=== PATIENT | female | born 1940 | race Caucasian/White ===

== ENCOUNTER 2017-09-07 09:49 | Emergency (ER) | payer OTHER, SELFPAY ==
[2017-09-07 10:00] VITALS: BP 128/70; PULSE 88; RESP 18; TEMP 36.7; O2SAT 97
--- NOTE | 2017-09-07 10:00 | ED_ITS ---
HPI - Skin/Abscess/Foreign Bdy General Chief complaint: Skin/Abscess/Foreign Body Stated complaint: cat scratch on right leg/increasing redness Time Seen by Provider: 09/07/17 09:53 Source: patient Mode of arrival: ambulatory Limitations: no limitations History of Present Illness HPI narrative: 76-year-old female here for evaluation of suspected infection in her right lower extremity. Patient states that 2 days ago she was scratched by her cat. Went into the walk-in clinic and was given a prescription for azithromycin. She states that she took the 1st dose of that medication last evening however threw up shortly afterwards. States she took another dose of the antibiotic this morning and did not throw up. She states that she woke up this morning and had increasing redness in her lower extremity went back in to the walk-in clinic to instructed her to come to the emergency department. She reports no fevers. Minimal pain in her right lower extremity. Is able to ambulate. Related Data Home Medications Medication Instructions Recorded Confirmed ibuprofen [Advil] #0 05/21/16 09/06/17 pentosan polysulfate sodium 100 mg PO TID #0 05/21/16 09/06/17 [Elmiron] multivitamin [Multiple Vitamins] 1 tab PO QDAY #0 10/25/16 09/06/17 Previous Rx's Medication Instructions Recorded acetaminophen-codeine 1 tab PO Q6HP PRN #30 tab 07/30/16 diclofenac sodium [Voltaren] 1 alvin TOPICAL QIDP PRN #100 gm 07/30/16 oxybutynin chloride 5 - 10 mg PO QDAY #90 tab 07/30/16 DIPHENHYDRAMINE/LIDO VISC/MAALOX 0 ml PO Q4HP PRN #100 ml 09/30/16 1:1:1~ clotrimazole 10 mg PO 5XD #70 olga 09/30/16 DIPHENHYDRAMINE/LIDO VISC/MAALOX 5 ml PO Q4HP PRN #100 ml 01/13/17 1:1:1~ [Compression Socks] #2 01/13/17 rizatriptan [Maxalt] 10 mg PO QDAYP PRN #30 tab 01/13/17 triamcinolone acetonide 1 alvin TOPICAL BID #15 gm 02/14/17 doxepin 25 mg PO QDAY #30 cap 03/14/17 nystatin [Nystop] 100,000 unit TOPICAL BID #30 gm 03/14/17 atenolol 50 mg PO QDAY #180 tab 06/03/17 cephalexin [Keflex] 500 mg PO TID #15 cap 07/04/17 lorazepam 0.5 mg tablet 0.5 mg PO PRN PRN #90 tab 08/27/17 azithromycin 250 mg tablet See Label Instructions PO .COMPLEX 09/06/17 #6 tab doxycycline hyclate 100 mg PO Q12H 7 Days #14 cap 09/07/17 ondansetron [Zofran ODT] 4 mg PO Q6H PRN #7 tab 09/07/17 Allergies Allergy/AdvReac Type Severity Reaction Status Date / Time phenazopyridine [From AZO] Allergy Mild RASH Verified 09/06/17 13:58 ranitidine [RANITIDINE] Allergy Unknown Verified 09/06/17 13:58 Review of Systems Constitutional Denies chills, Denies fever(s), Denies lethargy and Denies weakness ENT Ears, Nose, Mouth, and Throat: Denies throat swelling Respiratory Denies wheezing Musculoskeletal Comments: Redness with minimal swelling to her right lower extremity around the area where she was scratched by her cat Integumentary/Breasts Comments: Worsening redness right lower extremity Neurologic Denies weakness Comments: No numbness or tingling right lower extremity Hematologic/Lymphatic Denies easy bruising Allergic/Immunologic Denies urticaria, Denies throat swelling and Denies wheezing [facility] Surgical History History of cataract removal with insertion of prosthetic lens History of tonsillectomy Social History Smoking Status: Never smoker Exam Initial Vital Signs Initial Vital Signs: Vital Signs Temperature 98.0 F 09/07/17 10:00 Pulse Rate 88 09/07/17 10:00 Respiratory Rate 18 09/07/17 10:00 Blood Pressure 128/70 H 09/07/17 10:00 Pulse Oximetry 97 09/07/17 10:00 Const General: cooperative and well developed Nutritional Appearance: well nourished Orientation: alert, awake, oriented x3 and not confused Cardio Other: 2+ DP pulse on the right lower extremity Capillary refill less than 2 sec Skin Other: Patient with 3 scratches on the lateral aspect of her right lower extremity just proximal to the ankle consistent with her stated history of a cat scratch. No bleeding. No pustules. With scabs over the area. Patient with a large area of erythema that is minimally warm and not tender to palpation that is circumferential around her right lower extremity does not go distal to the ankle does not go proximal to the mid calf. No pustules. No vesicles. Neuro Other: Sensation intact to light touch right lower extremity Patient ambulatory Extrem Other: Redness around her right lower extremities as described in the skin section. Patient able to move right knee without problems right ankle without problems. Course Vital Signs - 8 hr 09/07/17 10:00 09/07/17 11:11 Temperature 98.0 F Pulse Rate 88 80 Respiratory Rate 18 18 Blood Pressure 128/70 H 116/71 Pulse Oximetry 97 97 MDM - Skin/Abscess/Foreign Bdy MDM Narrative Medical decision making narrative: Patient with redness and minimally warm area on her right lower extremity and in the setting of the cat scratches concerning for cellulitis. Patient is afebrile. Is nontoxic appearing. Unsure as to whether this is a outpatient treatment failure since she did vomit her azithromycin last night. Azithromycin was prescribed by the walk-in clinic. She did take 1 dose of it this morning. Her exam is not consistent with an abscess. Not consistent with septic joint. Considered admitting to the hospital for IV antibiotics however in the setting of her not having a course of antibiotics at home will send home with doxycycline. Patient was instructed to stop these with Azithromycin. The area of redness was outlined. She was given return precautions. She is instructed that if she started to have fevers , inability to tolerate the oral antibiotics or redness expanding outside of the outlined area she needed to return to the emergency department for admission and IV antibiotics. She expressed understanding and agreement with plan Discharge Plan Departure Patient Disposition: Home, Self-Care Clinical Impression: Cellulitis Discharge Date/Time: 09/07/17 11:01 Interventions: ED Discharge Assessment Last Done: 09/07/17 11:11 Instructions: DI for Cellulitis -- Adult Activity Restrictions/Additional Instructions: Stop the antibiotics that you were given yesterday and start the antibiotics that I gave you today. You may shower like normal. If you start to develop fevers, inability to take the oral antibiotics or spread of the redness outside of the outlined area you do need to return to the emergency department for further evaluation. Prescriptions: New doxycycline hyclate 100 mg capsule 100 mg PO Q12H 7 Days Qty: 14 RF: 0 ondansetron [Zofran ODT] 4 mg tablet,disintegrating 4 mg PO Q6H PRN (Reason: nausea and vomiting) Qty: 7 RF: 0 No Action azithromycin [Zithromax Z-Franco] 250 mg tablet See Label Instructions PO .COMPLEX Qty: 6 RF: 0 pentosan polysulfate sodium [Elmiron] 100 MG capsule 100 mg PO TID Qty: 0 RF: 0 ibuprofen [Advil] 100 MG tablet Qty: 0 RF: 0 acetaminophen-codeine 30 MG/300 MG tablet 1 tab PO Q6HP PRNQty: 30 RF: 0 oxybutynin chloride 5 MG tablet 5 - 10 mg PO QDAY Qty: 90 RF: 1 diclofenac sodium [Voltaren] 1 % gel 1 alvin Topical QIDP PRNQty: 100 RF: 2 DIPHENHYDRAMINE/LIDO VISC/MAALOX 1:1:1~ 100 ML PO Q4HP PRNQty: 100 RF: 0 clotrimazole 10 MG alexys 10 mg PO 5XD Qty: 70 RF: 0 multivitamin [Multiple Vitamins] 1 EACH tablet 1 tab PO QDAY Qty: 0 RF: 0 rizatriptan [Maxalt] 10 MG tablet 10 mg PO QDAYP PRNQty: 30 RF: 1 DIPHENHYDRAMINE/LIDO VISC/MAALOX 1:1:1~ 100 ML 5 ml PO Q4HP PRNQty: 100 RF: 1 [Compression Socks] Qty: 2 RF: 0 triamcinolone acetonide 0.1 % ointment 1 alvin Topical BID Qty: 15 RF: 0 doxepin 25 MG capsule 25 mg PO QDAY Qty: 30 RF: 1 nystatin [Nystop] 30 GM powder 100,000 unit Topical BID Qty: 30 RF: 1 atenolol 25 MG tablet 50 mg PO QDAY Qty: 180 RF: 1 cephalexin [Keflex] 500 MG capsule 500 mg PO TID Qty: 15 RF: 0 lorazepam [Ativan] 0.5 mg tablet 0.5 mg PO PRN PRN (Reason: anxiety) Qty: 90 RF: 0
[2017-09-07 11:11] VITALS: BP 116/71; PULSE 80; RESP 18; O2SAT 97
== END 2017-09-07 11:01 | disposition home or self-care (01) ==
PROVIDERS: Emergency Provider Emergency Medicine; PCP Family Medicine
DX: L03.115 Cellulitis of right lower limb (principal)
CPT/HCPCS: 99282

== ENCOUNTER 2017-09-08 07:49 | Emergency (ER) | payer OTHER, SELFPAY ==
--- NOTE | 2017-09-08 08:41 | ED.SKABFB ---
HPI - Skin/Abscess/Foreign Bdy General Chief complaint: Skin/Abscess/Foreign Body Stated complaint: BAD RASH GETTING WORSE Time Seen by Provider: 09/08/17 08:29 Source: patient Mode of arrival: ambulatory Limitations: no limitations History of Present Illness HPI narrative: Patient is here for evaluation of right lower extremity cellulitis. I evaluated this patient yesterday for concerns of worsening infection after she sustained a cat bite to her right lower extremity. I did start her on amoxicillin yesterday. She states she took 2 doses that amoxicillin. She states that she returned today because she was having some pain and redness in her right upper thigh was instructed to return if the redness worsened. No fevers. Related Data Home Medications Medication Instructions Recorded Confirmed ibuprofen [Advil] #0 05/21/16 09/06/17 pentosan polysulfate sodium 100 mg PO TID #0 05/21/16 09/06/17 [Elmiron] multivitamin [Multiple Vitamins] 1 tab PO QDAY #0 10/25/16 09/06/17 Previous Rx's Medication Instructions Recorded acetaminophen-codeine 1 tab PO Q6HP PRN #30 tab 07/30/16 diclofenac sodium [Voltaren] 1 alvin TOPICAL QIDP PRN #100 gm 07/30/16 oxybutynin chloride 5 - 10 mg PO QDAY #90 tab 07/30/16 DIPHENHYDRAMINE/LIDO VISC/MAALOX 0 ml PO Q4HP PRN #100 ml 09/30/16 1:1:1~ clotrimazole 10 mg PO 5XD #70 olga 09/30/16 DIPHENHYDRAMINE/LIDO VISC/MAALOX 5 ml PO Q4HP PRN #100 ml 01/13/17 1:1:1~ [Compression Socks] #2 01/13/17 rizatriptan [Maxalt] 10 mg PO QDAYP PRN #30 tab 01/13/17 triamcinolone acetonide 1 alvin TOPICAL BID #15 gm 02/14/17 doxepin 25 mg PO QDAY #30 cap 03/14/17 nystatin [Nystop] 100,000 unit TOPICAL BID #30 gm 03/14/17 atenolol 50 mg PO QDAY #180 tab 06/03/17 cephalexin [Keflex] 500 mg PO TID #15 cap 07/04/17 azithromycin 250 mg tablet See Label Instructions PO .COMPLEX 09/06/17 #6 tab doxycycline hyclate 100 mg PO Q12H 7 Days #14 cap 09/07/17 ondansetron [Zofran ODT] 4 mg PO Q6H PRN #7 tab 09/07/17 lorazepam 0.5 mg tablet 0.5 mg PO PRN PRN #90 tab 09/08/17 Allergies Allergy/AdvReac Type Severity Reaction Status Date / Time phenazopyridine [From AZO] Allergy Mild RASH Verified 09/06/17 13:58 ranitidine [RANITIDINE] Allergy Unknown Verified 09/06/17 13:58 Review of Systems Constitutional Denies chills, Denies fever(s), Denies lethargy and Denies weakness Cardiovascular Denies chest pain and Denies dyspnea Respiratory Denies cough and Denies dyspnea Gastrointestinal Gastrointestinal: Denies constipation, Denies diarrhea, Denies nausea and Denies vomiting Musculoskeletal Comments: No right knee pain no right ankle pain no right foot pain Integumentary/Breasts Comments: Redness to right lower extremity Neurologic Denies weakness Comments: No tingling to the right lower extremity Hematologic/Lymphatic Denies easy bruising PFSH Social History Smoking Status: Never smoker Exam Initial Vital Signs Initial Vital Signs: Vital Signs Temperature 97.9 F 09/08/17 08:44 Pulse Rate 80 09/08/17 08:44 Respiratory Rate 18 09/08/17 08:44 Blood Pressure 125/76 H 09/08/17 08:44 Pulse Oximetry 95 09/08/17 08:44 Skin Other: Patient with redness on the right lower extremity that is consistent with yesterday's exam. Does not extend past the markings. Does seem to be slightly improved from yesterday's exam. The redness in her right groin is minimal. Is somewhat tender to palpation Neuro Other: Sensation intact to light touch right lower extremity Extrem Other: Right knee unremarkable Right ankle unremarkable MDM - Skin/Abscess/Foreign Bdy MDM Narrative Medical decision making narrative: Patient has taken 2 doses of her antibiotics. The redness of her right lower extremity is certainly not worse and potentially is improved from yesterday's exam. She is nontoxic-appearing. The pain in her right groin and his expected in this situation. I suspect that these are reactive lymph nodes. I did discuss with the patient the indications for admission to the hospital. Offered admission versus follow up with her primary care doctor. I did leave the room to call the primary care doctor to see if I could set up a follow-up in 1 week's time. Prior to my discussion with the primary doctor and prior to my return to the room the patient and family member had left. Uncertain as to whether they eloped or whether nursing discharged the patient by mistake. This was done prior to my placing a discharge order. We did discuss return precautions prior to my leaving the room to call the primary doctor. I was told that the patient left and was going to go down to her primary doctor's office to schedule follow-up appointment. Discharge Plan Departure Patient Disposition: Home, Self-Care Clinical Impression: Cellulitis Discharge Date/Time: 09/08/17 09:00 Interventions: ED Discharge Assessment Last Done: 09/08/17 09:00 Prescriptions: No Action azithromycin [Zithromax Z-Franco] 250 mg tablet See Label Instructions PO .COMPLEX Qty: 6 RF: 0 pentosan polysulfate sodium [Elmiron] 100 MG capsule 100 mg PO TID Qty: 0 RF: 0 ibuprofen [Advil] 100 MG tablet Qty: 0 RF: 0 acetaminophen-codeine 30 MG/300 MG tablet 1 tab PO Q6HP PRNQty: 30 RF: 0 oxybutynin chloride 5 MG tablet 5 - 10 mg PO QDAY Qty: 90 RF: 1 diclofenac sodium [Voltaren] 1 % gel 1 alvin Topical QIDP PRNQty: 100 RF: 2 DIPHENHYDRAMINE/LIDO VISC/MAALOX 1:1:1~ 100 ML PO Q4HP PRNQty: 100 RF: 0 clotrimazole 10 MG alexys 10 mg PO 5XD Qty: 70 RF: 0 multivitamin [Multiple Vitamins] 1 EACH tablet 1 tab PO QDAY Qty: 0 RF: 0 rizatriptan [Maxalt] 10 MG tablet 10 mg PO QDAYP PRNQty: 30 RF: 1 DIPHENHYDRAMINE/LIDO VISC/MAALOX 1:1:1~ 100 ML 5 ml PO Q4HP PRNQty: 100 RF: 1 [Compression Socks] Qty: 2 RF: 0 triamcinolone acetonide 0.1 % ointment 1 alvin Topical BID Qty: 15 RF: 0 doxepin 25 MG capsule 25 mg PO QDAY Qty: 30 RF: 1 nystatin [Nystop] 30 GM powder 100,000 unit Topical BID Qty: 30 RF: 1 atenolol 25 MG tablet 50 mg PO QDAY Qty: 180 RF: 1 cephalexin [Keflex] 500 MG capsule 500 mg PO TID Qty: 15 RF: 0 lorazepam [Ativan] 0.5 mg tablet 0.5 mg PO PRN PRN (Reason: anxiety) Qty: 90 RF: 0 doxycycline hyclate 100 mg capsule 100 mg PO Q12H 7 Days Qty: 14 RF: 0 ondansetron [Zofran ODT] 4 mg tablet,disintegrating 4 mg PO Q6H PRN (Reason: nausea and vomiting) Qty: 7 RF: 0
[2017-09-08 08:44] VITALS: BP 125/76; PULSE 80; RESP 18; TEMP 36.6; O2SAT 95
== END 2017-09-08 09:00 | disposition home or self-care (01) ==
PROVIDERS: Emergency Provider Emergency Medicine; PCP Family Medicine
DX: L03.115 Cellulitis of right lower limb (principal)
CPT/HCPCS: 99282

== ENCOUNTER → 2017-09-12 14:25 | Outpatient (CLI) | payer OTHER, SELFPAY ==
[2017-09-12 14:59] LABS: Add Manual Diff / Slide Review NO; Basophils Percent Auto 1.1 % (0-2); Eosinophils Percent Auto 2.4 % (2-4); Hematocrit 41.8 % (36-46); Hemoglobin 14.7 g/dL (12.0-16.0); Lymphocytes Percent Auto 30.7 % (25-40); Mean Corpuscular Hemoglobin 33.1 PG (26-34); Mean Corpuscular Volume 94.4 fL (80-100); Monocytes Percent Auto 10.3 % (3-14); Neutrophils Absolute Auto 4800 /uL (3000-5900); Neutrophils Percent Auto 55.5 % (50-75); Platelet Count 235 X10^3/uL (150-400); Red Blood Cell Count 4.43 X10^6/uL (4.0-5.2); White Blood Cell Count 8.7 X10^3/uL (4.5-11.0)
== END ==
PROVIDERS: PCP Family Medicine; Visit Provider Family Medicine
DX: L03.90 Cellulitis, unspecified (principal)
CPT/HCPCS: 36415; 85025; 87040

== ENCOUNTER 2017-10-03 09:45 | Outpatient (RCR) | payer OTHER, SELFPAY ==
--- NOTE | 2017-09-12 16:58 | PT.OIE ---
Current Diagnoses Pain in right hip (09/12/17) Low back pain (09/12/17) Trochanteric bursitis, right hip (09/12/17) Past Medical History (Last Updated 09/12/17 @ 16:18 by Anila Kinney, PT) Depression (Acute) Past Surgical History (Last Reviewed 09/07/17 @ 10:49 by Angelito Martinez DO) History of cataract removal with insertion of prosthetic lens History of tonsillectomy Provider Visit Care Team Role Provider Type Rebecca Webber MD Attending Provider Physician Primary Care Provider Specialty: Family Practice Address: [address] [place] [address] Email: [email or web address] Physical Therapy Initial Evaluation PT-OP-A Visit Information Start: 09/12/17 08:29 Freq: Status: Active Protocol: Document 09/12/17 10:30 AMB (Rec: 09/12/17 16:17 AMB [email or web address]) Out-Patient Physical Therapy Visit Information Visit Information Visit Type Initial Evaluation Visit Note 15 visits authorized Visit Start Time 10:30 Visit Stop Time 11:15 Total Visit Minutes 45 Visit Number 1 Evaluation Information Evaluation Date 09/12/17 PT-OP-B Current Condition Start: 09/12/17 08:29 Freq: Status: Active Protocol: Document 09/12/17 16:19 AMB (Rec: 09/12/17 16:23 AMB [email or web address]) Current Condition History of Current Condition Current Complaints R>L hip pain with low back pain History of Current Condition Pt reports a long history of insidious onset hip and low back pain. She has had cortisone injections in her trochanteric bursas which help somewhat. She has had X-rays of her hips and knees years ago. Treatment Goals Patient/Caregiver Goals Return to [employer] Prior Functional Status Baseline Function- ADL's Independent Baseline Function- Mobility Independent Current Functional Impairments (Reported) Functional Limitations- ADL's Difficulty sleeping and driving due to hip/low back pain. Personal Factors Other Personal Factors That May Effect has an Alzheimer's Therapy/Recovery diagnosis and they live independently in their home. PT-OP-C Subjective Start: 09/12/17 08:29 Freq: Status: Active Protocol: Document 09/12/17 10:30 AMB (Rec: 09/12/17 16:17 AMB [email or web address]) OP-PT Subjective Patient Comments Patient Comments Pt reports chronic R>L hip and low back pain worse with extended standing and walking. Patient Questionnaires Lower Extremity Functional Scale LEFS Score 39 LEFS Impairment 40 to 59% Impaired (Score 32- 47) Oswestry Low Back Index Oswestry Score 35 Oswestry Impairment 20 to 39% Impaired (Score 20- 39) OP-PT Pain Assessment Pain Assessment Grid Paper Pain Assessment Grid Completed Yes Location R>L hip, low back Intensity 5 PT-OP-J Posture/Palpation/Skin Start: 09/12/17 08:29 Freq: Status: Active Protocol: Document 09/12/17 16:19 AMB (Rec: 09/12/17 16:23 AMB [email or web address]) Posture Evaluation Comments Posture Comments Right hip high in standing Palpation Assessment Location One Palpation Location lateral thighgs Palpation Findings Tenderness Palpation Details Tenderness over IT band L>R Skin Assessment Other Assessments Skin Assessment Comments Pt seen for cellulitis in ED for R lower leg infection after a cat scratch, currently on antibiotics PT-OP-K Range of Motion Start: 09/12/17 08:29 Freq: Status: Active Protocol: Document 09/12/17 10:30 AMB (Rec: 09/12/17 16:48 AMB [email or web address]) Lumbar Spine Range of Motion Lumbar Spine Active Degrees Testing Position standing Flexion 60 Extension 20 Lateral Flexion Left 20 Lateral Flexion Right 15 Hip Goniometric Range of Motion Hip Measured in Degrees Right Passive Testing Position Supine Flexion w/Knee Flexed 120 Internal Rotation 30 External Rotation 45 Left Passive Testing Position Supine Flexion w/Knee Flexed 110 Internal Rotation 45 External Rotation 50 PT-OP-M Strength Start: 09/12/17 08:29 Freq: Status: Active Protocol: Document 09/12/17 09:00 AMB (Rec: 09/12/17 16:57 AMB [email or web address]) Hip Strength Hip Manual Muscle Testing Left Flexion (L2) 4 Good Extension (S1) 3+ Fair+ Abduction 4 Good Right Flexion (L2) 4- Good- Extension (S1) 3 Fair Abduction 4 Good PT-OP-T Assessment and Plan Start: 09/12/17 08:29 Freq: Status: Active Protocol: Document 09/12/17 10:30 AMB (Rec: 09/12/17 16:56 AMB [email or web address]) Physical Therapy Assessment Rehab Potential Rehabilitation Potential Good Evaluation Complexity Number of Personal Factors/Comorbidities 1-2 Number of Body Systems Impaired 4 or More Clinical Presentation at Evaluation Evolving Impairments Impairments Functional Activities Pain Posture Soft Tissue Mobility Strength Goals 2 Impairment Return to exercise Short Term Goal (STG) The patient will be independent with a stretching and strengthening program for her hips and back. STG Duration 4 weeks Long-Term Goal (LTG) The patient will be independent and consistent with her return to a flux - neutrinity exercise program. LTG Duration 8 weeks 1 Impairment Positional tolerance Short Term Goal (STG) The patient will sleep for 7 hours with 3/10 hip pain or less. STG Duration 4 weeks [employer] Goal (LTG) The patient will drive for 2 hours with 3/10 hip pain or less. LTG Duration 8 weeks Assessment Summary Assessment The patient attends physical therapy with chronic R>L hip and low back pain. She had poor hip extension strength, and has poor posutral habits. She will benefit from a physical therapy program to improve her posture, core strength, and hip strength so that she can improve her standing, sitting, and sleeping tolerance. Physical Therapy Plan Frequency and Duration Frequency of Treatment 2x/Week Duration of Treatment 8 weeks Plan of Care Start Date 09/12/17 Plan of Care End Date 11/07/17 Therapeutic Interventions Therapeutic Interventions Aquatic Therapy Balance Training Gait Training Home Exercise Program Manual Therapy Neuromuscular Re-education Self-Care/Home Management Therapeutic Activities Therapeutic Exercises Modalities Cold Pack/Ice Massage Electric Stimulation Hot Packs Ultrasound Next Visit Focus/Plan Next Note Type Treatment Note Please Sign and Return: I have reviewed this Plan of Care and certify that the skilled therapy services above are required to meet the patient???s needs. Physician Signature Date Printed Name and Credentials Clinical Instructor Signature Printed Name and Credentials
--- NOTE | 2017-09-12 17:03 | PT.OPPOC ---
Current Diagnoses Pain in right hip (09/12/17) Low back pain (09/12/17) Trochanteric bursitis, right hip (09/12/17) Provider Visit Care Team Role Provider Type Rebecca Webber MD Attending Provider Physician Primary Care Provider Specialty: Family Practice Address: [address] [place] [address], [facility] Email: [email or web address] Plan Of Care PT-OP-T Assessment and Plan Start: 09/12/17 08:29 Freq: Status: Active Protocol: Document 09/12/17 10:30 AMB (Rec: 09/12/17 16:56 AMB [email or web address]) Physical Therapy Assessment Rehab Potential Rehabilitation Potential Good Evaluation Complexity Number of Personal Factors/Comorbidities 1-2 Number of Body Systems Impaired 4 or More Clinical Presentation at Evaluation Evolving Impairments Impairments Functional Activities Pain Posture Soft Tissue Mobility Strength Goals 2 Impairment Return to exercise Short Term Goal (STG) The patient will be independent with a stretching and strengthening program for her hips and back. STG Duration 4 weeks Fdc Goal (LTG) The patient will be independent and consistent with her return to a [employer] exercise program. LTG Duration 8 weeks 1 Impairment Positional tolerance Short Term Goal (STG) The patient will sleep for 7 hours with 3/10 hip pain or less. STG Duration 4 weeks [employer] Goal (LTG) The patient will drive for 2 hours with 3/10 hip pain or less. LTG Duration 8 weeks Assessment Summary Assessment The patient attends physical therapy with chronic R>L hip and low back pain. She had poor hip extension strength, and has poor posutral habits. She will benefit from a physical therapy program to improve her posture, core strength, and hip strength so that she can improve her standing, sitting, and sleeping tolerance. Physical Therapy Plan Frequency and Duration Frequency of Treatment 2x/Week Duration of Treatment 8 weeks Plan of Care Start Date 09/12/17 Plan of Care End Date 11/07/17 Therapeutic Interventions Therapeutic Interventions Aquatic Therapy Balance Training Gait Training Home Exercise Program Manual Therapy Neuromuscular Re-education Self-Care/Home Management Therapeutic Activities Therapeutic Exercises Modalities Cold Pack/Ice Massage Electric Stimulation Hot Packs Ultrasound Next Visit Focus/Plan Next Note Type Treatment Note Plan of Care Dates Plan of Care Start Date 09/12/17 Plan of Care End Date 11/07/17 Please Sign and Return: I have reviewed this Plan of Care and certify that the skilled therapy services above are required to meet the patient???s needs. Physician Signature Date Printed Name and Credentials Clinical Instructor Signature Printed Name and Credentials
--- NOTE | 2017-09-19 07:08 | PT.OTN ---
Current Diagnoses Pain in right hip (09/18/17) Low back pain (09/18/17) Trochanteric bursitis, right hip (09/18/17) Physical Therapy Treatment Note PT-OP-A Visit Information Start: 09/12/17 08:29 Freq: Status: Active Protocol: Document 09/18/17 11:15 AMB (Rec: 09/18/17 11:15 AMB [id number]) Out-Patient Physical Therapy Visit Information Visit Information Visit Type Treatment Note Visit Note 15 v authorized Visit Start Time 11:15 Visit Stop Time 12:00 Total Visit Minutes 45 Visit Number 2 Evaluation Information Evaluation Date 09/12/17 PT-OP-B Current Condition Start: 09/12/17 08:29 Freq: Status: Active Protocol: Document 09/12/17 16:19 AMB (Rec: 09/12/17 16:23 AMB [email or web address]) Current Condition History of Current Condition Current Complaints R>L hip pain with low back pain History of Current Condition Pt reports a long history of insidious onset hip and low back pain. She has had cortisone injections in her trochanteric bursas which help somewhat. She has had X-rays of her hips and knees years ago. Treatment Goals Patient/Caregiver Goals Return to [employer] workout Prior Functional Status Baseline Function- ADL's Independent Baseline Function- Mobility Independent Current Functional Impairments (Reported) Functional Limitations- ADL's Difficulty sleeping and driving due to hip/low back pain. Personal Factors Other Personal Factors That May Effect has an Alzheimer's Therapy/Recovery diagnosis and they live independently in their home. PT-OP-C Subjective Start: 09/12/17 08:29 Freq: Status: Active Protocol: Document 09/18/17 11:15 AMB (Rec: 09/18/17 11:23 AMB [id number]) OP-PT Subjective Patient Comments Patient Comments The patient reports her hips are feeling better today. PT-OP-J Posture/Palpation/Skin Start: 09/12/17 08:29 Freq: Status: Active Protocol: Document 09/12/17 16:19 AMB (Rec: 09/12/17 16:23 AMB [email or web address]) Posture Evaluation Comments Posture Comments Right hip high in standing Palpation Assessment Location One Palpation Location lateral thighgs Palpation Findings Tenderness Palpation Details Tenderness over IT band L>R Skin Assessment Other Assessments Skin Assessment Comments Pt seen for cellulitis in ED for R lower leg infection after a cat scratch, currently on antibiotics PT-OP-K Range of Motion Start: 09/12/17 08:29 Freq: Status: Active Protocol: Document 09/12/17 10:30 AMB (Rec: 09/12/17 16:48 AMB [email or web address]) Lumbar Spine Range of Motion Lumbar Spine Active Degrees Testing Position standing Flexion 60 Extension 20 Lateral Flexion Left 20 Lateral Flexion Right 15 Hip Goniometric Range of Motion Hip Measured in Degrees Right Passive Testing Position Supine Flexion w/Knee Flexed 120 Internal Rotation 30 External Rotation 45 Left Passive Testing Position Supine Flexion w/Knee Flexed 110 Internal Rotation 45 External Rotation 50 PT-OP-M Strength Start: 09/12/17 08:29 Freq: Status: Active Protocol: Document 09/12/17 09:00 AMB (Rec: 09/12/17 16:57 AMB [email or web address]) Hip Strength Hip Manual Muscle Testing Left Flexion (L2) 4 Good Extension (S1) 3+ Fair+ Abduction 4 Good Right Flexion (L2) 4- Good- Extension (S1) 3 Fair Abduction 4 Good PT-OP-Q Treatments Start: 09/12/17 08:29 Freq: Status: Active Protocol: Document 09/18/17 11:15 AMB (Rec: 09/19/17 07:08 AMB [email or web address]) Cardio Equipment Recumbent Bicycle Duration (Minutes) 6 Resistance 8 Therapeutic Exercises Supine Exercises 7 Supine Exercise Name hip ER with T band Equipment Used #2 6 Supine Exercise Name piriformis stretch Side bilateral 5 Supine Exercise Name eccentric SLR Side bilateral 4 Supine Exercise Name pelvic tilt Side bilateral 3 Supine Exercise Name IT band stretch Side bilateral 2 Supine Exercise Name hamstring stretch Side bilateral 1 Supine Exercise Name hip flexor stretch Side bilateral PT-OP-T Assessment and Plan Start: 09/12/17 08:29 Freq: Status: Active Protocol: Document 09/18/17 11:15 AMB (Rec: 09/19/17 07:08 AMB [email or web address]) Physical Therapy Assessment Assessment Summary Assessment Pt tolerated exercises well. She is planning to get a cortisone shot on Friday. She had difficulty tolerating sidelying. Physical Therapy Plan Frequency and Duration Frequency of Treatment 2x/Week Duration of Treatment 8 weeks Plan of Care Start Date 09/12/17 Plan of Care End Date 11/07/17 Next Visit Focus/Plan Next Note Type Treatment Note Next Visit Plan Progress core/ hip strengthening Please Sign and Return: I have reviewed this Plan of Care and certify that the skilled therapy services above are required to meet the patient?s needs. Physician Signature Date Printed Name and Credentials Clinical Instructor Signature Printed Name and Credentials
--- NOTE | 2017-09-22 16:19 | PT.OTN ---
Current Diagnoses Pain in right hip (09/22/17) Low back pain (09/22/17) Trochanteric bursitis, right hip (09/22/17) Physical Therapy Treatment Note PT-OP-A Visit Information Start: 09/12/17 08:29 Freq: Status: Active Protocol: Document 09/22/17 09:00 AMB (Rec: 09/22/17 09:17 AMB [id number]) Out-Patient Physical Therapy Visit Information Visit Information Visit Type Treatment Note Visit Note 15 v authorized Visit Start Time 09:00 Visit Stop Time 09:45 Total Visit Minutes 45 Visit Number 3 Evaluation Information Evaluation Date 09/12/17 PT-OP-B Current Condition Start: 09/12/17 08:29 Freq: Status: Active Protocol: Document 09/12/17 16:19 AMB (Rec: 09/12/17 16:23 AMB [email or web address]) Current Condition History of Current Condition Current Complaints R>L hip pain with low back pain History of Current Condition Pt reports a long history of insidious onset hip and low back pain. She has had cortisone injections in her trochanteric bursas which help somewhat. She has had X-rays of her hips and knees years ago. Treatment Goals Patient/Caregiver Goals Return to [employer] Prior Functional Status Baseline Function- ADL's Independent Baseline Function- Mobility Independent Current Functional Impairments (Reported) Functional Limitations- ADL's Difficulty sleeping and driving due to hip/low back pain. Personal Factors Other Personal Factors That May Effect has an Alzheimer's Therapy/Recovery diagnosis and they live independently in their home. PT-OP-C Subjective Start: 09/12/17 08:29 Freq: Status: Active Protocol: Document 09/22/17 09:00 AMB (Rec: 09/22/17 09:17 AMB [id number]) OP-PT Subjective Patient Comments Patient Comments Pt reports she tried going to a class at [employer] and she had pain later on, but not during the class. PT-OP-J Posture/Palpation/Skin Start: 09/12/17 08:29 Freq: Status: Active Protocol: Document 09/12/17 16:19 AMB (Rec: 09/12/17 16:23 AMB [email or web address]) Posture Evaluation Comments Posture Comments Right hip high in standing Palpation Assessment Location One Palpation Location lateral thighgs Palpation Findings Tenderness Palpation Details Tenderness over IT band L>R Skin Assessment Other Assessments Skin Assessment Comments Pt seen for cellulitis in ED for R lower leg infection after a cat scratch, currently on antibiotics PT-OP-K Range of Motion Start: 09/12/17 08:29 Freq: Status: Active Protocol: Document 09/12/17 10:30 AMB (Rec: 09/12/17 16:48 AMB [email or web address]) Lumbar Spine Range of Motion Lumbar Spine Active Degrees Testing Position standing Flexion 60 Extension 20 Lateral Flexion Left 20 Lateral Flexion Right 15 Hip Goniometric Range of Motion Hip Measured in Degrees Right Passive Testing Position Supine Flexion w/Knee Flexed 120 Internal Rotation 30 External Rotation 45 Left Passive Testing Position Supine Flexion w/Knee Flexed 110 Internal Rotation 45 External Rotation 50 PT-OP-M Strength Start: 09/12/17 08:29 Freq: Status: Active Protocol: Document 09/12/17 09:00 AMB (Rec: 09/12/17 16:57 AMB [email or web address]) Hip Strength Hip Manual Muscle Testing Left Flexion (L2) 4 Good Extension (S1) 3+ Fair+ Abduction 4 Good Right Flexion (L2) 4- Good- Extension (S1) 3 Fair Abduction 4 Good PT-OP-Q Treatments Start: 09/12/17 08:29 Freq: Status: Active Protocol: Document 09/22/17 09:00 AMB (Rec: 09/22/17 16:18 AMB [email or web address]) Cardio Equipment Recumbent Bicycle Duration (Minutes) 6 Resistance 8 Gym Equipment Therapeutic Ball 2 Exercise Details trunk rotation Ball Size/Color 55cm Body Position Hooklying Reps/Duration 2x10 1 Exercise Details hamstring curl on ball Ball Size/Color 55cm Body Position Supine Reps/Duration 3x10 Therapeutic Exercises Supine Exercises 6 Supine Exercise Name piriformis stretch Side bilateral 5 Supine Exercise Name eccentric SLR Side bilateral 4 Supine Exercise Name pelvic tilt Side bilateral 3 Supine Exercise Name IT band stretch Side bilateral 2 Supine Exercise Name hamstring stretch Side bilateral 1 Supine Exercise Name hip flexor stretch Side bilateral PT-OP-T Assessment and Plan Start: 09/12/17 08:29 Freq: Status: Active Protocol: Document 09/22/17 09:00 AMB (Rec: 09/22/17 16:18 AMB [email or web address]) Physical Therapy Assessment Goals 2 Impairment Return to exercise Short Term Goal (STG) The patient will be independent with a stretching and strengthening program for her hips and back. STG Duration 4 weeks Jail Goal (LTG) The patient will be independent and consistent with her return to a [employer] exercise program. LTG Duration 8 weeks 1 Impairment Positional tolerance Short Term Goal (STG) The patient will sleep for 7 hours with 3/10 hip pain or less. STG Duration 4 weeks Armorer Technician Goal (LTG) The patient will drive for 2 hours with 3/10 hip pain or less. LTG Duration 8 weeks Assessment Summary Assessment Good tolerance of therapy ball exercises. Physical Therapy Plan Frequency and Duration Frequency of Treatment 2x/Week Duration of Treatment 8 weeks Plan of Care Start Date 09/12/17 Plan of Care End Date 11/07/17 Next Visit Focus/Plan Next Note Type Treatment Note Next Visit Plan Continue to progress exercise, start working in standing/ sitting. Please Sign and Return: I have reviewed this Plan of Care and certify that the skilled therapy services above are required to meet the patient?s needs. Physician Signature Date Printed Name and Credentials Clinical Instructor Signature Printed Name and Credentials
--- NOTE | 2017-09-26 10:42 | PT.OTN ---
Current Diagnoses Pain in right hip (09/26/17) Low back pain (09/26/17) Trochanteric bursitis, right hip (09/26/17) Physical Therapy Treatment Note PT-OP-A Visit Information Start: 09/12/17 08:29 Freq: Status: Active Protocol: Document 09/26/17 09:45 AMB (Rec: 09/26/17 09:54 AMB [id number]) Out-Patient Physical Therapy Visit Information Visit Information Visit Type Treatment Note Visit Note 15 v authorized Visit Start Time 09:45 Visit Stop Time 10:30 Total Visit Minutes 45 Visit Number 4 Evaluation Information Evaluation Date 09/12/17 PT-OP-B Current Condition Start: 09/12/17 08:29 Freq: Status: Active Protocol: Document 09/12/17 16:19 AMB (Rec: 09/12/17 16:23 AMB [email or web address]) Current Condition History of Current Condition Current Complaints R>L hip pain with low back pain History of Current Condition Pt reports a long history of insidious onset hip and low back pain. She has had cortisone injections in her trochanteric bursas which help somewhat. She has had X-rays of her hips and knees years ago. Treatment Goals Patient/Caregiver Goals Return to [employer] Prior Functional Status Baseline Function- ADL's Independent Baseline Function- Mobility Independent Current Functional Impairments (Reported) Functional Limitations- ADL's Difficulty sleeping and driving due to hip/low back pain. Personal Factors Other Personal Factors That May Effect has an Alzheimer's Therapy/Recovery diagnosis and they live independently in their home. PT-OP-C Subjective Start: 09/12/17 08:29 Freq: Status: Active Protocol: Document 09/26/17 09:45 AMB (Rec: 09/26/17 09:54 AMB [id number]) OP-PT Subjective Patient Comments Patient Comments Pt is going to the yoga class, which is fairly challenging. PT-OP-J Posture/Palpation/Skin Start: 09/12/17 08:29 Freq: Status: Active Protocol: Document 09/12/17 16:19 AMB (Rec: 09/12/17 16:23 AMB [email or web address]) Posture Evaluation Comments Posture Comments Right hip high in standing Palpation Assessment Location One Palpation Location lateral thighgs Palpation Findings Tenderness Palpation Details Tenderness over IT band L>R Skin Assessment Other Assessments Skin Assessment Comments Pt seen for cellulitis in ED for R lower leg infection after a cat scratch, currently on antibiotics PT-OP-K Range of Motion Start: 09/12/17 08:29 Freq: Status: Active Protocol: Document 09/12/17 10:30 AMB (Rec: 09/12/17 16:48 AMB [email or web address]) Lumbar Spine Range of Motion Lumbar Spine Active Degrees Testing Position standing Flexion 60 Extension 20 Lateral Flexion Left 20 Lateral Flexion Right 15 Hip Goniometric Range of Motion Hip Measured in Degrees Right Passive Testing Position Supine Flexion w/Knee Flexed 120 Internal Rotation 30 External Rotation 45 Left Passive Testing Position Supine Flexion w/Knee Flexed 110 Internal Rotation 45 External Rotation 50 PT-OP-M Strength Start: 09/12/17 08:29 Freq: Status: Active Protocol: Document 09/12/17 09:00 AMB (Rec: 09/12/17 16:57 AMB [email or web address]) Hip Strength Hip Manual Muscle Testing Left Flexion (L2) 4 Good Extension (S1) 3+ Fair+ Abduction 4 Good Right Flexion (L2) 4- Good- Extension (S1) 3 Fair Abduction 4 Good PT-OP-Q Treatments Start: 09/12/17 08:29 Freq: Status: Active Protocol: Document 09/26/17 09:45 AMB (Rec: 09/26/17 10:14 AMB [id number]) Cardio Equipment Recumbent Bicycle Duration (Minutes) 7 Resistance 8 Gym Equipment Cable Column (Body Solid) Hip Adduction Resistance 6 plates Reps/Time 3x10 Hip Abduction Resistance 3 plates Reps/Time 3x10 Therapeutic Exercises Supine Exercises 6 Supine Exercise Name piriformis stretch Side bilateral 5 Supine Exercise Name eccentric SLR Side bilateral 4 Supine Exercise Name pelvic tilt Side bilateral 3 Supine Exercise Name IT band stretch Side bilateral 2 Supine Exercise Name hamstring stretch Side bilateral 1 Supine Exercise Name hip flexor stretch Side bilateral PT-OP-T Assessment and Plan Start: 09/12/17 08:29 Freq: Status: Active Protocol: Document 09/26/17 09:45 AMB (Rec: 09/26/17 10:41 AMB [email or web address]) Physical Therapy Assessment Assessment Summary Assessment Continue to need to work on hip abductor strength. Physical Therapy Plan Frequency and Duration Frequency of Treatment 2x/Week Duration of Treatment 8 weeks Plan of Care Start Date 09/12/17 Plan of Care End Date 11/07/17 Next Visit Focus/Plan Next Note Type Treatment Note Next Visit Plan Progress standing exercise Please Sign and Return: I have reviewed this Plan of Care and certify that the skilled therapy services above are required to meet the patient?s needs. Physician Signature Date Printed Name and Credentials Clinical Instructor Signature Printed Name and Credentials
--- NOTE | 2017-09-30 07:02 | PT.OTN ---
Current Diagnoses Pain in right hip (09/29/17) Low back pain (09/29/17) Trochanteric bursitis, right hip (09/29/17) Physical Therapy Treatment Note PT-OP-A Visit Information Start: 09/12/17 08:29 Freq: Status: Active Protocol: Document 09/29/17 09:00 AMB (Rec: 09/29/17 09:12 AMB [id number]) Out-Patient Physical Therapy Visit Information Visit Information Visit Type Treatment Note Visit Note 15 v authorized Visit Start Time 09:00 Visit Stop Time 09:45 Total Visit Minutes 45 Visit Number 5 Evaluation Information Evaluation Date 09/12/17 PT-OP-B Current Condition Start: 09/12/17 08:29 Freq: Status: Active Protocol: Document 09/12/17 16:19 AMB (Rec: 09/12/17 16:23 AMB [email or web address]) Current Condition History of Current Condition Current Complaints R>L hip pain with low back pain History of Current Condition Pt reports a long history of insidious onset hip and low back pain. She has had cortisone injections in her trochanteric bursas which help somewhat. She has had X-rays of her hips and knees years ago. Treatment Goals Patient/Caregiver Goals Return to [employer] Prior Functional Status Baseline Function- ADL's Independent Baseline Function- Mobility Independent Current Functional Impairments (Reported) Functional Limitations- ADL's Difficulty sleeping and driving due to hip/low back pain. Personal Factors Other Personal Factors That May Effect has an Alzheimer's Therapy/Recovery diagnosis and they live independently in their home. PT-OP-C Subjective Start: 09/12/17 08:29 Freq: Status: Active Protocol: Document 09/29/17 09:00 AMB (Rec: 09/29/17 09:12 AMB [id number]) OP-PT Subjective Patient Comments Patient Comments Pt states hips and back are feeling pretty good today. PT-OP-J Posture/Palpation/Skin Start: 09/12/17 08:29 Freq: Status: Active Protocol: Document 09/12/17 16:19 AMB (Rec: 09/12/17 16:23 AMB [email or web address]) Posture Evaluation Comments Posture Comments Right hip high in standing Palpation Assessment Location One Palpation Location lateral thighgs Palpation Findings Tenderness Palpation Details Tenderness over IT band L>R Skin Assessment Other Assessments Skin Assessment Comments Pt seen for cellulitis in ED for R lower leg infection after a cat scratch, currently on antibiotics PT-OP-K Range of Motion Start: 09/12/17 08:29 Freq: Status: Active Protocol: Document 09/12/17 10:30 AMB (Rec: 09/12/17 16:48 AMB [email or web address]) Lumbar Spine Range of Motion Lumbar Spine Active Degrees Testing Position standing Flexion 60 Extension 20 Lateral Flexion Left 20 Lateral Flexion Right 15 Hip Goniometric Range of Motion Hip Measured in Degrees Right Passive Testing Position Supine Flexion w/Knee Flexed 120 Internal Rotation 30 External Rotation 45 Left Passive Testing Position Supine Flexion w/Knee Flexed 110 Internal Rotation 45 External Rotation 50 PT-OP-M Strength Start: 09/12/17 08:29 Freq: Status: Active Protocol: Document 09/12/17 09:00 AMB (Rec: 09/12/17 16:57 AMB [email or web address]) Hip Strength Hip Manual Muscle Testing Left Flexion (L2) 4 Good Extension (S1) 3+ Fair+ Abduction 4 Good Right Flexion (L2) 4- Good- Extension (S1) 3 Fair Abduction 4 Good PT-OP-Q Treatments Start: 09/12/17 08:29 Freq: Status: Active Protocol: Document 09/29/17 09:00 AMB (Rec: 09/30/17 07:00 AMB [email or web address]) Gym Equipment Therapeutic Ball 3 Exercise Details seated march, LAQ, pelvic pitka's point Ball Size/Color 65cm Comments pt needed fingertip support to be safe with seated ball exercises. 1 Exercise Details hamstring curl on ball Ball Size/Color 55cm Body Position Supine Reps/Duration 3x10 Therapeutic Exercises Supine Exercises 6 Supine Exercise Name piriformis stretch Side bilateral 5 Supine Exercise Name eccentric SLR Side bilateral 4 Supine Exercise Name pelvic tilt Side bilateral 2 Supine Exercise Name hamstring stretch Side bilateral 1 Supine Exercise Name hip flexor stretch Side bilateral Sidelying Exercises 1 Sidelying Exercise Name sidelying hip abduction Reps/Minutes 10 PT-OP-T Assessment and Plan Start: 09/12/17 08:29 Freq: Status: Active Protocol: Document 09/29/17 09:00 AMB (Rec: 09/30/17 07:00 AMB [email or web address]) Physical Therapy Assessment Goals 2 Impairment Return to exercise Short Term Goal (STG) The patient will be independent with a stretching and strengthening program for her hips and back. STG Duration 4 weeks Snf Goal (LTG) The patient will be independent and consistent with her return to a [employer] exercise program. LTG Duration 8 weeks 1 Impairment Positional tolerance Short Term Goal (STG) The patient will sleep for 7 hours with 3/10 hip pain or less. STG Duration 4 weeks Snf Goal (LTG) The patient will drive for 2 hours with 3/10 hip pain or less. LTG Duration 8 weeks Assessment Summary Assessment Pt tolerated hip abduction in sidelying better today. Physical Therapy Plan Frequency and Duration Frequency of Treatment 2x/Week Duration of Treatment 8 weeks Plan of Care Start Date 09/12/17 Plan of Care End Date 11/07/17 Next Visit Focus/Plan Next Note Type Treatment Note Next Visit Plan Possible d/c as pt states she is feeling better Please Sign and Return: I have reviewed this Plan of Care and certify that the skilled therapy services above are required to meet the patient?s needs. Physician Signature Date Printed Name and Credentials Clinical Instructor Signature Printed Name and Credentials
--- NOTE | 2017-10-06 07:21 | PT.OTN ---
Current Diagnoses Pain in right hip (10/03/17) Low back pain (10/03/17) Trochanteric bursitis, right hip (10/03/17) Physical Therapy Treatment Note PT-OP-A Visit Information Start: 09/12/17 08:29 Freq: Status: Active Protocol: Document 10/03/17 09:45 AMB (Rec: 10/03/17 09:46 AMB [id number]) Out-Patient Physical Therapy Visit Information Visit Information Visit Type Discharge Summary Visit Note 15 v authorized Visit Start Time 09:45 Visit Stop Time 10:30 Total Visit Minutes 45 Visit Number 6 Evaluation Information Evaluation Date 09/12/17 PT-OP-B Current Condition Start: 09/12/17 08:29 Freq: Status: Active Protocol: Document 09/12/17 16:19 AMB (Rec: 09/12/17 16:23 AMB [email or web address]) Current Condition History of Current Condition Current Complaints R>L hip pain with low back pain History of Current Condition Pt reports a long history of insidious onset hip and low back pain. She has had cortisone injections in her trochanteric bursas which help somewhat. She has had X-rays of her hips and knees years ago. Treatment Goals Patient/Caregiver Goals Return to [facility] Prior Functional Status Baseline Function- ADL's Independent Baseline Function- Mobility Independent Current Functional Impairments (Reported) Functional Limitations- ADL's Difficulty sleeping and driving due to hip/low back pain. Personal Factors Other Personal Factors That May Effect has an Alzheimer's Therapy/Recovery diagnosis and they live independently in their home. PT-OP-C Subjective Start: 09/12/17 08:29 Freq: Status: Active Protocol: Document 10/03/17 09:45 AMB (Rec: 10/06/17 07:12 AMB [email or web address]) OP-PT Subjective Patient Comments Patient Comments Pt states she feels like she is doing better and can continue her exercises at home at this time. Patient Reported Progress Improving PT-OP-J Posture/Palpation/Skin Start: 09/12/17 08:29 Freq: Status: Active Protocol: Document 10/03/17 09:45 AMB (Rec: 10/06/17 07:19 AMB [email or web address]) Palpation Assessment Location One Palpation Location lateral thighs Palpation Findings Tenderness Palpation Details Tenderness over IT band L>R- decreased from initial eval but steam drier tender PT-OP-K Range of Motion Start: 09/12/17 08:29 Freq: Status: Active Protocol: Document 09/12/17 10:30 AMB (Rec: 09/12/17 16:48 AMB [email or web address]) Lumbar Spine Range of Motion Lumbar Spine Active Degrees Testing Position standing Flexion 60 Extension 20 Lateral Flexion Left 20 Lateral Flexion Right 15 Hip Goniometric Range of Motion Hip Measured in Degrees Right Passive Testing Position Supine Flexion w/Knee Flexed 120 Internal Rotation 30 External Rotation 45 Left Passive Testing Position Supine Flexion w/Knee Flexed 110 Internal Rotation 45 External Rotation 50 PT-OP-M Strength Start: 09/12/17 08:29 Freq: Status: Active Protocol: Document 09/12/17 09:00 AMB (Rec: 09/12/17 16:57 AMB [email or web address]) Hip Strength Hip Manual Muscle Testing Left Flexion (L2) 4 Good Extension (S1) 3+ Fair+ Abduction 4 Good Right Flexion (L2) 4- Good- Extension (S1) 3 Fair Abduction 4 Good PT-OP-Q Treatments Start: 09/12/17 08:29 Freq: Status: Active Protocol: Document 10/03/17 09:45 AMB (Rec: 10/06/17 07:12 AMB [email or web address]) Cardio Equipment Recumbent Bicycle Duration (Minutes) 7 Resistance 8 Gym Equipment Therapeutic Ball 3 Exercise Details seated march, LAQ, pelvic pyramid lake Ball Size/Color 65cm Comments pt needed fingertip support to be safe with seated ball exercises. 2 Exercise Details trunk rotation Ball Size/Color 55cm Body Position Hooklying Reps/Duration 2x10 1 Exercise Details hamstring curl on ball Ball Size/Color 55cm Body Position Supine Reps/Duration 3x10 Therapeutic Exercises Supine Exercises 6 Supine Exercise Name piriformis stretch Side bilateral 5 Supine Exercise Name eccentric SLR Side bilateral 3 Supine Exercise Name IT band stretch Side bilateral 2 Supine Exercise Name hamstring stretch Side bilateral PT-OP-T Assessment and Plan Start: 09/12/17 08:29 Freq: Status: Active Protocol: Document 10/03/17 09:45 AMB (Rec: 10/03/17 10:15 AMB [id number]) Physical Therapy Assessment Goals 2 Impairment Return to exercise Short Term Goal (STG) The patient will be independent with a stretching and strengthening program for her hips and back. MET STG Duration 4 weeks Subsorter Goal (LTG) The patient will be independent and consistent with her return to a [email or web address] exercise program. MET LTG Duration 8 weeks 1 Impairment Positional tolerance Short Term Goal (STG) The patient will sleep for 7 hours with 3/10 hip pain or less. MET (since cortisone injection) STG Duration 4 weeks Fdc Goal (LTG) The patient will drive for 2 hours with 3/10 hip pain or less. MET LTG Duration 8 weeks Assessment Summary Assessment The patient states that her symptoms, while not resolved, are better. She is going concerned that her symptoms will return when the cortisone shot wears off. She is going to continue with her yoga class and her home exercise program. Physical Therapy Plan Discharge Physical Therapy Discharge Reasons Goals Met Please Sign and Return: I have reviewed this Plan of Care and certify that the skilled therapy services above are required to meet the patient?s needs. Physician Signature Date Printed Name and Credentials Clinical Instructor Signature Printed Name and Credentials
== END 2017-11-25 15:34 ==
LOC: PHYS 09:45
PROVIDERS: PCP Family Medicine; Visit Provider Family Medicine
DX: M70.61 Trochanteric bursitis, right hip (principal); M25.551 Pain in right hip; M54.5 Low back pain
CPT/HCPCS: 97110; 97162

== ENCOUNTER → 2017-11-06 14:02 | Outpatient (CLI) | payer OTHER, SELFPAY ==
[2017-11-06 14:43] LABS: Add Manual Diff / Slide Review NO; Basophils Percent Auto 0.6 % (0-2); Eosinophils Percent Auto 1.6 % (2-4); Hemoglobin 13.4 g/dL (12.0-16.0); Lymphocytes Percent Auto 29.6 % (25-40); Mean Corpuscular HGB Conc 34.4 % (30-36); Mean Corpuscular Hemoglobin 33.2 PG (26-34); Mean Corpuscular Volume 96.4 fL (80-100); Monocytes Percent Auto 9.8 % (3-14); Neutrophils Absolute Auto 4300 /uL (3000-5900); Neutrophils Percent Auto 58.4 % (50-75); Platelet Count 206 X10^3/uL (150-400); Red Blood Cell Count 4.05 X10^6/uL (4.0-5.2); Red Cell Distribution Width 13.9 % (11.6-14.8); White Blood Cell Count 7.4 X10^3/uL (4.5-11.0)
[2017-11-06 14:56] LABS: Prothrombin Time 10.5 SECONDS (10.1-12.7)
[2017-11-06 14:59] LABS: PTT Partial Thromboplastin Tim 28 SECONDS (26.4-36.2)
== END ==
PROVIDERS: PCP Family Medicine; Visit Provider Family Medicine
DX: R23.8 Other skin changes (principal)
CPT/HCPCS: 85025; 85610; 85730

== ENCOUNTER → 2018-02-12 13:45 | Outpatient (CLI) | payer OTHER, SELFPAY | PROVIDERS: PCP Family Medicine; Visit Provider Family Medicine | DX: Z13.820 Encounter for screening for osteoporosis (principal); M81.0 Age-related osteoporosis without current pathological fracture; Z78.0 Asymptomatic menopausal state | CPT/HCPCS: 77080 ==

== ENCOUNTER → 2018-04-24 13:52 | Oncology outpatient (ONC) | payer OTHER, SELFPAY ==
[2018-04-24] MEDS: ZOLEDRONIC ACID 5 MG in SODIUM CHLORIDE 0.9% 100 ML 318.75 ML IV (15:35)
[2018-04-24 16:48] VITALS: BP 138/79; PULSE 63; RESP 16; TEMP 36.5; O2SAT 97
== END ==
LOC: ONC 13:56
PROVIDERS: PCP Family Medicine; Visit Provider Family Medicine
DX: M81.0 Age-related osteoporosis without current pathological fracture (principal)
CPT/HCPCS: 96365; 96374; J3489

== ENCOUNTER → 2018-09-29 12:21 | Outpatient (CLI) | payer OTHER, SELFPAY ==
[2018-09-29 12:53] LABS: Add Manual Diff / Slide Review NO; Basophils Absolute Auto 0 /uL (0-100); Basophils Percent Auto 0.5 % (0-2); Eosinophils Absolute Auto 100 /uL (0-450); Eosinophils Percent Auto 2.2 % (2-4); Hematocrit 42.6 % (36-46); Hemoglobin 14.3 g/dL (12.0-16.0); Lymphocytes Absolute Auto 1600 /uL (1100-4500); Lymphocytes Percent Auto 26.2 % (25-40); Mean Corpuscular HGB Conc 33.6 % (30-36); Mean Corpuscular Hemoglobin 32.6 PG (26-34); Monocytes Absolute Auto 700 /uL (0-900); Monocytes Percent Auto 11.2 % (3-14); Neutrophils Absolute Auto 3600 /uL (1500-7000); Neutrophils Percent Auto 59.9 % (50-75); Platelet Count 218 X10^3/uL (150-400); Red Blood Cell Count 4.39 X10^6/uL (4.0-5.2); Red Cell Distribution Width 13.2 % (11.6-14.8); White Blood Cell Count 5.9 X10^3/uL (4.5-11.0)
[2018-09-29 13:00] LABS: BUN Creatinine Ratio 24.3 (6-22); Blood Urea Nitrogen 17 mg/dL (7-17); Calcium 9.7 mg/dL (8.4-10.2); Carbon Dioxide 32 mmol/L (22-32); Chloride 103 mmol/L (98-107); Estimated Glomerular Filt Rate > 60.0 mL/min (>60); Glucose 97 mg/dL (80-110); HEMOLYSIS 16 (0-50); Potassium 4.2 mmol/L (3.4-5.1); Sodium 142 mmol/L (137-145)
[2018-09-29 14:28] LABS: Thyroid Stimulating Hormone 1.32 uIU/mL (0.47-4.68)
== END ==
PROVIDERS: PCP Family Medicine; Visit Provider Family Medicine
DX: I10 Essential (primary) hypertension (principal); R61 Generalized hyperhidrosis
CPT/HCPCS: 36415; 80048; 84443; 85025

== ENCOUNTER → 2018-10-14 14:12 | Outpatient (CLI) | payer OTHER, SELFPAY | PROVIDERS: PCP Family Medicine; Visit Provider Physician Assistant | DX: L08.9 Local infection of the skin and subcutaneous tissue, unspecified (principal) | CPT/HCPCS: 87070; 87075; 87077; 87186; 87205 ==

== ENCOUNTER → 2018-11-04 12:42 | Outpatient (CLI) | payer OTHER, SELFPAY ==
[2018-11-04 13:24] LABS: Cholesterol 217 mg/dL (140-199); HDL Cholesterol 66 mg/dL (40-60); LDL Cholesterol Calculated 124 mg/dL (<100); Triglycerides 137 mg/dL (35-150)
[2018-11-04 13:28] LABS: B Type Natriuretic Peptide < 100 (<100)
== END ==
PROVIDERS: PCP Family Medicine; Visit Provider Registered Nurse
DX: I10 Essential (primary) hypertension (principal); R06.02 Shortness of breath
CPT/HCPCS: 36415; 80061; 83880

== ENCOUNTER → 2018-11-18 15:48 | Outpatient (CLI) | payer OTHER, SELFPAY ==
--- NOTE | 2018-11-18 15:49 | DI.ECHO.S_ITS ---
[facility] +---------+ : : [address] : : : : [place], : : : : [place] [address] : : : : Phone: [phone] + [facility] Echocardiogram Report + + :Name: OLY HERNADEZ Deana Study Date: 11/18/2018 Height: 64 in : :[facility] Weight: 230 lb : : Gender: Female BSA: 2.1 m2 : :: 1940 Age: 78 yrs BP: 117/60 mmHg: :Reason For Study: sob : : Performed By: Daniela Acosta : :Referring: SAVANAH LONDONO : + + Interpretation Summary The left ventricle is normal in size, wall thickness, and systolic function without any focal wall motion abnormalities. The ejection fraction is estimated to be 55-60%. Diastolic parameters suggest a relaxation abnormality of the left ventricle, consistent with probable normal filling pressures. The right ventricle is normal in size and function. The right ventricular systolic pressure is estimated to be at least 27 mmHg based on an estimated right atrial pressure of 8 mm Hg. The left atrium is mildly dilated. The right atrium is mildly dilated. There is mild mitral regurgitation. There is no other significant valvular heart disease. The ascending aorta is at the upper limits of normal in size. No significant changes since prior study on 01/09/2017. Procedure: A two-dimensional transthoracic echocardiogram with color flow and Doppler was performed. The study quality was technically adequate. Comparison is made with the echocardiogram of 01/09/17. The patient was in normal sinus rhythm during the exam. Left Ventricle: The left ventricle is normal in size, wall thickness, and systolic function without any focal wall motion abnormalities. The ejection fraction is estimated to be 55-60%. Diastolic parameters suggest a relaxation abnormality of the left ventricle, consistent with probable normal filling pressures. Right Ventricle: The right ventricle is normal in size and function. Atria: The left atrium is mildly dilated. The right atrium is mildly dilated. The interatrial septum is intact with no evidence for an atrial septal defect. Mitral Valve: The mitral valve leaflets appear borderline thickened, but open well. There is mild mitral annular calcification. There is mild mitral regurgitation. Aortic Valve: The aortic valve is normal in structure and function. There is trace aortic regurgitation. Tricuspid Valve: The tricuspid valve is normal. There is trace tricuspid regurgitation. The right ventricular systolic pressure is estimated to be at least 27 mmHg based on an estimated right atrial pressure of 8 mm Hg. Pulmonic Valve: The pulmonic valve is not well seen, but is grossly normal. There is trace pulmonic regurgitation. There is no other significant valvular heart disease. Great Vessels: The aortic root is normal size. The ascending aorta is at the upper limits of normal in size. The aortic arch is at the upper limits of normal in size. The pulmonary is not well visualized. The IVC is dilated (diameter is greater than 2.1 cm) yet it collapses greater than 50% with a sniff. This suggests a right atrial pressure of 8 mm Hg. Pericardium/ Pleura There is no pericardial effusion. There is no pleural effusion. MMode/2D Measurements & Calculations LVIDd: 4.9 cm AoV Openin.8 cm LVIDs: 3.3 cm LVOT diam: 2.2 cm IVSd: 0.97 cm Ao root diam: 3.4 cm LVPWd: 0.92 cm asc Aorta Diam: 3.5 cm LV mark. diameter/BSA (cm/m^2): 2.4 Ao Arch Diam (Prox Trans): 3.2 cm LV sys. diameter/BSA (cm/m^2): 1.6 FS: 33.3 % EPSS: 0.51 cm LA A2 area: 23.9 cm2 RA long axis: 5.1 cm LA A4 area: 24.4 cm2 RA area: 19.3 cm2 LA length (vol): 6.4 cm RA vol: 63.0 ml LA vol: 77.7 ml RA : 30.4 ml/m2 LA vol index: 37.4 ml/m2 RVD1 (basal): 4.2 cm IVC diam: 2.2 cm RVD2 (mid): 2.6 cm TAPSE: 2.6 cm Doppler Measurements & Calculations Ao V2 max: 147.2 cm/sec LVOT Max Erich: 77.9 cm/sec Ao V2 mean: 99.4 cm/sec LV V1 max P.4 mmHg Ao V2 VTI: 30.9 cm LV V1 VTI: 17.7 cm Ao max P.7 mmHg Ao mean P.5 mmHg SANTO(I,D): 2.1 cm2 MV E max erich: 68.2 cm/sec SANTO(V,D): 1.9 cm2 MV A max erich: 79.3 cm/sec SANTO indexed to BSA (cm^2/m^2): 1.0 MV E/A: 0.86 sev ratio: 0.57 Med Peak E' Erich: 7.8 cm/sec E/E' med: 8.8 Lat Peak E' Erich: 10.7 cm/sec E/E' lat: 6.4 E/e' average: 7.6 MV dec time: 0.22 sec TR max erich: 218.1 cm/sec TR max P.0 mmHg PA V2 max: 65.9 cm/sec SV(LVOT): 64.3 ml PA V2 mean: 50.3 cm/sec PA mean P.1 mmHg PA Accel Time: 0.15 sec Reading Physician:05:38 PM
== END ==
PROVIDERS: PCP Family Medicine; Visit Provider Registered Nurse
DX: I34.0 Nonrheumatic mitral (valve) insufficiency (principal); R06.02 Shortness of breath
CPT/HCPCS: 93306

== ENCOUNTER → 2019-01-01 12:28 | Outpatient (CLI) | payer OTHER, SELFPAY ==
--- NOTE | 2019-01-01 12:30 | DI.RAD.S_ITS ---
PROCEDURE: XR HIP W PEL IF DONE RT 2V INDICATIONS: right lateral hip and gluteal pain TECHNIQUE: AP pelvis with lateral view(s) of the right hip(s). COMPARISON: None. FINDINGS: Bones: No fractures or dislocations. Pelvic ring appears intact. No suspicious bony lesions. Mild joint narrowing with periarticular osteophyte formation of the right and left hip joint. Degenerative disc and facet disease involves the inferior lumbar spine. Soft tissues: The visualized bowel gas pattern is normal. No suspicious soft tissue calcifications. IMPRESSION: Mild symmetric hip joint degeneration. Dictated by: Nagi HOLM Interpreted: Pia Rm MD on 01/01/2019 at 16:27 Approved by: Pia Rm M.D. on 01/01/2019 at 16:50
--- NOTE | 2019-01-01 12:30 | DI.RAD.S_ITS ---
PROCEDURE: XR KNEE RT 3V INDICATIONS: bilateral knee pain TECHNIQUE: 3 views of the knee were acquired. COMPARISON: None. FINDINGS: Bones: No fractures or dislocations. No suspicious bony lesions. Degenerative spurring. Minimal medial joint space narrowing Soft tissues: No joint effusion. No suspicious soft tissue calcifications. IMPRESSION: Mild right knee joint degeneration. Dictated by: Lorne Leo M.D. on 01/01/2019 at 16:34 Approved by: Lorne Leo M.D. on 01/01/2019 at 16:35
--- NOTE | 2019-01-01 12:30 | DI.RAD.S_ITS ---
PROCEDURE: XR KNEE LT 3V INDICATIONS: bilateral knee pain TECHNIQUE: 3 views of the knee were acquired. COMPARISON: None. FINDINGS: Bones: No fractures or dislocations. No suspicious bony lesions. Moderate medial joint space narrowing. Scattered degenerative subchondral sclerosis and spurring. Soft tissues: Trace joint effusion. No suspicious soft tissue calcifications. IMPRESSION: Moderate left knee joint degeneration. Dictated by: Lorne Leo M.D. on 01/01/2019 at 15:59 Approved by: Lorne Leo M.D. on 01/01/2019 at 16:01
== END ==
PROVIDERS: PCP Family Medicine; Visit Provider Family Medicine
DX: M25.561 Pain in right knee (principal); M25.562 Pain in left knee; M25.551 Pain in right hip; M17.0 Bilateral primary osteoarthritis of knee; M16.0 Bilateral primary osteoarthritis of hip; G57.01 Lesion of sciatic nerve, right lower limb; M51.36 Other intervertebral disc degeneration, lumbar region
CPT/HCPCS: 73502; 73562

== ENCOUNTER 2019-04-28 13:45 | Outpatient (RCR) | payer OTHER, SELFPAY ==
--- NOTE | 2019-01-19 16:22 | PT.OIE ---
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) Pain in left knee (01/19/19) Trochanteric bursitis, right hip (01/19/19) Peroneal tendinitis, left leg (01/19/19) Past Medical History (Last Reviewed 01/13/19 @ 19:45 by Tao Abbasi MD) Anxiety (Chronic 02/01/16) Bursitis, shoulder (Chronic) Cataract (Resolved 2014) Chicken pox (Resolved) Chronic headaches (Chronic) Chronic interstitial cystitis (Chronic 02/01/16) Depression (Chronic) Depression (Chronic) Eczema (Chronic 1989) Edema (Chronic 02/01/16) Essential hypertension (Chronic 02/01/16) Fractures (Resolved 2004) Gastroesophageal reflux disease without esophagitis (Chronic 1999) Hearing loss (Chronic 2012) Hemorrhoids (Chronic 1989) History of heavy periods (Resolved) Insomnia (Chronic 02/01/16) Measles (Resolved 1963) Migraines (Chronic) Mumps (Resolved) Osteopenia (Chronic 2015) Rubella (Resolved 1963) Skin cancer (Resolved) Tinnitus (Chronic 2012) Urinary incontinence (Chronic 2011) Past Surgical History (Last Reviewed 01/13/19 @ 19:45 by Tao Abbasi MD) Anesthesia (Resolved) History of arm fracture (Resolved ~1942) History of cataract removal with insertion of prosthetic lens (Resolved 01/2016) History of tonsillectomy (Resolved ~1945) Visit Care Team Role Provider Type Rebecca Webber MD Attending Provider Physician Primary Care Provider Specialty: Family Practice Address: [address] [place] [address], [facility] Email: [email or web address] Physical Therapy Initial Evaluation PT-OP-A Visit Information Start: 01/19/19 07:30 Freq: Status: Active Protocol: Document 01/19/19 09:00 AMB (Rec: 01/19/19 16:13 AMB [email or web address]) Out-Patient Physical Therapy Visit Information Visit Information Visit Type Initial Evaluation Visit Start Time 09:00 Visit Stop Time 09:45 Total Visit Minutes 45 Visit Number 1 PT-OP-B Current Condition Start: 01/19/19 07:30 Freq: Status: Active Protocol: Document 01/19/19 09:00 AMB (Rec: 01/19/19 16:13 AMB [email or web address]) Current Condition History of Current Condition Onset Date last few months Current Complaints R back pain, L knee pain, L ankle pain History of Current Condition [place] presents with multiple pain complaints. She states that right now her sciatica is not radiating down the R leg, but that it can, generally when she has been up and moving around a bit. She also reports L medial knee pain and L lateral ankle pain. She has had two falls onto her knees onto her knees in the last 4-5 months. Going down stairs and vacuuming are big problems. Prior Treatments and Tests X-rays: mild R hip and knee degeneration, moderate L knee degeneration. 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 PT-OP-C Subjective Start: 01/19/19 07:30 Freq: Status: Active Protocol: Document 01/19/19 09:00 AMB (Rec: 01/19/19 16:13 AMB [email or web address]) Patient Questionnaires Lower Extremity Functional Scale LEFS Score 38 LEFS Impairment 40 to 59% Impaired (Score 32- 47) PT-OP-F Manual Assessment Start: 01/19/19 07:30 Freq: Status: Active Protocol: Document 01/19/19 09:00 AMB (Rec: 01/19/19 16:13 AMB [email or web address]) Manual Assessments Joint Mobility Assessment Joint Mobility Assessment Tightness and pain at tibiofemoral joint on L, hypomobile patella, but no pain with mobilization at patellofemoral joint PT-OP-G Mobility & Gait Start: 01/19/19 07:30 Freq: Status: Active Protocol: Document 01/19/19 09:00 AMB (Rec: 01/19/19 16:21 AMB [email or web address]) OP Gait Assessment Comments Gait Comments WBOS, excessive lateral weightbearing through the foot , lack of trunk rotation, increased lateral deviation PT-OP-J Posture/Palpation/Skin Start: 01/19/19 07:30 Freq: Status: Active Protocol: Document 01/19/19 09:00 AMB (Rec: 01/19/19 16:21 AMB [email or web address]) Palpation Assessment Location One Palpation Location L ankle Palpation Details tenderness at fibularis longus insertion, and at achilles insertion into heel. Swelling in feet makes palpation somewhat challenging. PT-OP-K Range of Motion Start: 01/19/19 07:30 Freq: Status: Active Protocol: Document 01/19/19 09:00 AMB (Rec: 01/19/19 16:21 AMB [email or web address]) Knee Goniometric Range of Motion Knee Right Flexion Active (degrees) 120 Extension Active (degrees) 0 Left Flexion Active (degrees) 112 Extension Active (degrees) 0 PT-OP-M Strength Start: 01/19/19 07:30 Freq: Status: Active Protocol: Document 01/19/19 09:00 AMB (Rec: 01/19/19 16:21 AMB [email or web address]) Hip Strength Hip Manual Muscle Testing Right Flexion (L2) 4 Good Extension (S1) 4 Good Abduction 4- Good- Left Flexion (L2) 4 Good Extension (S1) 4- Good- Abduction 3+ Fair+ Knee Strength Knee Manual Muscle Testing Right Flexion (S2) 4 Good Extension (L3) 4+ Good+ Left Flexion (S2) 4 Good Extension (L3) 4 Good Ankle/Foot Strength Ankle and Foot Manual Muscle Testing Right Dorsiflexion (L4) 4+ Good+ Plantarflexion (S1) 3+ Fair+ Inversion 4+ Good+ Eversion (S1) 4+ Good+ Left Dorsiflexion (L4) 4- Good- Plantarflexion (S1) 3+ Fair+ Inversion 3 Fair Eversion (S1) 3 Fair PT-OP-Q Treatments Start: 01/19/19 07:30 Freq: Status: Active Protocol: Document 01/19/19 09:00 AMB (Rec: 01/19/19 16:21 AMB [email or web address]) Therapeutic Exercises Sitting Exercises 2 Sitting Exercise Name hip abduction Resistance #3 t band Reps/Minutes 2x10 1 Sitting Exercise Name ankle eversion, plantarflexion Side left Resistance #2 t band Reps/Minutes 2x10 PT-OP-T Assessment and Plan Start: 01/19/19 07:30 Freq: Status: Active Protocol: Document 01/19/19 09:00 AMB (Rec: 01/19/19 16:13 AMB [email or web address]) Physical Therapy Assessment Rehab Potential Rehabilitation Potential Good Evaluation Complexity Number of Personal Factors/Comorbidities 1-2 Number of Body Systems Impaired 4 or More Clinical Presentation at Evaluation Evolving Impairments Impairments Activity Tolerance,Edema, Functional Activities,Gait, Pain,ROM,Strength Goals 2 Impairment standing/ walking Short Term Goal (STG) [place] will stand to cook fish eggs for 30 minutes without increasing her baseline pain. STG Duration 4 weeks Mcc Goal (LTG) [place] will walk for 20 minutes at a time without an increase in baseline pain. LTG Duration 8 weeks 1 Impairment stairs Short Term Goal (STG) [place] will ascend and descend 4 stairs with an alternating gait pattern. STG Duration 4 weeks Mcc Goal (LTG) [place] will descend 4 stairs without an increase in baseline pain. LTG Duration 8 weeks Assessment Summary Assessment [place] is noticing L knee and L ankle pain in addition to her sciatica that is limiting her mobility, especially stairs and cleaning the house. She attends with weakness bilaterally in her hips, stiffness in her L knee and weakness in her L ankle. She will benefit from PT to improve her LE and low back stability. Physical Therapy Plan Frequency and Duration Frequency of Treatment 2x/Week Duration of Treatment 8 weeks Plan of Care Start Date 01/19/19 Plan of Care End Date 03/16/19 Therapeutic Interventions Therapeutic Interventions Balance Training,Gait Training ,Home Exercise Program,Joint Mobilizations,Manual Therapy, Neuromuscular Re-education, Self-Care/Home Management, Therapeutic Activities, Therapeutic Exercises Modalities Cold Pack/Ice Massage,Electric Stimulation,Ultrasound Next Visit Focus/Plan Next Note Type Treatment Note
--- NOTE | 2019-01-26 11:41 | PT.OTN ---
Current Diagnoses Lesion of sciatic nerve, right lower limb (01/26/19) Pain in left knee (01/26/19) Trochanteric bursitis, right hip (01/26/19) Peroneal tendinitis, left leg (01/26/19) Physical Therapy Treatment Note PT-OP-A Visit Information Start: 01/19/19 07:30 Freq: Status: Active Protocol: Document 01/26/19 10:30 AMB (Rec: 01/26/19 13:01 AMB [email or web address]) Out-Patient Physical Therapy Visit Information Visit Information Visit Type Treatment Note Visit Start Time 10:30 Visit Stop Time 11:15 Total Visit Minutes 45 Visit Number 2 PT-OP-B Current Condition Start: 01/19/19 07:30 Freq: Status: Active Protocol: Document 01/19/19 09:00 AMB (Rec: 01/19/19 16:13 AMB [email or web address]) Current Condition History of Current Condition Onset Date last few months Current Complaints R back pain, L knee pain, L ankle pain History of Current Condition [place] presents with multiple pain complaints. She states that right now her sciatica is not radiating down the R leg, but that it can, generally when she has been up and moving around a bit. She also reports L medial knee pain and L lateral ankle pain. She has had two falls onto her knees onto her knees in the last 4-5 months. Going down stairs and vacuuming are big problems. Prior Treatments and Tests X-rays: mild R hip and knee degeneration, moderate L knee degeneration. 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 PT-OP-C Subjective Start: 01/19/19 07:30 Freq: Status: Active Protocol: Document 01/26/19 10:30 AMB (Rec: 01/26/19 13:01 AMB [email or web address]) OP-PT Subjective Patient Comments Patient Comments Pt is feeling the ankle the most today. Limping into the office. PT-OP-F Manual Assessment Start: 01/19/19 07:30 Freq: Status: Active Protocol: Document 01/19/19 09:00 AMB (Rec: 01/19/19 16:13 AMB [email or web address]) Manual Assessments Joint Mobility Assessment Joint Mobility Assessment Tightness and pain at tibiofemoral joint on L, hypomobile patella, but no pain with mobilization at patellofemoral joint PT-OP-G Mobility & Gait Start: 01/19/19 07:30 Freq: Status: Active Protocol: Document 01/19/19 09:00 AMB (Rec: 01/19/19 16:21 AMB [email or web address]) OP Gait Assessment Comments Gait Comments WBOS, excessive lateral weightbearing through the foot , lack of trunk rotation, increased lateral deviation PT-OP-J Posture/Palpation/Skin Start: 01/19/19 07:30 Freq: Status: Active Protocol: Document 01/19/19 09:00 AMB (Rec: 01/19/19 16:21 AMB [email or web address]) Palpation Assessment Location One Palpation Location L ankle Palpation Details tenderness at fibularis longus insertion, and at achilles insertion into heel. Swelling in feet makes palpation somewhat challenging. PT-OP-K Range of Motion Start: 01/19/19 07:30 Freq: Status: Active Protocol: Document 01/19/19 09:00 AMB (Rec: 01/19/19 16:21 AMB [email or web address]) Knee Goniometric Range of Motion Knee Right Flexion Active (degrees) 120 Extension Active (degrees) 0 Left Flexion Active (degrees) 112 Extension Active (degrees) 0 PT-OP-M Strength Start: 01/19/19 07:30 Freq: Status: Active Protocol: Document 01/19/19 09:00 AMB (Rec: 01/19/19 16:21 AMB [email or web address]) Hip Strength Hip Manual Muscle Testing Right Flexion (L2) 4 Good Extension (S1) 4 Good Abduction 4- Good- Left Flexion (L2) 4 Good Extension (S1) 4- Good- Abduction 3+ Fair+ Knee Strength Knee Manual Muscle Testing Right Flexion (S2) 4 Good Extension (L3) 4+ Good+ Left Flexion (S2) 4 Good Extension (L3) 4 Good Ankle/Foot Strength Ankle and Foot Manual Muscle Testing Right Dorsiflexion (L4) 4+ Good+ Plantarflexion (S1) 3+ Fair+ Inversion 4+ Good+ Eversion (S1) 4+ Good+ Left Dorsiflexion (L4) 4- Good- Plantarflexion (S1) 3+ Fair+ Inversion 3 Fair Eversion (S1) 3 Fair PT-OP-Q Treatments Start: 01/19/19 07:30 Freq: Status: Active Protocol: Document 01/27/19 10:30 AMB (Rec: 01/27/19 11:41 AMB [email or web address]) Therapeutic Exercises Supine Exercises 1 Supine Exercise Name bridges Reps/Minutes 2x10 Sidelying Exercises 1 Sidelying Exercise Name clamshell Reps/Minutes 2x10 Sitting Exercises 3 Sitting Exercise Name BAPS board Comments ankle circumduction #3 2 Sitting Exercise Name hip abduction Resistance #3 t band Reps/Minutes 2x10 1 Sitting Exercise Name ankle eversion, plantarflexion Side left Resistance #2 t band Reps/Minutes 2x10 Standing Exercises 1 Standing Exercise Name blue foam balance modified tandem Reps/Minutes 30x2 PT-OP-T Assessment and Plan Start: 01/19/19 07:30 Freq: Status: Active Protocol: Document 01/26/19 10:30 AMB (Rec: 01/27/19 07:30 AMB [email or web address]) Physical Therapy Assessment Assessment Summary Assessment [place]'s gait was most affected today by her L ankle. Reviewed HEP and adjusted to avoid knee pain. Physical Therapy Plan Next Visit Focus/Plan Next Note Type Treatment Note Next Visit Plan Balance training for core/ ankle stability, hip/LE core stabilization training, manual therapy as needed for pain relief
--- NOTE | 2019-01-30 10:56 | PT.OTN ---
Current Diagnoses Lesion of sciatic nerve, right lower limb (01/29/19) Pain in left knee (01/29/19) Trochanteric bursitis, right hip (01/29/19) Peroneal tendinitis, left leg (01/29/19) Physical Therapy Treatment Note PT-OP-A Visit Information Start: 01/19/19 07:30 Freq: Status: Active Protocol: Document 01/29/19 11:15 AMB (Rec: 01/30/19 10:56 AMB [email or web address]) Out-Patient Physical Therapy Visit Information Visit Information Visit Type Treatment Note Visit Start Time 11:15 Visit Stop Time 12:00 Total Visit Minutes 45 Visit Number 3 PT-OP-B Current Condition Start: 01/19/19 07:30 Freq: Status: Active Protocol: Document 01/19/19 09:00 AMB (Rec: 01/19/19 16:13 AMB [email or web address]) Current Condition History of Current Condition Onset Date last few months Current Complaints R back pain, L knee pain, L ankle pain History of Current Condition [place] presents with multiple pain complaints. She states that right now her sciatica is not radiating down the R leg, but that it can, generally when she has been up and moving around a bit. She also reports L medial knee pain and L lateral ankle pain. She has had two falls onto her knees onto her knees in the last 4-5 months. Going down stairs and vacuuming are big problems. Prior Treatments and Tests X-rays: mild R hip and knee degeneration, moderate L knee degeneration. 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 PT-OP-C Subjective Start: 01/19/19 07:30 Freq: Status: Active Protocol: Document 01/29/19 11:15 AMB (Rec: 01/30/19 10:56 AMB [email or web address]) OP-PT Subjective Patient Comments Patient Comments Pt continues to have antalgic gait due to pain at lateral/ posterior ankle PT-OP-F Manual Assessment Start: 01/19/19 07:30 Freq: Status: Active Protocol: Document 01/19/19 09:00 AMB (Rec: 01/19/19 16:13 AMB [email or web address]) Manual Assessments Joint Mobility Assessment Joint Mobility Assessment Tightness and pain at tibiofemoral joint on L, hypomobile patella, but no pain with mobilization at patellofemoral joint PT-OP-G Mobility & Gait Start: 01/19/19 07:30 Freq: Status: Active Protocol: Document 01/19/19 09:00 AMB (Rec: 01/19/19 16:21 AMB [email or web address]) OP Gait Assessment Comments Gait Comments WBOS, excessive lateral weightbearing through the foot , lack of trunk rotation, increased lateral deviation PT-OP-J Posture/Palpation/Skin Start: 01/19/19 07:30 Freq: Status: Active Protocol: Document 01/19/19 09:00 AMB (Rec: 01/19/19 16:21 AMB [email or web address]) Palpation Assessment Location One Palpation Location L ankle Palpation Details tenderness at fibularis longus insertion, and at achilles insertion into heel. Swelling in feet makes palpation somewhat challenging. PT-OP-K Range of Motion Start: 01/19/19 07:30 Freq: Status: Active Protocol: Document 01/19/19 09:00 AMB (Rec: 01/19/19 16:21 AMB [email or web address]) Knee Goniometric Range of Motion Knee Right Flexion Active (degrees) 120 Extension Active (degrees) 0 Left Flexion Active (degrees) 112 Extension Active (degrees) 0 PT-OP-M Strength Start: 01/19/19 07:30 Freq: Status: Active Protocol: Document 01/19/19 09:00 AMB (Rec: 01/19/19 16:21 AMB [email or web address]) Hip Strength Hip Manual Muscle Testing Right Flexion (L2) 4 Good Extension (S1) 4 Good Abduction 4- Good- Left Flexion (L2) 4 Good Extension (S1) 4- Good- Abduction 3+ Fair+ Knee Strength Knee Manual Muscle Testing Right Flexion (S2) 4 Good Extension (L3) 4+ Good+ Left Flexion (S2) 4 Good Extension (L3) 4 Good Ankle/Foot Strength Ankle and Foot Manual Muscle Testing Right Dorsiflexion (L4) 4+ Good+ Plantarflexion (S1) 3+ Fair+ Inversion 4+ Good+ Eversion (S1) 4+ Good+ Left Dorsiflexion (L4) 4- Good- Plantarflexion (S1) 3+ Fair+ Inversion 3 Fair Eversion (S1) 3 Fair PT-OP-Q Treatments Start: 01/19/19 07:30 Freq: Status: Active Protocol: Document 01/29/19 11:15 AMB (Rec: 01/30/19 10:56 AMB [email or web address]) Gym Equipment Shuttle Recovery Unilateral Heel Raises Resistance 50 Reps/Time 20 Therapeutic Exercises Sitting Exercises 1 Sitting Exercise Name ankle eversion, inversion, plantarflexion Side left Resistance #2 t band Reps/Minutes 2x10 Standing Exercises 2 Standing Exercise Name calf stretch Reps/Minutes 30x2 1 Standing Exercise Name heel raises Reps/Minutes 5 Comments double leg difficult Manual Therapy Treatment Soft Tissue Mobilization 1 Body Location L ankle Mobilization Type Cross-Friction,Strumming, Sustained Pressure Intensity/Depth Moderate Neuro Re-Education Treatment Balance Activities 1 Details blue foam Comments modified tandem EO/EC PT-OP-T Assessment and Plan Start: 01/19/19 07:30 Freq: Status: Active Protocol: Document 01/29/19 11:15 AMB (Rec: 01/30/19 10:56 AMB [email or web address]) Physical Therapy Assessment Assessment Summary Assessment [place]'s foot pain was better after treatment today, but walking is her major trigger, discussed shoe choice today. Physical Therapy Plan Next Visit Focus/Plan Next Note Type Treatment Note Next Visit Plan Balance training for core/ ankle stability, hip/LE core stabilization training, manual therapy as needed for pain relief
--- NOTE | 2019-02-02 16:00 | PT.OTN ---
Current Diagnoses Lesion of sciatic nerve, right lower limb (02/02/19) Pain in left knee (02/02/19) Trochanteric bursitis, right hip (02/02/19) Peroneal tendinitis, left leg (02/02/19) Physical Therapy Treatment Note PT-OP-A Visit Information Start: 01/19/19 07:30 Freq: Status: Active Protocol: Document 02/02/19 10:30 AMB (Rec: 02/02/19 10:46 AMB [id number]) Out-Patient Physical Therapy Visit Information Visit Information Visit Type Treatment Note Visit Start Time 10:30 Visit Stop Time 11:15 Total Visit Minutes 45 Visit Number 4 PT-OP-B Current Condition Start: 01/19/19 07:30 Freq: Status: Active Protocol: Document 01/19/19 09:00 AMB (Rec: 01/19/19 16:13 AMB [email or web address]) Current Condition History of Current Condition Onset Date last few months Current Complaints R back pain, L knee pain, L ankle pain History of Current Condition [place] presents with multiple pain complaints. She states that right now her sciatica is not radiating down the R leg, but that it can, generally when she has been up and moving around a bit. She also reports L medial knee pain and L lateral ankle pain. She has had two falls onto her knees onto her knees in the last 4-5 months. Going down stairs and vacuuming are big problems. Prior Treatments and Tests X-rays: mild R hip and knee degeneration, moderate L knee degeneration. 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 PT-OP-C Subjective Start: 01/19/19 07:30 Freq: Status: Active Protocol: Document 02/02/19 10:30 AMB (Rec: 02/02/19 10:46 AMB [email or web address]) OP-PT Subjective Patient Comments Patient Comments Pt is wearing athletic shoes and noted improved pain after last visit and with these shoes. PT-OP-F Manual Assessment Start: 01/19/19 07:30 Freq: Status: Active Protocol: Document 01/19/19 09:00 AMB (Rec: 01/19/19 16:13 AMB [email or web address]) Manual Assessments Joint Mobility Assessment Joint Mobility Assessment Tightness and pain at tibiofemoral joint on L, hypomobile patella, but no pain with mobilization at patellofemoral joint PT-OP-G Mobility & Gait Start: 01/19/19 07:30 Freq: Status: Active Protocol: Document 01/19/19 09:00 AMB (Rec: 01/19/19 16:21 AMB [email or web address]) OP Gait Assessment Comments Gait Comments WBOS, excessive lateral weightbearing through the foot , lack of trunk rotation, increased lateral deviation PT-OP-J Posture/Palpation/Skin Start: 01/19/19 07:30 Freq: Status: Active Protocol: Document 01/19/19 09:00 AMB (Rec: 01/19/19 16:21 AMB [email or web address]) Palpation Assessment Location One Palpation Location L ankle Palpation Details tenderness at fibularis longus insertion, and at achilles insertion into heel. Swelling in feet makes palpation somewhat challenging. PT-OP-K Range of Motion Start: 01/19/19 07:30 Freq: Status: Active Protocol: Document 01/19/19 09:00 AMB (Rec: 01/19/19 16:21 AMB [email or web address]) Knee Goniometric Range of Motion Knee Right Flexion Active (degrees) 120 Extension Active (degrees) 0 Left Flexion Active (degrees) 112 Extension Active (degrees) 0 PT-OP-M Strength Start: 01/19/19 07:30 Freq: Status: Active Protocol: Document 01/19/19 09:00 AMB (Rec: 01/19/19 16:21 AMB [email or web address]) Hip Strength Hip Manual Muscle Testing Right Flexion (L2) 4 Good Extension (S1) 4 Good Abduction 4- Good- Left Flexion (L2) 4 Good Extension (S1) 4- Good- Abduction 3+ Fair+ Knee Strength Knee Manual Muscle Testing Right Flexion (S2) 4 Good Extension (L3) 4+ Good+ Left Flexion (S2) 4 Good Extension (L3) 4 Good Ankle/Foot Strength Ankle and Foot Manual Muscle Testing Right Dorsiflexion (L4) 4+ Good+ Plantarflexion (S1) 3+ Fair+ Inversion 4+ Good+ Eversion (S1) 4+ Good+ Left Dorsiflexion (L4) 4- Good- Plantarflexion (S1) 3+ Fair+ Inversion 3 Fair Eversion (S1) 3 Fair PT-OP-Q Treatments Start: 01/19/19 07:30 Freq: Status: Active Protocol: Document 02/02/19 10:30 AMB (Rec: 02/03/19 08:58 AMB [email or web address]) Cardio Equipment Recumbent Elliptical (Biodex) Duration (Minutes) 7 Resistance 2 Gym Equipment Shuttle Recovery Bilateral Squats Resistance 75 Shuttle Recovery Platform Stable Reps/Time 20 Unilateral Heel Raises Resistance 50 Reps/Time 20 Therapeutic Exercises Supine Exercises 1 Supine Exercise Name bridges Reps/Minutes 2x10 Sidelying Exercises 1 Sidelying Exercise Name clamshell Reps/Minutes 2x10 Sitting Exercises 1 Sitting Exercise Name ankle eversion, inversion, plantarflexion Side left Resistance #2 t band Reps/Minutes 2x10 Standing Exercises 2 Standing Exercise Name calf stretch Reps/Minutes 30x2 1 Standing Exercise Name heel raises Reps/Minutes 5 Comments double leg difficult Manual Therapy Treatment Soft Tissue Mobilization 1 Body Location L ankle Mobilization Type Cross-Friction,Strumming, Sustained Pressure Intensity/Depth Moderate Neuro Re-Education Treatment Balance Activities 1 Details blue foam Comments modified tandem EO/EC PT-OP-T Assessment and Plan Start: 01/19/19 07:30 Freq: Status: Active Protocol: Document 02/02/19 10:30 AMB (Rec: 02/02/19 10:55 AMB [id number]) Physical Therapy Assessment Assessment Summary Assessment [place] is tolerating more exercise today, but continues to have antalgic gait. Physical Therapy Plan Next Visit Focus/Plan Next Note Type Treatment Note Next Visit Plan Balance training for core/ ankle stability, hip/LE core stabilization training, manual therapy as needed for pain relief
--- NOTE | 2019-02-05 12:38 | PT.OTN ---
Current Diagnoses Lesion of sciatic nerve, right lower limb (02/05/19) Pain in left knee (02/05/19) Trochanteric bursitis, right hip (02/05/19) Peroneal tendinitis, left leg (02/05/19) Physical Therapy Treatment Note PT-OP-A Visit Information Start: 01/19/19 07:30 Freq: Status: Active Protocol: Document 02/05/19 11:15 AMB (Rec: 02/05/19 11:54 AMB [id number]) Out-Patient Physical Therapy Visit Information Visit Information Visit Type Treatment Note Visit Start Time 10:30 Visit Stop Time 11:15 Total Visit Minutes 45 Visit Number 5 PT-OP-B Current Condition Start: 01/19/19 07:30 Freq: Status: Active Protocol: Document 01/19/19 09:00 AMB (Rec: 01/19/19 16:13 AMB [email or web address]) Current Condition History of Current Condition Onset Date last few months Current Complaints R back pain, L knee pain, L ankle pain History of Current Condition [place] presents with multiple pain complaints. She states that right now her sciatica is not radiating down the R leg, but that it can, generally when she has been up and moving around a bit. She also reports L medial knee pain and L lateral ankle pain. She has had two falls onto her knees onto her knees in the last 4-5 months. Going down stairs and vacuuming are big problems. Prior Treatments and Tests X-rays: mild R hip and knee degeneration, moderate L knee degeneration. 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 PT-OP-C Subjective Start: 01/19/19 07:30 Freq: Status: Active Protocol: Document 02/05/19 11:15 AMB (Rec: 02/05/19 11:54 AMB [id number]) OP-PT Subjective Patient Comments Patient Comments Pt continues to have heel pain that is worse with walking. She feels it is about the same today. PT-OP-F Manual Assessment Start: 01/19/19 07:30 Freq: Status: Active Protocol: Document 01/19/19 09:00 AMB (Rec: 01/19/19 16:13 AMB [email or web address]) Manual Assessments Joint Mobility Assessment Joint Mobility Assessment Tightness and pain at tibiofemoral joint on L, hypomobile patella, but no pain with mobilization at patellofemoral joint PT-OP-G Mobility & Gait Start: 01/19/19 07:30 Freq: Status: Active Protocol: Document 01/19/19 09:00 AMB (Rec: 01/19/19 16:21 AMB [email or web address]) OP Gait Assessment Comments Gait Comments WBOS, excessive lateral weightbearing through the foot , lack of trunk rotation, increased lateral deviation PT-OP-J Posture/Palpation/Skin Start: 01/19/19 07:30 Freq: Status: Active Protocol: Document 01/19/19 09:00 AMB (Rec: 01/19/19 16:21 AMB [email or web address]) Palpation Assessment Location One Palpation Location L ankle Palpation Details tenderness at fibularis longus insertion, and at achilles insertion into heel. Swelling in feet makes palpation somewhat challenging. PT-OP-K Range of Motion Start: 01/19/19 07:30 Freq: Status: Active Protocol: Document 01/19/19 09:00 AMB (Rec: 01/19/19 16:21 AMB [email or web address]) Knee Goniometric Range of Motion Knee Right Flexion Active (degrees) 120 Extension Active (degrees) 0 Left Flexion Active (degrees) 112 Extension Active (degrees) 0 PT-OP-M Strength Start: 01/19/19 07:30 Freq: Status: Active Protocol: Document 01/19/19 09:00 AMB (Rec: 01/19/19 16:21 AMB [email or web address]) Hip Strength Hip Manual Muscle Testing Right Flexion (L2) 4 Good Extension (S1) 4 Good Abduction 4- Good- Left Flexion (L2) 4 Good Extension (S1) 4- Good- Abduction 3+ Fair+ Knee Strength Knee Manual Muscle Testing Right Flexion (S2) 4 Good Extension (L3) 4+ Good+ Left Flexion (S2) 4 Good Extension (L3) 4 Good Ankle/Foot Strength Ankle and Foot Manual Muscle Testing Right Dorsiflexion (L4) 4+ Good+ Plantarflexion (S1) 3+ Fair+ Inversion 4+ Good+ Eversion (S1) 4+ Good+ Left Dorsiflexion (L4) 4- Good- Plantarflexion (S1) 3+ Fair+ Inversion 3 Fair Eversion (S1) 3 Fair PT-OP-Q Treatments Start: 01/19/19 07:30 Freq: Status: Active Protocol: Document 02/05/19 11:15 AMB (Rec: 02/05/19 12:37 AMB [email or web address]) Gym Equipment Shuttle Balance 1 Details BLUE Comments with vc for posture, engaging core, focusing on balance between forefoot and hindfood Therapeutic Exercises Sitting Exercises 1 Sitting Exercise Name ankle eversion, inversion, plantarflexion Side left Resistance #2 t band Reps/Minutes 2x10 Standing Exercises 2 Standing Exercise Name calf stretch Reps/Minutes 30x2 Comments on [employer] Manual Therapy Treatment Soft Tissue Mobilization 1 Body Location L ankle Mobilization Type Cross-Friction,Strumming, Sustained Pressure Intensity/Depth Moderate Comments at achilles tendon and fibularis longus/brevis tendon PT-OP-T Assessment and Plan Start: 01/19/19 07:30 Freq: Status: Active Protocol: Document 02/05/19 11:15 AMB (Rec: 02/05/19 12:37 AMB [email or web address]) Physical Therapy Assessment Assessment Summary Assessment Discussed the possibility of using a SPC to offload the painful leg while it is healing today. Could consider kinesiotape if skin can tolerate it, but since pt is wearing her compression stockings, held off on it for now. Physical Therapy Plan Next Visit Focus/Plan Next Note Type Treatment Note Next Visit Plan Balance training for core/ ankle,manual therapy as needed for pain relief
--- NOTE | 2019-02-08 13:10 | PT.OTN ---
Current Diagnoses Lesion of sciatic nerve, right lower limb (02/08/19) Pain in left knee (02/08/19) Trochanteric bursitis, right hip (02/08/19) Peroneal tendinitis, left leg (02/08/19) Physical Therapy Treatment Note PT-OP-A Visit Information Start: 01/19/19 07:30 Freq: Status: Active Protocol: Document 02/08/19 13:10 SP (Rec: 02/08/19 13:28 SP [email or web address]) Out-Patient Physical Therapy Visit Information Visit Information Visit Type Treatment Note Visit Start Time 12:20 Visit Stop Time 13:05 Total Visit Minutes 45 Visit Number 5 PT-OP-B Current Condition Start: 01/19/19 07:30 Freq: Status: Active Protocol: Document 01/19/19 09:00 AMB (Rec: 01/19/19 16:13 AMB [email or web address]) Current Condition History of Current Condition Onset Date last few months Current Complaints R back pain, L knee pain, L ankle pain History of Current Condition [place] presents with multiple pain complaints. She states that right now her sciatica is not radiating down the R leg, but that it can, generally when she has been up and moving around a bit. She also reports L medial knee pain and L lateral ankle pain. She has had two falls onto her knees onto her knees in the last 4-5 months. Going down stairs and vacuuming are big problems. Prior Treatments and Tests X-rays: mild R hip and knee degeneration, moderate L knee degeneration. 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 PT-OP-C Subjective Start: 01/19/19 07:30 Freq: Status: Active Protocol: Document 02/08/19 13:10 SP (Rec: 02/08/19 13:28 SP [email or web address]) OP-PT Subjective Patient Comments Patient Comments Pt arrived with antalgic gait with lateral leaning. She said her pain isn't as band today over lateral L ankle, limping less but still needs to a cart for support when at the store. PT-OP-F Manual Assessment Start: 01/19/19 07:30 Freq: Status: Active Protocol: Document 01/19/19 09:00 AMB (Rec: 01/19/19 16:13 AMB [email or web address]) Manual Assessments Joint Mobility Assessment Joint Mobility Assessment Tightness and pain at tibiofemoral joint on L, hypomobile patella, but no pain with mobilization at patellofemoral joint PT-OP-G Mobility & Gait Start: 01/19/19 07:30 Freq: Status: Active Protocol: Document 01/19/19 09:00 AMB (Rec: 01/19/19 16:21 AMB [email or web address]) OP Gait Assessment Comments Gait Comments WBOS, excessive lateral weightbearing through the foot , lack of trunk rotation, increased lateral deviation PT-OP-J Posture/Palpation/Skin Start: 01/19/19 07:30 Freq: Status: Active Protocol: Document 01/19/19 09:00 AMB (Rec: 01/19/19 16:21 AMB [email or web address]) Palpation Assessment Location One Palpation Location L ankle Palpation Details tenderness at fibularis longus insertion, and at achilles insertion into heel. Swelling in feet makes palpation somewhat challenging. PT-OP-K Range of Motion Start: 01/19/19 07:30 Freq: Status: Active Protocol: Document 01/19/19 09:00 AMB (Rec: 01/19/19 16:21 AMB [email or web address]) Knee Goniometric Range of Motion Knee Right Flexion Active (degrees) 120 Extension Active (degrees) 0 Left Flexion Active (degrees) 112 Extension Active (degrees) 0 PT-OP-M Strength Start: 01/19/19 07:30 Freq: Status: Active Protocol: Document 01/19/19 09:00 AMB (Rec: 01/19/19 16:21 AMB [email or web address]) Hip Strength Hip Manual Muscle Testing Right Flexion (L2) 4 Good Extension (S1) 4 Good Abduction 4- Good- Left Flexion (L2) 4 Good Extension (S1) 4- Good- Abduction 3+ Fair+ Knee Strength Knee Manual Muscle Testing Right Flexion (S2) 4 Good Extension (L3) 4+ Good+ Left Flexion (S2) 4 Good Extension (L3) 4 Good Ankle/Foot Strength Ankle and Foot Manual Muscle Testing Right Dorsiflexion (L4) 4+ Good+ Plantarflexion (S1) 3+ Fair+ Inversion 4+ Good+ Eversion (S1) 4+ Good+ Left Dorsiflexion (L4) 4- Good- Plantarflexion (S1) 3+ Fair+ Inversion 3 Fair Eversion (S1) 3 Fair PT-OP-Q Treatments Start: 01/19/19 07:30 Freq: Status: Active Protocol: Document 02/08/19 13:10 SP (Rec: 02/08/19 13:28 SP [email or web address]) Therapeutic Exercises Supine Exercises 5 Supine Exercise Name gastroc/peroneal stretch long sitting Side left Reps/Minutes 30 x3 Sitting Exercises 3 Sitting Exercise Name hip ABD Equipment Used level 2 TB Reps/Minutes 2x10 Comments HEP review 2 Sitting Exercise Name toe scrunches Resistance ROM Reps/Minutes 2x10 1 Comments HEP review Standing Exercises Shuttle balance Standing Exercise Name DL balance with throws/catch into trampoline Resistance blue chain position Equipment Used green weighted ball Reps/Minutes 8 throws into trampoline x3 sets step downs Standing Exercise Name retro and lateral Side bilateral Resistance 4 step (home hard bound book) Reps/Minutes 3x10 Single stance Side bilateral Reps/Minutes 20 sec x2 PT-OP-R Modalities Start: 01/19/19 07:30 Freq: Status: Active Protocol: Document 02/08/19 13:10 SP (Rec: 02/08/19 13:28 SP [email or web address]) Hot Pack/Cold Pack Treatment cold gel pack Location L ankle Patient Position Supine Treatment Duration (minutes) 10 Patient Tolerance Good PT-OP-T Assessment and Plan Start: 01/19/19 07:30 Freq: Status: Active Protocol: Document 02/08/19 13:10 SP (Rec: 02/08/19 13:28 SP [email or web address]) Physical Therapy Assessment Assessment Summary Assessment Pt tolerated ther ex today, reported increased pain 5/10 feels like using the muscles but not to painful. Pt stated towel calf stretch felt good, welcoming to CP at end of tx for pain control decreased to 2/10 over distal L ankle and achilles. Cued for COG over FAMILIA and trunk body spacial awareness during shuttle balance with good form and tolerated increased challenge of throwing/catching ball into trampoline with no adverse affects. Physical Therapy Plan Frequency and Duration Frequency of Treatment 2x/Week Duration of Treatment 8 weeks Plan of Care Start Date 01/19/19 Plan of Care End Date 03/16/19 Therapeutic Interventions Therapeutic Interventions Balance Training,Gait Training ,Home Exercise Program,Joint Mobilizations,Manual Therapy, Neuromuscular Re-education, Patient/Caregiver Education, Soft Tissue Mobilization, Therapeutic Activities, Therapeutic Exercises Modalities Cold Pack/Ice Massage,Electric Stimulation,Ultrasound Next Visit Focus/Plan Next Note Type Treatment Note Next Visit Plan Balance training for core/ ankle,hip/LE core stabilization training, manual therapy as needed for pain relief
--- NOTE | 2019-02-12 12:11 | PT.OTN ---
Current Diagnoses Lesion of sciatic nerve, right lower limb (02/12/19) Pain in left knee (02/12/19) Trochanteric bursitis, right hip (02/12/19) Peroneal tendinitis, left leg (02/12/19) Physical Therapy Treatment Note PT-OP-A Visit Information Start: 01/19/19 07:30 Freq: Status: Active Protocol: Document 02/12/19 11:15 AMB (Rec: 02/12/19 11:32 AMB [email or web address]) Out-Patient Physical Therapy Visit Information Visit Information Visit Type Treatment Note Visit Start Time 11:20 Visit Stop Time 12:00 Total Visit Minutes 40 Visit Number 6 PT-OP-B Current Condition Start: 01/19/19 07:30 Freq: Status: Active Protocol: Document 01/19/19 09:00 AMB (Rec: 01/19/19 16:13 AMB [email or web address]) Current Condition History of Current Condition Onset Date last few months Current Complaints R back pain, L knee pain, L ankle pain History of Current Condition [place] presents with multiple pain complaints. She states that right now her sciatica is not radiating down the R leg, but that it can, generally when she has been up and moving around a bit. She also reports L medial knee pain and L lateral ankle pain. She has had two falls onto her knees onto her knees in the last 4-5 months. Going down stairs and vacuuming are big problems. Prior Treatments and Tests X-rays: mild R hip and knee degeneration, moderate L knee degeneration. 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 PT-OP-C Subjective Start: 01/19/19 07:30 Freq: Status: Active Protocol: Document 02/12/19 11:15 AMB (Rec: 02/12/19 11:32 AMB [email or web address]) OP-PT Subjective Patient Comments Patient Comments Pt reports foot pain is better today, but was painful yesterday. Exercises are going well. PT-OP-F Manual Assessment Start: 01/19/19 07:30 Freq: Status: Active Protocol: Document 01/19/19 09:00 AMB (Rec: 01/19/19 16:13 AMB [email or web address]) Manual Assessments Joint Mobility Assessment Joint Mobility Assessment Tightness and pain at tibiofemoral joint on L, hypomobile patella, but no pain with mobilization at patellofemoral joint PT-OP-G Mobility & Gait Start: 01/19/19 07:30 Freq: Status: Active Protocol: Document 01/19/19 09:00 AMB (Rec: 01/19/19 16:21 AMB [email or web address]) OP Gait Assessment Comments Gait Comments WBOS, excessive lateral weightbearing through the foot , lack of trunk rotation, increased lateral deviation PT-OP-J Posture/Palpation/Skin Start: 01/19/19 07:30 Freq: Status: Active Protocol: Document 01/19/19 09:00 AMB (Rec: 01/19/19 16:21 AMB [email or web address]) Palpation Assessment Location One Palpation Location L ankle Palpation Details tenderness at fibularis longus insertion, and at achilles insertion into heel. Swelling in feet makes palpation somewhat challenging. PT-OP-K Range of Motion Start: 01/19/19 07:30 Freq: Status: Active Protocol: Document 01/19/19 09:00 AMB (Rec: 01/19/19 16:21 AMB [email or web address]) Knee Goniometric Range of Motion Knee Right Flexion Active (degrees) 120 Extension Active (degrees) 0 Left Flexion Active (degrees) 112 Extension Active (degrees) 0 PT-OP-M Strength Start: 01/19/19 07:30 Freq: Status: Active Protocol: Document 01/19/19 09:00 AMB (Rec: 01/19/19 16:21 AMB [email or web address]) Hip Strength Hip Manual Muscle Testing Right Flexion (L2) 4 Good Extension (S1) 4 Good Abduction 4- Good- Left Flexion (L2) 4 Good Extension (S1) 4- Good- Abduction 3+ Fair+ Knee Strength Knee Manual Muscle Testing Right Flexion (S2) 4 Good Extension (L3) 4+ Good+ Left Flexion (S2) 4 Good Extension (L3) 4 Good Ankle/Foot Strength Ankle and Foot Manual Muscle Testing Right Dorsiflexion (L4) 4+ Good+ Plantarflexion (S1) 3+ Fair+ Inversion 4+ Good+ Eversion (S1) 4+ Good+ Left Dorsiflexion (L4) 4- Good- Plantarflexion (S1) 3+ Fair+ Inversion 3 Fair Eversion (S1) 3 Fair PT-OP-Q Treatments Start: 01/19/19 07:30 Freq: Status: Active Protocol: Document 02/12/19 11:15 AMB (Rec: 02/12/19 11:32 AMB [email or web address]) Cardio Equipment Recumbent Stepper (Sci-Fit) Duration (Minutes) 5 Resistance 4 Therapeutic Exercises Supine Exercises 5 Supine Exercise Name gastroc/peroneal stretch long sitting Side left Reps/Minutes 30 x3 Sitting Exercises 3 Sitting Exercise Name hip ABD Equipment Used level 2 TB Reps/Minutes 2x10 Comments HEP review 2 Sitting Exercise Name toe scrunches Resistance ROM Reps/Minutes 2x10 Standing Exercises Single stance Side bilateral Reps/Minutes 20 sec x2 Manual Therapy Treatment Soft Tissue Mobilization 1 Body Location L ankle Mobilization Type Cross-Friction,Strumming, Sustained Pressure Intensity/Depth Moderate Comments at achilles tendon and fibularis longus/brevis tendon PT-OP-R Modalities Start: 01/19/19 07:30 Freq: Status: Active Protocol: Document 02/08/19 13:10 SP (Rec: 02/08/19 13:28 SP [email or web address]) Hot Pack/Cold Pack Treatment cold gel pack Location L ankle Patient Position Supine Treatment Duration (minutes) 10 Patient Tolerance Good PT-OP-T Assessment and Plan Start: 01/19/19 07:30 Freq: Status: Active Protocol: Document 02/12/19 11:15 AMB (Rec: 02/12/19 12:09 AMB [email or web address]) Physical Therapy Assessment Assessment Summary Assessment Lisbet had less pain today, but continues to have weakness with ankle eversion. Good tolerance to icing. single leg stance was difficult due to pain with weightbearing through one leg only. Physical Therapy Plan Next Visit Focus/Plan Next Note Type Treatment Note Next Visit Plan Balance training for core/ ankle,hip/LE core stabilization training, manual therapy as needed for pain relief
--- NOTE | 2019-02-16 16:26 | PT.OTN ---
Current Diagnoses Lesion of sciatic nerve, right lower limb (02/16/19) Pain in left knee (02/16/19) Trochanteric bursitis, right hip (02/16/19) Peroneal tendinitis, left leg (02/16/19) Physical Therapy Treatment Note PT-OP-A Visit Information Start: 01/19/19 07:30 Freq: Status: Active Protocol: Document 02/16/19 10:30 AMB (Rec: 02/16/19 12:37 AMB [id number]) Out-Patient Physical Therapy Visit Information Visit Information Visit Type Treatment Note Visit Start Time 10:30 Visit Stop Time 11:20 Total Visit Minutes 50 Visit Number 7 PT-OP-B Current Condition Start: 01/19/19 07:30 Freq: Status: Active Protocol: Document 01/19/19 09:00 AMB (Rec: 01/19/19 16:13 AMB [email or web address]) Current Condition History of Current Condition Onset Date last few months Current Complaints R back pain, L knee pain, L ankle pain History of Current Condition [place] presents with multiple pain complaints. She states that right now her sciatica is not radiating down the R leg, but that it can, generally when she has been up and moving around a bit. She also reports L medial knee pain and L lateral ankle pain. She has had two falls onto her knees onto her knees in the last 4-5 months. Going down stairs and vacuuming are big problems. Prior Treatments and Tests X-rays: mild R hip and knee degeneration, moderate L knee degeneration. 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 PT-OP-C Subjective Start: 01/19/19 07:30 Freq: Status: Active Protocol: Document 02/16/19 10:30 AMB (Rec: 02/16/19 12:37 AMB [id number]) OP-PT Subjective Patient Comments Patient Comments Pt feels she is limping less today, but continues to notice pain at achilles tendon. PT-OP-F Manual Assessment Start: 01/19/19 07:30 Freq: Status: Active Protocol: Document 01/19/19 09:00 AMB (Rec: 01/19/19 16:13 AMB [email or web address]) Manual Assessments Joint Mobility Assessment Joint Mobility Assessment Tightness and pain at tibiofemoral joint on L, hypomobile patella, but no pain with mobilization at patellofemoral joint PT-OP-G Mobility & Gait Start: 01/19/19 07:30 Freq: Status: Active Protocol: Document 01/19/19 09:00 AMB (Rec: 01/19/19 16:21 AMB [email or web address]) OP Gait Assessment Comments Gait Comments WBOS, excessive lateral weightbearing through the foot , lack of trunk rotation, increased lateral deviation PT-OP-J Posture/Palpation/Skin Start: 01/19/19 07:30 Freq: Status: Active Protocol: Document 01/19/19 09:00 AMB (Rec: 01/19/19 16:21 AMB [email or web address]) Palpation Assessment Location One Palpation Location L ankle Palpation Details tenderness at fibularis longus insertion, and at achilles insertion into heel. Swelling in feet makes palpation somewhat challenging. PT-OP-K Range of Motion Start: 01/19/19 07:30 Freq: Status: Active Protocol: Document 01/19/19 09:00 AMB (Rec: 01/19/19 16:21 AMB [email or web address]) Knee Goniometric Range of Motion Knee Right Flexion Active (degrees) 120 Extension Active (degrees) 0 Left Flexion Active (degrees) 112 Extension Active (degrees) 0 PT-OP-M Strength Start: 01/19/19 07:30 Freq: Status: Active Protocol: Document 01/19/19 09:00 AMB (Rec: 01/19/19 16:21 AMB [email or web address]) Hip Strength Hip Manual Muscle Testing Right Flexion (L2) 4 Good Extension (S1) 4 Good Abduction 4- Good- Left Flexion (L2) 4 Good Extension (S1) 4- Good- Abduction 3+ Fair+ Knee Strength Knee Manual Muscle Testing Right Flexion (S2) 4 Good Extension (L3) 4+ Good+ Left Flexion (S2) 4 Good Extension (L3) 4 Good Ankle/Foot Strength Ankle and Foot Manual Muscle Testing Right Dorsiflexion (L4) 4+ Good+ Plantarflexion (S1) 3+ Fair+ Inversion 4+ Good+ Eversion (S1) 4+ Good+ Left Dorsiflexion (L4) 4- Good- Plantarflexion (S1) 3+ Fair+ Inversion 3 Fair Eversion (S1) 3 Fair PT-OP-Q Treatments Start: 01/19/19 07:30 Freq: Status: Active Protocol: Document 02/16/19 10:30 AMB (Rec: 02/16/19 12:58 AMB [email or web address]) Gym Equipment Shuttle Recovery Bilateral Squats Resistance 75 Shuttle Recovery Platform Stable Reps/Time 20 Unilateral Heel Raises Resistance 50 Reps/Time 20 Therapeutic Exercises Supine Exercises 5 Supine Exercise Name gastroc/peroneal stretch long sitting Side left Reps/Minutes 30 x3 Standing Exercises Single stance Side bilateral Reps/Minutes 20 sec x2 Manual Therapy Treatment Soft Tissue Mobilization 1 Body Location L ankle Mobilization Type Cross-Friction,Strumming, Sustained Pressure Intensity/Depth Moderate Comments at achilles tendon and fibularis longus/brevis tendon PT-OP-R Modalities Start: 01/19/19 07:30 Freq: Status: Active Protocol: Document 02/08/19 13:10 SP (Rec: 02/08/19 13:28 SP [email or web address]) Hot Pack/Cold Pack Treatment cold gel pack Location L ankle Patient Position Supine Treatment Duration (minutes) 10 Patient Tolerance Good PT-OP-T Assessment and Plan Start: 01/19/19 07:30 Freq: Status: Active Protocol: Document 02/16/19 10:30 AMB (Rec: 02/16/19 12:58 AMB [email or web address]) Physical Therapy Assessment Assessment Summary Assessment Encouraged [place] to follow up with her MD with her achilles pain, as her knee pain and back pain which she was originally sent here for are improved, but her ankle pain remains the biggest challenge to her gait at this time. Physical Therapy Plan Next Visit Focus/Plan Next Note Type Treatment Note Next Visit Plan Balance training for core/ ankle,hip/LE core stabilization training, manual therapy as needed for pain relief
--- NOTE | 2019-02-18 15:56 | PT.OTN ---
Current Diagnoses Lesion of sciatic nerve, right lower limb (02/18/19) Pain in left knee (02/18/19) Trochanteric bursitis, right hip (02/18/19) Peroneal tendinitis, left leg (02/18/19) Physical Therapy Treatment Note PT-OP-A Visit Information Start: 01/19/19 07:30 Freq: Status: Active Protocol: Document 02/18/19 10:30 AMB (Rec: 02/18/19 15:54 AMB [email or web address]) Out-Patient Physical Therapy Visit Information Visit Information Visit Type Treatment Note Visit Start Time 10:30 Visit Stop Time 11:20 Total Visit Minutes 50 Visit Number 8 PT-OP-B Current Condition Start: 01/19/19 07:30 Freq: Status: Active Protocol: Document 01/19/19 09:00 AMB (Rec: 01/19/19 16:13 AMB [email or web address]) Current Condition History of Current Condition Onset Date last few months Current Complaints R back pain, L knee pain, L ankle pain History of Current Condition [place] presents with multiple pain complaints. She states that right now her sciatica is not radiating down the R leg, but that it can, generally when she has been up and moving around a bit. She also reports L medial knee pain and L lateral ankle pain. She has had two falls onto her knees onto her knees in the last 4-5 months. Going down stairs and vacuuming are big problems. Prior Treatments and Tests X-rays: mild R hip and knee degeneration, moderate L knee degeneration. 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 PT-OP-C Subjective Start: 01/19/19 07:30 Freq: Status: Active Protocol: Document 02/18/19 10:30 AMB (Rec: 02/18/19 15:54 AMB [email or web address]) OP-PT Subjective Patient Comments Patient Comments Pt is feeling like she is getting better with her ankle . She feels that her ankle and her back are now equally painful. PT-OP-F Manual Assessment Start: 01/19/19 07:30 Freq: Status: Active Protocol: Document 01/19/19 09:00 AMB (Rec: 01/19/19 16:13 AMB [email or web address]) Manual Assessments Joint Mobility Assessment Joint Mobility Assessment Tightness and pain at tibiofemoral joint on L, hypomobile patella, but no pain with mobilization at patellofemoral joint PT-OP-G Mobility & Gait Start: 01/19/19 07:30 Freq: Status: Active Protocol: Document 01/19/19 09:00 AMB (Rec: 01/19/19 16:21 AMB [email or web address]) OP Gait Assessment Comments Gait Comments WBOS, excessive lateral weightbearing through the foot , lack of trunk rotation, increased lateral deviation PT-OP-J Posture/Palpation/Skin Start: 01/19/19 07:30 Freq: Status: Active Protocol: Document 01/19/19 09:00 AMB (Rec: 01/19/19 16:21 AMB [email or web address]) Palpation Assessment Location One Palpation Location L ankle Palpation Details tenderness at fibularis longus insertion, and at achilles insertion into heel. Swelling in feet makes palpation somewhat challenging. PT-OP-K Range of Motion Start: 01/19/19 07:30 Freq: Status: Active Protocol: Document 01/19/19 09:00 AMB (Rec: 01/19/19 16:21 AMB [email or web address]) Knee Goniometric Range of Motion Knee Right Flexion Active (degrees) 120 Extension Active (degrees) 0 Left Flexion Active (degrees) 112 Extension Active (degrees) 0 PT-OP-M Strength Start: 01/19/19 07:30 Freq: Status: Active Protocol: Document 01/19/19 09:00 AMB (Rec: 01/19/19 16:21 AMB [email or web address]) Hip Strength Hip Manual Muscle Testing Right Flexion (L2) 4 Good Extension (S1) 4 Good Abduction 4- Good- Left Flexion (L2) 4 Good Extension (S1) 4- Good- Abduction 3+ Fair+ Knee Strength Knee Manual Muscle Testing Right Flexion (S2) 4 Good Extension (L3) 4+ Good+ Left Flexion (S2) 4 Good Extension (L3) 4 Good Ankle/Foot Strength Ankle and Foot Manual Muscle Testing Right Dorsiflexion (L4) 4+ Good+ Plantarflexion (S1) 3+ Fair+ Inversion 4+ Good+ Eversion (S1) 4+ Good+ Left Dorsiflexion (L4) 4- Good- Plantarflexion (S1) 3+ Fair+ Inversion 3 Fair Eversion (S1) 3 Fair PT-OP-Q Treatments Start: 01/19/19 07:30 Freq: Status: Active Protocol: Document 02/18/19 10:30 AMB (Rec: 02/18/19 15:54 AMB [email or web address]) Gym Equipment Shuttle Recovery Unilateral Heel Raises Resistance 50 Reps/Time 20 Therapeutic Exercises Supine Exercises 5 Supine Exercise Name gastroc/peroneal stretch long sitting Side left Reps/Minutes 30 x3 Sitting Exercises 2 Sitting Exercise Name toe scrunches Resistance ROM Reps/Minutes 2x10 Standing Exercises step downs Standing Exercise Name lateral Side bilateral Resistance 4 step Reps/Minutes 3x10 Manual Therapy Treatment Soft Tissue Mobilization 1 Body Location L ankle Mobilization Type Cross-Friction,Strumming, Sustained Pressure Intensity/Depth Moderate Comments at achilles tendon and fibularis longus/brevis tendon Taping 1 Body Location L achilles Type of Tape Kinesio Tape Comments insatructed to keep on for 2-3 days and then take off with wet washcloth. PT-OP-R Modalities Start: 01/19/19 07:30 Freq: Status: Active Protocol: Document 02/18/19 10:30 AMB (Rec: 02/18/19 15:55 AMB [email or web address]) Hot Pack/Cold Pack Treatment cold gel pack Location L ankle Patient Position Supine Treatment Duration (minutes) 10 Patient Tolerance Good Ultrasound Therapy Treatment Left Ankle Treatment Duration (minutes) 8 Patient Position Supine Coupling Medium Ultrasound Gel Frequency Setting (mHz) 1 Mode Setting Continuous Intensity Setting (w/cm2) 1.2 PT-OP-T Assessment and Plan Start: 01/19/19 07:30 Freq: Status: Active Protocol: Document 02/18/19 10:30 AMB (Rec: 02/18/19 15:54 AMB [email or web address]) Physical Therapy Assessment Assessment Summary Assessment [place] is showing some signs of improvement. She was limping today, but not as signficantly. Continues to have weakness and pain especially with single leg stance. Physical Therapy Plan Next Visit Focus/Plan Next Note Type Treatment Note Next Visit Plan Balance training for core/ ankle,hip/LE core stabilization training, manual therapy as needed for pain relief
--- NOTE | 2019-02-23 10:38 | PT.OTN ---
Current Diagnoses Lesion of sciatic nerve, right lower limb (02/23/19) Pain in left knee (02/23/19) Trochanteric bursitis, right hip (02/23/19) Peroneal tendinitis, left leg (02/23/19) Physical Therapy Treatment Note PT-OP-A Visit Information Start: 01/19/19 07:30 Freq: Status: Active Protocol: Document 02/23/19 10:38 SP (Rec: 02/23/19 11:56 SP [email or web address]) Out-Patient Physical Therapy Visit Information Visit Information Visit Type Treatment Note Visit Start Time 09:46 Visit Stop Time 10:38 Total Visit Minutes 52 Visit Number 9 Number of HEADWAITRESS Visits 1 PT-OP-B Current Condition Start: 01/19/19 07:30 Freq: Status: Active Protocol: Document 01/19/19 09:00 AMB (Rec: 01/19/19 16:13 AMB [email or web address]) Current Condition History of Current Condition Onset Date last few months Current Complaints R back pain, L knee pain, L ankle pain History of Current Condition [place] presents with multiple pain complaints. She states that right now her sciatica is not radiating down the R leg, but that it can, generally when she has been up and moving around a bit. She also reports L medial knee pain and L lateral ankle pain. She has had two falls onto her knees onto her knees in the last 4-5 months. Going down stairs and vacuuming are big problems. Prior Treatments and Tests X-rays: mild R hip and knee degeneration, moderate L knee degeneration. 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 PT-OP-C Subjective Start: 01/19/19 07:30 Freq: Status: Active Protocol: Document 02/23/19 10:38 SP (Rec: 02/23/19 11:56 SP [email or web address]) OP-PT Subjective Patient Comments Patient Comments Pt stated her L achilles and lateral ankle seems to be getting better, does still get pain into L hip, 2/10 pre PT today. Pt stated is compliant with HEP for her ankle at home and the taping to the L achilles helped, lasted 2 days . Would like to reapply today. PT-OP-F Manual Assessment Start: 01/19/19 07:30 Freq: Status: Active Protocol: Document 01/19/19 09:00 AMB (Rec: 01/19/19 16:13 AMB [email or web address]) Manual Assessments Joint Mobility Assessment Joint Mobility Assessment Tightness and pain at tibiofemoral joint on L, hypomobile patella, but no pain with mobilization at patellofemoral joint PT-OP-G Mobility & Gait Start: 01/19/19 07:30 Freq: Status: Active Protocol: Document 01/19/19 09:00 AMB (Rec: 01/19/19 16:21 AMB [email or web address]) OP Gait Assessment Comments Gait Comments WBOS, excessive lateral weightbearing through the foot , lack of trunk rotation, increased lateral deviation PT-OP-J Posture/Palpation/Skin Start: 01/19/19 07:30 Freq: Status: Active Protocol: Document 01/19/19 09:00 AMB (Rec: 01/19/19 16:21 AMB [email or web address]) Palpation Assessment Location One Palpation Location L ankle Palpation Details tenderness at fibularis longus insertion, and at achilles insertion into heel. Swelling in feet makes palpation somewhat challenging. PT-OP-K Range of Motion Start: 01/19/19 07:30 Freq: Status: Active Protocol: Document 01/19/19 09:00 AMB (Rec: 01/19/19 16:21 AMB [email or web address]) Knee Goniometric Range of Motion Knee Right Flexion Active (degrees) 120 Extension Active (degrees) 0 Left Flexion Active (degrees) 112 Extension Active (degrees) 0 PT-OP-M Strength Start: 01/19/19 07:30 Freq: Status: Active Protocol: Document 01/19/19 09:00 AMB (Rec: 01/19/19 16:21 AMB [email or web address]) Hip Strength Hip Manual Muscle Testing Right Flexion (L2) 4 Good Extension (S1) 4 Good Abduction 4- Good- Left Flexion (L2) 4 Good Extension (S1) 4- Good- Abduction 3+ Fair+ Knee Strength Knee Manual Muscle Testing Right Flexion (S2) 4 Good Extension (L3) 4+ Good+ Left Flexion (S2) 4 Good Extension (L3) 4 Good Ankle/Foot Strength Ankle and Foot Manual Muscle Testing Right Dorsiflexion (L4) 4+ Good+ Plantarflexion (S1) 3+ Fair+ Inversion 4+ Good+ Eversion (S1) 4+ Good+ Left Dorsiflexion (L4) 4- Good- Plantarflexion (S1) 3+ Fair+ Inversion 3 Fair Eversion (S1) 3 Fair PT-OP-Q Treatments Start: 01/19/19 07:30 Freq: Status: Active Protocol: Document 02/23/19 10:38 SP (Rec: 02/23/19 11:56 SP [email or web address]) Therapeutic Exercises Sitting Exercises 3 Sitting Exercise Name PF 2x10, EV isometric 3 hold x10 Side left Equipment Used Level 2 TB 2 Sitting Exercise Name toe scrunches Resistance ROM Reps/Minutes 2x10 Standing Exercises step downs Standing Exercise Name lateral Side bilateral Resistance 4 step Reps/Minutes x10 Comments only able to tolerated 10 reps secondary to knee 2 Standing Exercise Name sit to stand Equipment Used 20 raised table Reps/Minutes 3x5 reps Comments arms across chest, no pain, cued glut facilitation into standing Manual Therapy Treatment Soft Tissue Mobilization 1 Body Location L ankle Mobilization Type Cross-Friction,Strumming, Sustained Pressure Intensity/Depth Moderate Comments at achilles tendon and fibularis longus/brevis tendon Taping 1 Body Location L achilles Type of Tape Kinesio Tape Comments instructed to keep on for 2-3 days and then take off with wet washcloth. PT-OP-R Modalities Start: 01/19/19 07:30 Freq: Status: Active Protocol: Document 02/23/19 10:38 SP (Rec: 02/23/19 11:56 SP [email or web address]) Hot Pack/Cold Pack Treatment cryocuff Location L ankle Patient Position Supine Treatment Duration (minutes) 10 Patient Tolerance Good Comments feels good, like this better than cold pack, legs supported over wedge. PT-OP-T Assessment and Plan Start: 01/19/19 07:30 Freq: Status: Active Protocol: Document 02/23/19 10:38 SP (Rec: 02/23/19 11:56 SP [email or web address]) Physical Therapy Assessment Assessment Summary Assessment [place] showing gains in gait with decreased limping today. Tx focused on ankle and leg strengthening, did not tolerate SL step downs but positive results with repeated sit to stands, good recall to L ankle HEP with TB. Continues to have weakness and pain especially with single leg stance. Physical Therapy Plan Frequency and Duration Frequency of Treatment 2x/Week Duration of Treatment 8 weeks Plan of Care Start Date 01/19/19 Plan of Care End Date 03/16/19 Therapeutic Interventions Therapeutic Interventions Balance Training,Gait Training ,Home Exercise Program,Joint Mobilizations,Manual Therapy, Neuromuscular Re-education, Patient/Caregiver Education, Soft Tissue Mobilization, Therapeutic Activities, Therapeutic Exercises Modalities Cold Pack/Ice Massage,Electric Stimulation,Ultrasound Next Visit Focus/Plan Next Note Type Treatment Note Next Visit Plan PRogress in hip/ LE strengthening per POC. Balance training for core/ ankle,hip/LE core stabilization training, manual therapy as needed for pain relief
--- NOTE | 2019-03-02 15:34 | PT.OTN ---
Current Diagnoses Lesion of sciatic nerve, right lower limb (03/02/19) Pain in left knee (03/02/19) Trochanteric bursitis, right hip (03/02/19) Peroneal tendinitis, left leg (03/02/19) Physical Therapy Treatment Note PT-OP-A Visit Information Start: 01/19/19 07:30 Freq: Status: Active Protocol: Document 03/02/19 14:32 SP (Rec: 03/02/19 15:33 SP [id number]) Out-Patient Physical Therapy Visit Information Visit Information Visit Type Treatment Note Visit Start Time 14:32 Visit Stop Time 15:30 Total Visit Minutes 58 Visit Number 10 Number of IGNITER ASSEMBLER Visits 2 PT-OP-B Current Condition Start: 01/19/19 07:30 Freq: Status: Active Protocol: Document 01/19/19 09:00 AMB (Rec: 01/19/19 16:13 AMB [email or web address]) Current Condition History of Current Condition Onset Date last few months Current Complaints R back pain, L knee pain, L ankle pain History of Current Condition [place] presents with multiple pain complaints. She states that right now her sciatica is not radiating down the R leg, but that it can, generally when she has been up and moving around a bit. She also reports L medial knee pain and L lateral ankle pain. She has had two falls onto her knees onto her knees in the last 4-5 months. Going down stairs and vacuuming are big problems. Prior Treatments and Tests X-rays: mild R hip and knee degeneration, moderate L knee degeneration. 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 PT-OP-C Subjective Start: 01/19/19 07:30 Freq: Status: Active Protocol: Document 03/02/19 14:32 SP (Rec: 03/02/19 15:33 SP [id number]) OP-PT Subjective Patient Comments Patient Comments Pt reported ankle doing better , has an infection in 1st toe recently so most pain is there . Pt demonstrated antalgic limping gait upon arrival. Patient Reported Progress Improving PT-OP-F Manual Assessment Start: 01/19/19 07:30 Freq: Status: Active Protocol: Document 01/19/19 09:00 AMB (Rec: 01/19/19 16:13 AMB [email or web address]) Manual Assessments Joint Mobility Assessment Joint Mobility Assessment Tightness and pain at tibiofemoral joint on L, hypomobile patella, but no pain with mobilization at patellofemoral joint PT-OP-G Mobility & Gait Start: 01/19/19 07:30 Freq: Status: Active Protocol: Document 01/19/19 09:00 AMB (Rec: 01/19/19 16:21 AMB [email or web address]) OP Gait Assessment Comments Gait Comments WBOS, excessive lateral weightbearing through the foot , lack of trunk rotation, increased lateral deviation PT-OP-J Posture/Palpation/Skin Start: 01/19/19 07:30 Freq: Status: Active Protocol: Document 01/19/19 09:00 AMB (Rec: 01/19/19 16:21 AMB [email or web address]) Palpation Assessment Location One Palpation Location L ankle Palpation Details tenderness at fibularis longus insertion, and at achilles insertion into heel. Swelling in feet makes palpation somewhat challenging. PT-OP-K Range of Motion Start: 01/19/19 07:30 Freq: Status: Active Protocol: Document 01/19/19 09:00 AMB (Rec: 01/19/19 16:21 AMB [email or web address]) Knee Goniometric Range of Motion Knee Right Flexion Active (degrees) 120 Extension Active (degrees) 0 Left Flexion Active (degrees) 112 Extension Active (degrees) 0 PT-OP-M Strength Start: 01/19/19 07:30 Freq: Status: Active Protocol: Document 01/19/19 09:00 AMB (Rec: 01/19/19 16:21 AMB [email or web address]) Hip Strength Hip Manual Muscle Testing Right Flexion (L2) 4 Good Extension (S1) 4 Good Abduction 4- Good- Left Flexion (L2) 4 Good Extension (S1) 4- Good- Abduction 3+ Fair+ Knee Strength Knee Manual Muscle Testing Right Flexion (S2) 4 Good Extension (L3) 4+ Good+ Left Flexion (S2) 4 Good Extension (L3) 4 Good Ankle/Foot Strength Ankle and Foot Manual Muscle Testing Right Dorsiflexion (L4) 4+ Good+ Plantarflexion (S1) 3+ Fair+ Inversion 4+ Good+ Eversion (S1) 4+ Good+ Left Dorsiflexion (L4) 4- Good- Plantarflexion (S1) 3+ Fair+ Inversion 3 Fair Eversion (S1) 3 Fair PT-OP-Q Treatments Start: 01/19/19 07:30 Freq: Status: Active Protocol: Document 03/02/19 14:32 SP (Rec: 03/02/19 15:33 SP [id number]) Cardio Equipment Recumbent Bicycle Duration (Minutes) 8 Resistance 4 Gym Equipment Shuttle Recovery Double heel raise Resistance 50# Shuttle Recovery Platform Stable Reps/Time 2x5 Bilateral Squats Details slow controlled feet lower platform ankle DF Resistance 125# Shuttle Recovery Platform Stable Reps/Time 2x15 Therapeutic Exercises Sitting Exercises 3 Sitting Exercise Name ankle PF, DF, EV Side left Equipment Used leel 4 band Reps/Minutes 2x10 each Comments patient requested Standing Exercises 1 Standing Exercise Name heel raises Equipment Used at rail Reps/Minutes x10 Other Exercises stepping Other Exercise Name forward, backward, side, boy knees Side bilateral Reps/Minutes 10 ft x3 laps each Manual Therapy Treatment Taping 1 Body Location L achilles Type of Tape Kinesio Tape Comments instructed to keep on for 2-3 days and then take off with wet washcloth. PT-OP-R Modalities Start: 01/19/19 07:30 Freq: Status: Active Protocol: Document 03/02/19 15:30 SP (Rec: 03/02/19 15:34 SP [id number]) Hot Pack/Cold Pack Treatment cryocuff Location L ankle Patient Position Supine Treatment Duration (minutes) 10 Patient Tolerance Good PT-OP-T Assessment and Plan Start: 01/19/19 07:30 Freq: Status: Active Protocol: Document 03/02/19 14:32 SP (Rec: 03/02/19 15:33 SP [email or web address]) Physical Therapy Assessment Goals 2 Impairment standing/ walking Short Term Goal (STG) [place] will stand to cook camp for 30 minutes without increasing her baseline pain. STG Duration 4 weeks Correction Goal (LTG) [place] will walk for 20 minutes at a time without an increase in baseline pain. LTG Duration 8 weeks 1 Impairment stairs Short Term Goal (STG) [place] will ascend and descend 4 stairs with an alternating gait pattern. STG Duration 4 weeks Correction Goal (LTG) [place] will descend 4 stairs without an increase in baseline pain. LTG Duration 8 weeks Assessment Summary Assessment Pt tolerated added standing exercises for proprioception and ankle strengthening, cued for slow pacing each direction to allow for increase stance time, reported no increase pain ankle/foot just !st great toe is painful from infection , I am able to do these things . Limted heel raises standing shuttle recovery secondary to great toe pain tolerable. Pt was welcoming to CP and taping for her ankle end of tx, helped at end of last tx. Pt demonstrated decreased limping when leaving. Physical Therapy Plan Frequency and Duration Frequency of Treatment 2x/Week Duration of Treatment 8 weeks Plan of Care Start Date 01/19/19 Plan of Care End Date 03/16/19 Therapeutic Interventions Therapeutic Interventions Balance Training,Gait Training ,Home Exercise Program,Joint Mobilizations,Manual Therapy, Neuromuscular Re-education, Patient/Caregiver Education, Soft Tissue Mobilization, Therapeutic Activities, Therapeutic Exercises Modalities Cold Pack/Ice Massage,Electric Stimulation,Ultrasound Next Visit Focus/Plan Next Note Type Treatment Note Next Visit Plan Assess new added today: heel raises, side/back/forward high knees stepping. PRogress in hip/ LE strengthening per POC. Balance training for core/ ankle,hip/LE core stabilization training, manual therapy as needed for pain relief
--- NOTE | 2019-03-11 14:55 | PT.OTN ---
Current Diagnoses Lesion of sciatic nerve, right lower limb (03/11/19) Pain in left knee (03/11/19) Trochanteric bursitis, right hip (03/11/19) Peroneal tendinitis, left leg (03/11/19) Physical Therapy Treatment Note PT-OP-A Visit Information Start: 01/19/19 07:30 Freq: Status: Active Protocol: Document 03/11/19 10:30 AMB (Rec: 03/14/19 14:47 AMB [email or web address]) Out-Patient Physical Therapy Visit Information Visit Information Visit Type Progress Note Visit Start Time 10:33 Visit Stop Time 11:30 Total Visit Minutes 57 Visit Number 11 Number of SURETY BOND AGENT Visits 0 PT-OP-B Current Condition Start: 01/19/19 07:30 Freq: Status: Active Protocol: Document 01/19/19 09:00 AMB (Rec: 01/19/19 16:13 AMB [email or web address]) Current Condition History of Current Condition Onset Date last few months Current Complaints R back pain, L knee pain, L ankle pain History of Current Condition [place] presents with multiple pain complaints. She states that right now her sciatica is not radiating down the R leg, but that it can, generally when she has been up and moving around a bit. She also reports L medial knee pain and L lateral ankle pain. She has had two falls onto her knees onto her knees in the last 4-5 months. Going down stairs and vacuuming are big problems. Prior Treatments and Tests X-rays: mild R hip and knee degeneration, moderate L knee degeneration. 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 PT-OP-C Subjective Start: 01/19/19 07:30 Freq: Status: Active Protocol: Document 03/11/19 10:30 AMB (Rec: 03/14/19 14:47 AMB [email or web address]) OP-PT Subjective Patient Comments Patient Comments Pt continues to feel that pain is improving, is concerned about her bilateral LE swelling. PT-OP-F Manual Assessment Start: 01/19/19 07:30 Freq: Status: Active Protocol: Document 01/19/19 09:00 AMB (Rec: 01/19/19 16:13 AMB [email or web address]) Manual Assessments Joint Mobility Assessment Joint Mobility Assessment Tightness and pain at tibiofemoral joint on L, hypomobile patella, but no pain with mobilization at patellofemoral joint PT-OP-G Mobility & Gait Start: 01/19/19 07:30 Freq: Status: Active Protocol: Document 01/19/19 09:00 AMB (Rec: 01/19/19 16:21 AMB [email or web address]) OP Gait Assessment Comments Gait Comments WBOS, excessive lateral weightbearing through the foot , lack of trunk rotation, increased lateral deviation PT-OP-J Posture/Palpation/Skin Start: 01/19/19 07:30 Freq: Status: Active Protocol: Document 01/19/19 09:00 AMB (Rec: 01/19/19 16:21 AMB [email or web address]) Palpation Assessment Location One Palpation Location L ankle Palpation Details tenderness at fibularis longus insertion, and at achilles insertion into heel. Swelling in feet makes palpation somewhat challenging. PT-OP-K Range of Motion Start: 01/19/19 07:30 Freq: Status: Active Protocol: Document 01/19/19 09:00 AMB (Rec: 01/19/19 16:21 AMB [email or web address]) Knee Goniometric Range of Motion Knee Right Flexion Active (degrees) 120 Extension Active (degrees) 0 Left Flexion Active (degrees) 112 Extension Active (degrees) 0 PT-OP-M Strength Start: 01/19/19 07:30 Freq: Status: Active Protocol: Document 01/19/19 09:00 AMB (Rec: 01/19/19 16:21 AMB [email or web address]) Hip Strength Hip Manual Muscle Testing Right Flexion (L2) 4 Good Extension (S1) 4 Good Abduction 4- Good- Left Flexion (L2) 4 Good Extension (S1) 4- Good- Abduction 3+ Fair+ Knee Strength Knee Manual Muscle Testing Right Flexion (S2) 4 Good Extension (L3) 4+ Good+ Left Flexion (S2) 4 Good Extension (L3) 4 Good Ankle/Foot Strength Ankle and Foot Manual Muscle Testing Right Dorsiflexion (L4) 4+ Good+ Plantarflexion (S1) 3+ Fair+ Inversion 4+ Good+ Eversion (S1) 4+ Good+ Left Dorsiflexion (L4) 4- Good- Plantarflexion (S1) 3+ Fair+ Inversion 3 Fair Eversion (S1) 3 Fair PT-OP-Q Treatments Start: 01/19/19 07:30 Freq: Status: Active Protocol: Document 03/11/19 10:30 AMB (Rec: 03/14/19 14:47 AMB [email or web address]) Therapeutic Exercises Sitting Exercises 3 Sitting Exercise Name ankle PF, DF, EV Side left Equipment Used level 4 band Reps/Minutes 2x10 each Standing Exercises 1 Standing Exercise Name heel raises Equipment Used at rail Reps/Minutes x10 Other Exercises stepping Other Exercise Name forward, backward, side, high knees Side bilateral Reps/Minutes 10 ft x3 laps each Manual Therapy Treatment Taping 1 Body Location L achilles Type of Tape Kinesio Tape Comments instructed to keep on for 2-3 days and then take off with wet washcloth. PT-OP-R Modalities Start: 01/19/19 07:30 Freq: Status: Active Protocol: Document 03/11/19 10:30 AMB (Rec: 03/14/19 14:48 AMB [email or web address]) Hot Pack/Cold Pack Treatment cold gel pack Location L ankle Patient Position Supine Treatment Duration (minutes) 10 Patient Tolerance Good PT-OP-T Assessment and Plan Start: 01/19/19 07:30 Freq: Status: Active Protocol: Document 03/11/19 10:30 AMB (Rec: 03/11/19 10:48 AMB [id number]) Physical Therapy Assessment Goals 2 Impairment standing/ walking Short Term Goal (STG) [place] will stand to nutritional services cook for 30 minutes without increasing her baseline pain. STG Duration 4 weeks [facility] Goal (LTG) [place] will walk for 20 minutes at a time without an increase in baseline pain. PROGRESS MADE BUT NOT YET MET LTG Duration 8 weeks 1 Impairment stairs Short Term Goal (STG) [place] will ascend and descend 4 stairs with an alternating gait pattern. STG Duration 4 weeks Museum Archivist Goal (LTG) [place] will descend 4 stairs without an increase in baseline pain. 03/11: intermittently met, pt prefers step to patterning and then does not have pain. LTG Duration 8 weeks Progress Towards Goals Progress Towards Goals Progressing Toward Goals Assessment Summary Assessment [place] is making slow but steady progress with her lower extremity pain. She does have multiple pain issues which complicate her healing. She will benefit from continued PT to improve her gait mechanics and tolerance to standing and stairs. Physical Therapy Plan Frequency and Duration Frequency of Treatment 2x/Week Duration of Treatment 6 weeks Plan of Care Start Date 03/11/19 Plan of Care End Date 04/22/19 Therapeutic Interventions Therapeutic Interventions Balance Training,Gait Training ,Home Exercise Program,Joint Mobilizations,Manual Therapy, Neuromuscular Re-education, Patient/Caregiver Education, Soft Tissue Mobilization, Therapeutic Activities, Therapeutic Exercises Modalities Cold Pack/Ice Massage,Electric Stimulation,Ultrasound Next Visit Focus/Plan Next Note Type Treatment Note Next Visit Plan Progress HEP, pt has tolerated new additions well.
--- NOTE | 2019-03-11 14:57 | PT.OPPOC ---
Current Diagnoses Lesion of sciatic nerve, right lower limb (03/11/19) Pain in left knee (03/11/19) Trochanteric bursitis, right hip (03/11/19) Peroneal tendinitis, left leg (03/11/19) Visit Care Team Role Provider Type Rebecca Webber MD Attending Provider Physician Primary Care Provider Specialty: [facility] Address: [address] [place] [address], [facility] Email: [email or web address] Plan Of Care PT-OP-T Assessment and Plan Start: 01/19/19 07:30 Freq: Status: Active Protocol: Document 03/11/19 10:30 AMB (Rec: 03/11/19 10:48 AMB [id number]) Physical Therapy Assessment Goals 2 Impairment standing/ walking Short Term Goal (STG) [place] will stand to process cheese cooker for 30 minutes without increasing her baseline pain. STG Duration 4 weeks Network Liaison Goal (LTG) [place] will walk for 20 minutes at a time without an increase in baseline pain. PROGRESS MADE BUT NOT YET MET LTG Duration 8 weeks 1 Impairment stairs Short Term Goal (STG) [place] will ascend and descend 4 stairs with an alternating gait pattern. STG Duration 4 weeks Network Liaison Goal (LTG) [place] will descend 4 stairs without an increase in baseline pain. 03/11: intermittently met, pt prefers step to patterning and then does not have pain. LTG Duration 8 weeks Progress Towards Goals Progress Towards Goals Progressing Toward Goals Assessment Summary Assessment [place] is making slow but steady progress with her lower extremity pain, she has completed 11 visits of PT. She does have multiple pain issues which complicate her healing. She will benefit from continued PT to improve her gait mechanics and tolerance to standing and stairs. Physical Therapy Plan Frequency and Duration Frequency of Treatment 2x/Week Duration of Treatment 6 weeks Plan of Care Start Date 03/11/19 Plan of Care End Date 04/22/19 Therapeutic Interventions Therapeutic Interventions Balance Training,Gait Training ,Home Exercise Program,Joint Mobilizations,Manual Therapy, Neuromuscular Re-education, Patient/Caregiver Education, Soft Tissue Mobilization, Therapeutic Activities, Therapeutic Exercises Modalities Cold Pack/Ice Massage,Electric Stimulation,Ultrasound Next Visit Focus/Plan Next Note Type Treatment Note Next Visit Plan Progress HEP, pt has tolerated new additions well. Plan of Care Dates Plan of Care Start Date 03/11/19 Plan of Care End Date 04/22/19
--- NOTE | 2019-03-15 16:32 | PT.OTN ---
Current Diagnoses Lesion of sciatic nerve, right lower limb (03/15/19) Pain in left knee (03/15/19) Trochanteric bursitis, right hip (03/15/19) Peroneal tendinitis, left leg (03/15/19) Physical Therapy Treatment Note PT-OP-A Visit Information Start: 01/19/19 07:30 Freq: Status: Active Protocol: Document 03/15/19 13:00 AMB (Rec: 03/15/19 13:16 AMB [id number]) Out-Patient Physical Therapy Visit Information Visit Information Visit Type Treatment Note Visit Start Time 13:00 Visit Stop Time 13:50 Total Visit Minutes 50 Visit Number 12 Number of NETWORK INFRASTRUCTURE ARCHITECT Visits 0 PT-OP-B Current Condition Start: 01/19/19 07:30 Freq: Status: Active Protocol: Document 01/19/19 09:00 AMB (Rec: 01/19/19 16:13 AMB [email or web address]) Current Condition History of Current Condition Onset Date last few months Current Complaints R back pain, L knee pain, L ankle pain History of Current Condition [place] presents with multiple pain complaints. She states that right now her sciatica is not radiating down the R leg, but that it can, generally when she has been up and moving around a bit. She also reports L medial knee pain and L lateral ankle pain. She has had two falls onto her knees onto her knees in the last 4-5 months. Going down stairs and vacuuming are big problems. Prior Treatments and Tests X-rays: mild R hip and knee degeneration, moderate L knee degeneration. 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 PT-OP-C Subjective Start: 01/19/19 07:30 Freq: Status: Active Protocol: Document 03/15/19 13:00 AMB (Rec: 03/15/19 13:16 AMB [id number]) OP-PT Subjective Patient Comments Patient Comments [place] Not sure how it happened didn't trip on anything, did fall on R hip which is sore with palpation but otherwise ok. PT-OP-F Manual Assessment Start: 01/19/19 07:30 Freq: Status: Active Protocol: Document 01/19/19 09:00 AMB (Rec: 01/19/19 16:13 AMB [email or web address]) Manual Assessments Joint Mobility Assessment Joint Mobility Assessment Tightness and pain at tibiofemoral joint on L, hypomobile patella, but no pain with mobilization at patellofemoral joint PT-OP-G Mobility & Gait Start: 01/19/19 07:30 Freq: Status: Active Protocol: Document 01/19/19 09:00 AMB (Rec: 01/19/19 16:21 AMB [email or web address]) OP Gait Assessment Comments Gait Comments WBOS, excessive lateral weightbearing through the foot , lack of trunk rotation, increased lateral deviation PT-OP-J Posture/Palpation/Skin Start: 01/19/19 07:30 Freq: Status: Active Protocol: Document 01/19/19 09:00 AMB (Rec: 01/19/19 16:21 AMB [email or web address]) Palpation Assessment Location One Palpation Location L ankle Palpation Details tenderness at fibularis longus insertion, and at achilles insertion into heel. Swelling in feet makes palpation somewhat challenging. PT-OP-K Range of Motion Start: 01/19/19 07:30 Freq: Status: Active Protocol: Document 01/19/19 09:00 AMB (Rec: 01/19/19 16:21 AMB [email or web address]) Knee Goniometric Range of Motion Knee Right Flexion Active (degrees) 120 Extension Active (degrees) 0 Left Flexion Active (degrees) 112 Extension Active (degrees) 0 PT-OP-M Strength Start: 01/19/19 07:30 Freq: Status: Active Protocol: Document 01/19/19 09:00 AMB (Rec: 01/19/19 16:21 AMB [email or web address]) Hip Strength Hip Manual Muscle Testing Right Flexion (L2) 4 Good Extension (S1) 4 Good Abduction 4- Good- Left Flexion (L2) 4 Good Extension (S1) 4- Good- Abduction 3+ Fair+ Knee Strength Knee Manual Muscle Testing Right Flexion (S2) 4 Good Extension (L3) 4+ Good+ Left Flexion (S2) 4 Good Extension (L3) 4 Good Ankle/Foot Strength Ankle and Foot Manual Muscle Testing Right Dorsiflexion (L4) 4+ Good+ Plantarflexion (S1) 3+ Fair+ Inversion 4+ Good+ Eversion (S1) 4+ Good+ Left Dorsiflexion (L4) 4- Good- Plantarflexion (S1) 3+ Fair+ Inversion 3 Fair Eversion (S1) 3 Fair PT-OP-Q Treatments Start: 01/19/19 07:30 Freq: Status: Active Protocol: Document 03/15/19 13:00 AMB (Rec: 03/15/19 16:32 AMB [email or web address]) Cardio Equipment Recumbent Bicycle Duration (Minutes) 8 Resistance 4 Therapeutic Exercises Supine Exercises 7 Supine Exercise Name achilles stretch Reps/Minutes 30x2 6 Supine Exercise Name inv/eversion/pf/df Reps/Minutes 5x10 ea Comments isometrics Sitting Exercises 3 Sitting Exercise Name ankle PF, DF, EV Side left Equipment Used level 4 band Reps/Minutes 2x10 each Standing Exercises 1 Standing Exercise Name heel raises Equipment Used at rail Reps/Minutes x12 Manual Therapy Treatment Soft Tissue Mobilization 1 Body Location L ankle Mobilization Type Cross-Friction,Strumming, Sustained Pressure Intensity/Depth Moderate Comments at achilles tendon and fibularis longus/brevis tendon PT-OP-R Modalities Start: 01/19/19 07:30 Freq: Status: Active Protocol: Document 03/15/19 13:00 AMB (Rec: 03/15/19 16:32 AMB [email or web address]) Hot Pack/Cold Pack Treatment cryocuff Location L ankle Patient Position Supine Treatment Duration (minutes) 10 Patient Tolerance Good PT-OP-T Assessment and Plan Start: 01/19/19 07:30 Freq: Status: Active Protocol: Document 03/15/19 13:00 AMB (Rec: 03/15/19 13:46 AMB [id number]) Physical Therapy Assessment Assessment Summary Assessment [place] did not have pain at the end of the session. If she gets a lymphedema referral we will likely need to finish up on her heel pain, as she does not think she could attend PT for two different body parts at the same time. Physical Therapy Plan Next Visit Focus/Plan Next Note Type Treatment Note Next Visit Plan Progress HEP, pt has tolerated new additions well.
--- NOTE | 2019-03-17 13:00 | PT.OTN ---
Current Diagnoses Lesion of sciatic nerve, right lower limb (03/17/19) Pain in left knee (03/17/19) Trochanteric bursitis, right hip (03/17/19) Peroneal tendinitis, left leg (03/17/19) Physical Therapy Treatment Note PT-OP-A Visit Information Start: 01/19/19 07:30 Freq: Status: Active Protocol: Document 03/17/19 12:15 SP (Rec: 03/17/19 13:34 SP [id number]) Out-Patient Physical Therapy Visit Information Visit Information Visit Type Treatment Note Visit Start Time 12:15 Visit Stop Time 13:00 Total Visit Minutes 45 Visit Number 13 Number of TEXTILE CONVERSION MANAGER Visits 1 PT-OP-B Current Condition Start: 01/19/19 07:30 Freq: Status: Active Protocol: Document 01/19/19 09:00 AMB (Rec: 01/19/19 16:13 AMB [email or web address]) Current Condition History of Current Condition Onset Date last few months Current Complaints R back pain, L knee pain, L ankle pain History of Current Condition [place] presents with multiple pain complaints. She states that right now her sciatica is not radiating down the R leg, but that it can, generally when she has been up and moving around a bit. She also reports L medial knee pain and L lateral ankle pain. She has had two falls onto her knees onto her knees in the last 4-5 months. Going down stairs and vacuuming are big problems. Prior Treatments and Tests X-rays: mild R hip and knee degeneration, moderate L knee degeneration. 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 PT-OP-C Subjective Start: 01/19/19 07:30 Freq: Status: Active Protocol: Document 03/17/19 12:15 SP (Rec: 03/17/19 13:34 SP [id number]) OP-PT Subjective Patient Comments Patient Comments Pt demonstrated little antalgic gait stated still feels her pain 4/10 over medial distal achilles but able to walk little better, especially shopping using push cart for support. Pt stated her R hip and lateral R arm still [place] PT-OP-F Manual Assessment Start: 01/19/19 07:30 Freq: Status: Active Protocol: Document 01/19/19 09:00 AMB (Rec: 01/19/19 16:13 AMB [email or web address]) Manual Assessments Joint Mobility Assessment Joint Mobility Assessment Tightness and pain at tibiofemoral joint on L, hypomobile patella, but no pain with mobilization at patellofemoral joint PT-OP-G Mobility & Gait Start: 01/19/19 07:30 Freq: Status: Active Protocol: Document 01/19/19 09:00 AMB (Rec: 01/19/19 16:21 AMB [email or web address]) OP Gait Assessment Comments Gait Comments WBOS, excessive lateral weightbearing through the foot , lack of trunk rotation, increased lateral deviation PT-OP-J Posture/Palpation/Skin Start: 01/19/19 07:30 Freq: Status: Active Protocol: Document 01/19/19 09:00 AMB (Rec: 01/19/19 16:21 AMB [email or web address]) Palpation Assessment Location One Palpation Location L ankle Palpation Details tenderness at fibularis longus insertion, and at achilles insertion into heel. Swelling in feet makes palpation somewhat challenging. PT-OP-K Range of Motion Start: 01/19/19 07:30 Freq: Status: Active Protocol: Document 01/19/19 09:00 AMB (Rec: 01/19/19 16:21 AMB [email or web address]) Knee Goniometric Range of Motion Knee Right Flexion Active (degrees) 120 Extension Active (degrees) 0 Left Flexion Active (degrees) 112 Extension Active (degrees) 0 PT-OP-M Strength Start: 01/19/19 07:30 Freq: Status: Active Protocol: Document 01/19/19 09:00 AMB (Rec: 01/19/19 16:21 AMB [email or web address]) Hip Strength Hip Manual Muscle Testing Right Flexion (L2) 4 Good Extension (S1) 4 Good Abduction 4- Good- Left Flexion (L2) 4 Good Extension (S1) 4- Good- Abduction 3+ Fair+ Knee Strength Knee Manual Muscle Testing Right Flexion (S2) 4 Good Extension (L3) 4+ Good+ Left Flexion (S2) 4 Good Extension (L3) 4 Good Ankle/Foot Strength Ankle and Foot Manual Muscle Testing Right Dorsiflexion (L4) 4+ Good+ Plantarflexion (S1) 3+ Fair+ Inversion 4+ Good+ Eversion (S1) 4+ Good+ Left Dorsiflexion (L4) 4- Good- Plantarflexion (S1) 3+ Fair+ Inversion 3 Fair Eversion (S1) 3 Fair PT-OP-Q Treatments Start: 01/19/19 07:30 Freq: Status: Active Protocol: Document 03/17/19 12:15 SP (Rec: 03/17/19 13:34 SP [id number]) Cardio Equipment Recumbent Bicycle Duration (Minutes) 8 Resistance 5 Seat Position 10 Gym Equipment Shuttle Recovery Bilateral Squats Details slow controlled feet lower platform ankle DF Resistance 50# Shuttle Recovery Platform Stable Reps/Time 2x5 Therapeutic Exercises Supine Exercises 1 Supine Exercise Name bridge Reps/Minutes 5 sec hold x5 Sitting Exercises 3 Sitting Exercise Name ankle PF, DF, EV Side left Equipment Used level 4 band Reps/Minutes 2x10 each Standing Exercises NATIVIDAD calf stretch Side bilateral Reps/Minutes 10 sec x2 eccentric calf raises Standing Exercise Name off step Side bilateral Resistance AROM Equipment Used step Reps/Minutes 2x5 Comments BLE together tolerable range Single stance Side bilateral Equipment Used Therapist DIALYSIS SOCIAL WORKER CGA-min as needed Reps/Minutes 20 sec x3 Comments cued for COG over FAMILIA 1 Standing Exercise Name heel raises Equipment Used at rail Reps/Minutes x12 Manual Therapy Treatment Taping 1 Body Location L achilles Type of Tape Kinesio Tape Skin Inspection small open sore musculotendon junct bandaid over Comments Taped around bandaid, instructed to keep on for 2-3 days and then take off with wet washcloth if tolerated and no adverse affects to skin if so remove immediately. Neuro Re-Education Treatment Balance Activities 1 Details step over hurdles forward/side stepping Surface level Equipment 6 hurdles, rail as needed Reps/Duration 2 laps each direction Comments contact support on rail as needed, cued slow step to gait assist SL stability PT-OP-R Modalities Start: 01/19/19 07:30 Freq: Status: Active Protocol: Document 03/15/19 13:00 AMB (Rec: 03/15/19 16:32 AMB [email or web address]) Hot Pack/Cold Pack Treatment cryocuff Location L ankle Patient Position Supine Treatment Duration (minutes) 10 Patient Tolerance Good PT-OP-T Assessment and Plan Start: 01/19/19 07:30 Freq: Status: Active Protocol: Document 03/17/19 12:15 SP (Rec: 03/17/19 13:34 SP [id number]) Physical Therapy Assessment Goals 2 Impairment standing/ walking Short Term Goal (STG) [place] will stand to cook 3 pastry for 30 minutes without increasing her baseline pain. STG Duration 4 weeks Checking Department Supervisor Goal (LTG) [place] will walk for 20 minutes at a time without an increase in baseline pain. PROGRESS MADE BUT NOT YET MET LTG Duration 8 weeks 1 Impairment stairs Short Term Goal (STG) [place] will ascend and descend 4 stairs with an alternating gait pattern. STG Duration 4 weeks Checking Department Supervisor Goal (LTG) [place] will descend 4 stairs without an increase in baseline pain. 03/11: intermittently met, pt prefers step to patterning and then does not have pain. LTG Duration 8 weeks Assessment Summary Assessment Pt did not have increased pain end of tx, achilles feels ok , more tired from exercises today. Pt had good recall to ankle HEP TB, SLS, HRs today. Added eccentric HRs off step with little more discomfort 6/ 10 reported over distal achilles but decreases at rest . Improved with SL balance added stepping over hurdles today to encourage self recovery and stability durng gait. Added bridge for glut activation to assist SLS balance HEP. DIALYSIS SOCIAL WORKER noted CGA> Min support required and cuing for COG over FAMILIA awareness. Physical Therapy Plan Frequency and Duration Frequency of Treatment 2x/Week Duration of Treatment 6 weeks Plan of Care Start Date 03/11/19 Plan of Care End Date 04/22/19 Therapeutic Interventions Therapeutic Interventions Balance Training,Gait Training ,Home Exercise Program,Joint Mobilizations,Manual Therapy, Neuromuscular Re-education, Patient/Caregiver Education, Soft Tissue Mobilization, Therapeutic Activities, Therapeutic Exercises Modalities Cold Pack/Ice Massage,Electric Stimulation,Ultrasound Next Visit Focus/Plan Next Note Type Treatment Note Next Visit Plan Assess added bridge, eccentric calf raise, shalom f/s stepping last tx. Progress HEP, pt has tolerated new additions well.
--- NOTE | 2019-03-24 10:46 | PT.OTN ---
Current Diagnoses Lesion of sciatic nerve, right lower limb (03/24/19) Pain in left knee (03/24/19) Trochanteric bursitis, right hip (03/24/19) Peroneal tendinitis, left leg (03/24/19) Physical Therapy Treatment Note PT-OP-A Visit Information Start: 01/19/19 07:30 Freq: Status: Active Protocol: Document 03/24/19 09:46 SP (Rec: 03/24/19 11:11 SP [id number]) Out-Patient Physical Therapy Visit Information Visit Information Visit Type Treatment Note Visit Start Time 09:46 Visit Stop Time 10:46 Total Visit Minutes 60 Visit Number 14 Number of HOME DAY CARE PROVIDER Visits 2 PT-OP-B Current Condition Start: 01/19/19 07:30 Freq: Status: Active Protocol: Document 01/19/19 09:00 AMB (Rec: 01/19/19 16:13 AMB [email or web address]) Current Condition History of Current Condition Onset Date last few months Current Complaints R back pain, L knee pain, L ankle pain History of Current Condition [place] presents with multiple pain complaints. She states that right now her sciatica is not radiating down the R leg, but that it can, generally when she has been up and moving around a bit. She also reports L medial knee pain and L lateral ankle pain. She has had two falls onto her knees onto her knees in the last 4-5 months. Going down stairs and vacuuming are big problems. Prior Treatments and Tests X-rays: mild R hip and knee degeneration, moderate L knee degeneration. 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 PT-OP-C Subjective Start: 01/19/19 07:30 Freq: Status: Active Protocol: Document 03/24/19 09:46 SP (Rec: 03/24/19 11:11 SP [id number]) OP-PT Subjective Patient Comments Patient Comments Pt arrived with antalgic gait no AD used upon arrival today. No adverse affects after last tx reported. Pt reported think when fell a week ago was due to her L knee medially shooting pain into knee. Has been experiencing the same pain recently while walking, not able climb stairs step over step only the kid way step to gait patterning. Her LBP hasn't made significant gains, still hurt across but ankle getting better. Is compliant with some of the exercises daily but not all daily. PT-OP-F Manual Assessment Start: 01/19/19 07:30 Freq: Status: Active Protocol: Document 01/19/19 09:00 AMB (Rec: 01/19/19 16:13 AMB [email or web address]) Manual Assessments Joint Mobility Assessment Joint Mobility Assessment Tightness and pain at tibiofemoral joint on L, hypomobile patella, but no pain with mobilization at patellofemoral joint PT-OP-G Mobility & Gait Start: 01/19/19 07:30 Freq: Status: Active Protocol: Document 01/19/19 09:00 AMB (Rec: 01/19/19 16:21 AMB [email or web address]) OP Gait Assessment Comments Gait Comments WBOS, excessive lateral weightbearing through the foot , lack of trunk rotation, increased lateral deviation PT-OP-J Posture/Palpation/Skin Start: 01/19/19 07:30 Freq: Status: Active Protocol: Document 01/19/19 09:00 AMB (Rec: 01/19/19 16:21 AMB [email or web address]) Palpation Assessment Location One Palpation Location L ankle Palpation Details tenderness at fibularis longus insertion, and at achilles insertion into heel. Swelling in feet makes palpation somewhat challenging. PT-OP-K Range of Motion Start: 01/19/19 07:30 Freq: Status: Active Protocol: Document 01/19/19 09:00 AMB (Rec: 01/19/19 16:21 AMB [email or web address]) Knee Goniometric Range of Motion Knee Right Flexion Active (degrees) 120 Extension Active (degrees) 0 Left Flexion Active (degrees) 112 Extension Active (degrees) 0 PT-OP-M Strength Start: 01/19/19 07:30 Freq: Status: Active Protocol: Document 01/19/19 09:00 AMB (Rec: 01/19/19 16:21 AMB [email or web address]) Hip Strength Hip Manual Muscle Testing Right Flexion (L2) 4 Good Extension (S1) 4 Good Abduction 4- Good- Left Flexion (L2) 4 Good Extension (S1) 4- Good- Abduction 3+ Fair+ Knee Strength Knee Manual Muscle Testing Right Flexion (S2) 4 Good Extension (L3) 4+ Good+ Left Flexion (S2) 4 Good Extension (L3) 4 Good Ankle/Foot Strength Ankle and Foot Manual Muscle Testing Right Dorsiflexion (L4) 4+ Good+ Plantarflexion (S1) 3+ Fair+ Inversion 4+ Good+ Eversion (S1) 4+ Good+ Left Dorsiflexion (L4) 4- Good- Plantarflexion (S1) 3+ Fair+ Inversion 3 Fair Eversion (S1) 3 Fair PT-OP-Q Treatments Start: 01/19/19 07:30 Freq: Status: Active Protocol: Document 03/24/19 09:46 SP (Rec: 03/24/19 11:11 SP [id number]) Cardio Equipment Recumbent Elliptical (Biodex) Duration (Minutes) 8 Resistance 6 Seat Position 9 Therapeutic Exercises Standing Exercises [place] calf stretch Side bilateral Reps/Minutes 10 sec x2 eccentric calf raises Equipment Used NATIVIDAD better (step hurt as reps progressed) Reps/Minutes 2x5 Comments BLE together tolerable range Single stance Side bilateral Equipment Used Therapist MERCERIZER CGA-min as needed Reps/Minutes 20 sec x3 Comments cued for COG over FAMILIA 2 Standing Exercise Name lateral band walk (HEP review) Equipment Used Y loop (HEP #1loop) Reps/Minutes 10 ft x2 laps Gait Training Gait Activity stair mgt Description 4 steps x2 sets Level of Assistance SBA Comments trialed step over step with noted L knee buckle improved step to gait and cuing for safety use of HRs. Manual Therapy Treatment Taping 1 Body Location L heel fat pad and distal armando taping Type of Tape [place] Skin Inspection intact at heel, dry skin Comments Heel taping 1 base layer cover roll, 2 layer heel fat pad taping then cover roll top layer. Assist distal achlled attachment and fat pad support . Neuro Re-Education Treatment Balance Activities step taps step Equipment 4 step Reps/Duration 2x10 Comments SBA, cued slow pacing 1 Details forward Surface level Equipment 6 hurdles Reps/Duration 2 laps each direction Comments step to patterning with no contact required, cued for slow pacing SBA PT-OP-R Modalities Start: 01/19/19 07:30 Freq: Status: Active Protocol: Document 03/24/19 09:46 SP (Rec: 03/24/19 11:11 SP [id number]) Hot Pack/Cold Pack Treatment cryocuff Location L ankle Patient Position Supine Treatment Duration (minutes) 10 Patient Tolerance Good PT-OP-T Assessment and Plan Start: 01/19/19 07:30 Freq: Status: Active Protocol: Document 03/24/19 09:46 SP (Rec: 03/24/19 11:11 SP [id number]) Physical Therapy Assessment Goals 2 Impairment standing/ walking Short Term Goal (STG) [place] will stand to cook ship for 30 minutes without increasing her baseline pain. STG Duration 4 weeks Residential Goal (LTG) [place] will walk for 20 minutes at a time without an increase in baseline pain. PROGRESS MADE BUT NOT YET MET LTG Duration 8 weeks 1 Impairment stairs Short Term Goal (STG) [place] will ascend and descend 4 stairs with an alternating gait pattern. STG Duration 4 weeks Gastroenterology Professor Goal (LTG) [place] will descend 4 stairs without an increase in baseline pain. 03/11: intermittently met, pt prefers step to patterning and then does not have pain. LTG Duration 8 weeks Assessment Summary Assessment Ts focused on HEP and balance activites, stair mgt to improve strength and normal gait. Pt reported increased distal L achilles discomfort during eccentric heel raises so stopped and modified to eccentric to neutral on NATIVIDAD incline (floor HEP), instructed to stop eccentric heel raises on step due to pain response. Pt was able to complete balance step exercises with no contact support and patient stated performing stepping over wooden ducks at home and feels balance getting better. No report LBP during tx but increase L distal achilles irritation which improved post McConnel and cover roll heel taping for anchored support and cryotherapy to L achilles. Pt has 2 more treatments and is working on a referral for lymph edema treatment. Physical Therapy Plan Frequency and Duration Frequency of Treatment 2x/Week Duration of Treatment 6 weeks Plan of Care Start Date 03/11/19 Plan of Care End Date 04/22/19 Therapeutic Interventions Therapeutic Interventions Balance Training,Gait Training ,Home Exercise Program,Joint Mobilizations,Manual Therapy, Neuromuscular Re-education, Patient/Caregiver Education, Soft Tissue Mobilization, Therapeutic Activities, Therapeutic Exercises Modalities Cold Pack/Ice Massage,Electric Stimulation,Ultrasound Next Visit Focus/Plan Next Note Type Treatment Note Next Visit Plan Assess response to new [place]/cover roll L heel/ achilles/fat pad taping and balance activities. Progress HEP. Pt has 2 more tx with HOME DAY CARE PROVIDER/ PT, is interested in doing lymph edema treatment, has been working on authorization for appts for this.
--- NOTE | 2019-03-29 11:30 | PT.OTN ---
Current Diagnoses Lesion of sciatic nerve, right lower limb (03/29/19) Pain in left knee (03/29/19) Trochanteric bursitis, right hip (03/29/19) Peroneal tendinitis, left leg (03/29/19) Physical Therapy Treatment Note PT-OP-A Visit Information Start: 01/19/19 07:30 Freq: Status: Active Protocol: Document 03/29/19 10:35 SP (Rec: 03/29/19 11:33 SP [id number]) Out-Patient Physical Therapy Visit Information Visit Information Visit Type Treatment Note Visit Start Time 10:35 Visit Stop Time 11:25 Total Visit Minutes 55 Visit Number 15 Number of SWEAT BOX ATTENDANT Visits 3 PT-OP-B Current Condition Start: 01/19/19 07:30 Freq: Status: Active Protocol: Document 01/19/19 09:00 AMB (Rec: 01/19/19 16:13 AMB [email or web address]) Current Condition History of Current Condition Onset Date last few months Current Complaints R back pain, L knee pain, L ankle pain History of Current Condition [place] presents with multiple pain complaints. She states that right now her sciatica is not radiating down the R leg, but that it can, generally when she has been up and moving around a bit. She also reports L medial knee pain and L lateral ankle pain. She has had two falls onto her knees onto her knees in the last 4-5 months. Going down stairs and vacuuming are big problems. Prior Treatments and Tests X-rays: mild R hip and knee degeneration, moderate L knee degeneration. 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 PT-OP-C Subjective Start: 01/19/19 07:30 Freq: Status: Active Protocol: Document 03/29/19 10:35 SP (Rec: 03/29/19 11:33 SP [id number]) OP-PT Subjective Patient Comments Patient Comments Pt antalgic gait today with noted increased swelling in L ankle upon arrival. Pt stated has been noticing progressively worse swelling and wants to get approval with lymph edema for her swelling. The new taping last tx helped with heel pain and less outside achilles pain. Pt is going to call physician today to get more visits and still get referral for lymph edema. PT-OP-F Manual Assessment Start: 01/19/19 07:30 Freq: Status: Active Protocol: Document 01/19/19 09:00 AMB (Rec: 01/19/19 16:13 AMB [email or web address]) Manual Assessments Joint Mobility Assessment Joint Mobility Assessment Tightness and pain at tibiofemoral joint on L, hypomobile patella, but no pain with mobilization at patellofemoral joint PT-OP-G Mobility & Gait Start: 01/19/19 07:30 Freq: Status: Active Protocol: Document 01/19/19 09:00 AMB (Rec: 01/19/19 16:21 AMB [email or web address]) OP Gait Assessment Comments Gait Comments WBOS, excessive lateral weightbearing through the foot , lack of trunk rotation, increased lateral deviation PT-OP-J Posture/Palpation/Skin Start: 01/19/19 07:30 Freq: Status: Active Protocol: Document 01/19/19 09:00 AMB (Rec: 01/19/19 16:21 AMB [email or web address]) Palpation Assessment Location One Palpation Location L ankle Palpation Details tenderness at fibularis longus insertion, and at achilles insertion into heel. Swelling in feet makes palpation somewhat challenging. PT-OP-K Range of Motion Start: 01/19/19 07:30 Freq: Status: Active Protocol: Document 01/19/19 09:00 AMB (Rec: 01/19/19 16:21 AMB [email or web address]) Knee Goniometric Range of Motion Knee Right Flexion Active (degrees) 120 Extension Active (degrees) 0 Left Flexion Active (degrees) 112 Extension Active (degrees) 0 PT-OP-M Strength Start: 01/19/19 07:30 Freq: Status: Active Protocol: Document 01/19/19 09:00 AMB (Rec: 01/19/19 16:21 AMB [email or web address]) Hip Strength Hip Manual Muscle Testing Right Flexion (L2) 4 Good Extension (S1) 4 Good Abduction 4- Good- Left Flexion (L2) 4 Good Extension (S1) 4- Good- Abduction 3+ Fair+ Knee Strength Knee Manual Muscle Testing Right Flexion (S2) 4 Good Extension (L3) 4+ Good+ Left Flexion (S2) 4 Good Extension (L3) 4 Good Ankle/Foot Strength Ankle and Foot Manual Muscle Testing Right Dorsiflexion (L4) 4+ Good+ Plantarflexion (S1) 3+ Fair+ Inversion 4+ Good+ Eversion (S1) 4+ Good+ Left Dorsiflexion (L4) 4- Good- Plantarflexion (S1) 3+ Fair+ Inversion 3 Fair Eversion (S1) 3 Fair PT-OP-Q Treatments Start: 01/19/19 07:30 Freq: Status: Active Protocol: Document 03/29/19 10:35 SP (Rec: 03/29/19 11:33 SP [id number]) Cardio Equipment Recumbent Bicycle Duration (Minutes) 9 Resistance 6 Seat Position 10 Therapeutic Exercises Sitting Exercises 1 Sitting Exercise Name sit to stand Equipment Used 18 chair Reps/Minutes x10 Comments cued slow pacing with no UE support Standing Exercises Single stance Side bilateral Equipment Used Occasional bar contact Reps/Minutes 20 sec x3 Comments cued for COG over FAMIL[place] Neuro Re-Education Treatment Balance Activities modified tandem Details 2 foot position (1in off) Surface level Reps/Duration 10 sec x3 step taps step Surface stable Equipment over cone Reps/Duration 2x5 Comments Mod > min contact 1 Details forward Surface level Equipment 6 hurdles Reps/Duration 2 laps each direction Comments step to patterning with no contact required, cued for slow pacing arm distance progressed to step over step x2 lap with cued slow pacing. PT-OP-R Modalities Start: 01/19/19 07:30 Freq: Status: Active Protocol: Document 03/29/19 10:35 SP (Rec: 03/29/19 11:33 SP [id number]) Hot Pack/Cold Pack Treatment cryocuff Location L ankle Patient Position Supine Treatment Duration (minutes) 10 Patient Tolerance Good PT-OP-T Assessment and Plan Start: 01/19/19 07:30 Freq: Status: Active Protocol: Document 03/29/19 10:35 SP (Rec: 03/29/19 11:33 SP [id number]) Physical Therapy Assessment Goals 2 Impairment standing/ walking Short Term Goal (STG) [place] will stand to larder cook for 30 minutes without increasing her baseline pain. STG Duration 4 weeks Nursing Home Goal (LTG) [place] will walk for 20 minutes at a time without an increase in baseline pain. PROGRESS MADE BUT NOT YET MET LTG Duration 8 weeks 1 Impairment stairs Short Term Goal (STG) [place] will ascend and descend 4 stairs with an alternating gait pattern. STG Duration 4 weeks Academic Department Chair Goal (LTG) [place] will descend 4 stairs without an increase in baseline pain. 03/11: intermittently met, pt prefers step to patterning and then does not have pain. LTG Duration 8 weeks Assessment Summary Assessment Tx focused on increase single stance time for strengthening and endurance with standing to allow for cooking a meal. Pt stated hasn't tried standing for a period of time used to just sitting but will try before next appt. Pt demonstrated improvement NBOS and single leg stance balance activities as tx progressed today, unable to complete modified tandem initially without Min support 10 sec with no support by end of tx. Good response to L heel fat pad and distal achilles support and did not need retaping, still holding, decreased achilles discomfort reported and TB HEP getting easier. Pt reported aware of heel pain 2-3/10 during tx activiteis. No pain end of tx post cold modality. Pt demonstrated decreased antalgic gait leaving. Physical Therapy Plan Frequency and Duration Frequency of Treatment 2x/Week Duration of Treatment 6 weeks Plan of Care Start Date 03/11/19 Plan of Care End Date 04/22/19 Therapeutic Interventions Therapeutic Interventions Balance Training,Gait Training ,Home Exercise Program,Joint Mobilizations,Manual Therapy, Neuromuscular Re-education, Patient/Caregiver Education, Soft Tissue Mobilization, Therapeutic Activities, Therapeutic Exercises Modalities Cold Pack/Ice Massage,Electric Stimulation,Ultrasound Next Visit Focus/Plan Next Note Type Treatment Note Next Visit Plan Check taping complete last week still responding well. Response to increase balance activities last tx. Continue per PT POC: Progress HEP, pt has tolerated new additions well. Pt has 1 more tx and is is interested in doing lymph edema treatment, has been working on authorization for appts for this.
--- NOTE | 2019-04-01 16:19 | PT.OTN ---
Current Diagnoses Lesion of sciatic nerve, right lower limb (04/01/19) Pain in left knee (04/01/19) Trochanteric bursitis, right hip (04/01/19) Peroneal tendinitis, left leg (04/01/19) Physical Therapy Treatment Note PT-OP-A Visit Information Start: 01/19/19 07:30 Freq: Status: Active Protocol: Document 04/01/19 09:00 AMB (Rec: 04/01/19 13:08 AMB [id number]) Out-Patient Physical Therapy Visit Information Visit Information Visit Type Treatment Note Visit Start Time 09:00 Visit Stop Time 09:55 Total Visit Minutes 55 Visit Number 16 Number of SIMPLEX PRINTER INSTALLER Visits 0 PT-OP-B Current Condition Start: 01/19/19 07:30 Freq: Status: Active Protocol: Document 01/19/19 09:00 AMB (Rec: 01/19/19 16:13 AMB [email or web address]) Current Condition History of Current Condition Onset Date last few months Current Complaints R back pain, L knee pain, L ankle pain History of Current Condition [place] presents with multiple pain complaints. She states that right now her sciatica is not radiating down the R leg, but that it can, generally when she has been up and moving around a bit. She also reports L medial knee pain and L lateral ankle pain. She has had two falls onto her knees onto her knees in the last 4-5 months. Going down stairs and vacuuming are big problems. Prior Treatments and Tests X-rays: mild R hip and knee degeneration, moderate L knee degeneration. 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 PT-OP-C Subjective Start: 01/19/19 07:30 Freq: Status: Active Protocol: Document 04/01/19 09:00 AMB (Rec: 04/01/19 13:08 AMB [id number]) OP-PT Subjective Patient Comments Patient Comments Pt states L ankle not hurting today but is having back pain. Continues to be concerned about her balance. PT-OP-F Manual Assessment Start: 01/19/19 07:30 Freq: Status: Active Protocol: Document 01/19/19 09:00 AMB (Rec: 01/19/19 16:13 AMB [email or web address]) Manual Assessments Joint Mobility Assessment Joint Mobility Assessment Tightness and pain at tibiofemoral joint on L, hypomobile patella, but no pain with mobilization at patellofemoral joint PT-OP-G Mobility & Gait Start: 01/19/19 07:30 Freq: Status: Active Protocol: Document 01/19/19 09:00 AMB (Rec: 01/19/19 16:21 AMB [email or web address]) OP Gait Assessment Comments Gait Comments WBOS, excessive lateral weightbearing through the foot , lack of trunk rotation, increased lateral deviation PT-OP-J Posture/Palpation/Skin Start: 01/19/19 07:30 Freq: Status: Active Protocol: Document 01/19/19 09:00 AMB (Rec: 01/19/19 16:21 AMB [email or web address]) Palpation Assessment Location One Palpation Location L ankle Palpation Details tenderness at fibularis longus insertion, and at achilles insertion into heel. Swelling in feet makes palpation somewhat challenging. PT-OP-K Range of Motion Start: 01/19/19 07:30 Freq: Status: Active Protocol: Document 01/19/19 09:00 AMB (Rec: 01/19/19 16:21 AMB [email or web address]) Knee Goniometric Range of Motion Knee Right Flexion Active (degrees) 120 Extension Active (degrees) 0 Left Flexion Active (degrees) 112 Extension Active (degrees) 0 PT-OP-M Strength Start: 01/19/19 07:30 Freq: Status: Active Protocol: Document 01/19/19 09:00 AMB (Rec: 01/19/19 16:21 AMB [email or web address]) Hip Strength Hip Manual Muscle Testing Right Flexion (L2) 4 Good Extension (S1) 4 Good Abduction 4- Good- Left Flexion (L2) 4 Good Extension (S1) 4- Good- Abduction 3+ Fair+ Knee Strength Knee Manual Muscle Testing Right Flexion (S2) 4 Good Extension (L3) 4+ Good+ Left Flexion (S2) 4 Good Extension (L3) 4 Good Ankle/Foot Strength Ankle and Foot Manual Muscle Testing Right Dorsiflexion (L4) 4+ Good+ Plantarflexion (S1) 3+ Fair+ Inversion 4+ Good+ Eversion (S1) 4+ Good+ Left Dorsiflexion (L4) 4- Good- Plantarflexion (S1) 3+ Fair+ Inversion 3 Fair Eversion (S1) 3 Fair PT-OP-Q Treatments Start: 01/19/19 07:30 Freq: Status: Active Protocol: Document 04/01/19 09:00 AMB (Rec: 04/01/19 13:08 AMB [id number]) Cardio Equipment Recumbent Bicycle Duration (Minutes) 9 Resistance 6 Seat Position 10 Therapeutic Exercises Sitting Exercises 3 Sitting Exercise Name ankle PF, DF, EV Side left Equipment Used level 4 band Reps/Minutes 2x10 each 1 Sitting Exercise Name sit to stand Equipment Used 18 chair Reps/Minutes x10 Comments cued slow pacing with no UE support Neuro Re-Education Treatment Balance Activities 2 Details blue foam pad Comments NBOS: eyes closed then eyes open horizontal head turns 1 Details forward/ lateral Surface level Equipment 6 hurdles Reps/Duration 2 laps each direction Comments step to patterning with no contact required, cued for slow pacing arm distance progressed to step over step x2 lap with cued slow pacing. Lateral stepping more difficult. PT-OP-R Modalities Start: 01/19/19 07:30 Freq: Status: Active Protocol: Document 04/01/19 09:00 AMB (Rec: 04/01/19 16:17 AMB [email or web address]) Hot Pack/Cold Pack Treatment cold gel pack Location L ankle Patient Position Supine Treatment Duration (minutes) 10 Patient Tolerance Good PT-OP-T Assessment and Plan Start: 01/19/19 07:30 Freq: Status: Active Protocol: Document 04/01/19 09:00 AMB (Rec: 04/01/19 16:17 AMB [email or web address]) Physical Therapy Assessment Assessment Summary Assessment [place] tolerated more balance exercises today, although single leg stance did increase her pain. Encouraged her to take tape off at this time, pt wants to soak it to take it off, so will let her do this. Can retape next visit, if skin is in good condition. Physical Therapy Plan Next Visit Focus/Plan Next Visit Plan Pt doing well with taping and balance exercises, if pt keeps doing well, may be able to plan d/c soon.
--- NOTE | 2019-04-07 10:05 | PT.OTN ---
Current Diagnoses Lesion of sciatic nerve, right lower limb (04/07/19) Pain in left knee (04/07/19) Trochanteric bursitis, right hip (04/07/19) Peroneal tendinitis, left leg (04/07/19) Physical Therapy Treatment Note PT-OP-A Visit Information Start: 01/19/19 07:30 Freq: Status: Active Protocol: Document 04/07/19 09:05 SP (Rec: 04/07/19 12:01 SP [id number]) Out-Patient Physical Therapy Visit Information Visit Information Visit Type Treatment Note Visit Start Time 09:05 Visit Stop Time 10:05 Total Visit Minutes 60 Visit Number 17 Number of FLEET SALESPERSON Visits 1 PT-OP-B Current Condition Start: 01/19/19 07:30 Freq: Status: Active Protocol: Document 01/19/19 09:00 AMB (Rec: 01/19/19 16:13 AMB [email or web address]) Current Condition History of Current Condition Onset Date last few months Current Complaints R back pain, L knee pain, L ankle pain History of Current Condition [place] presents with multiple pain complaints. She states that right now her sciatica is not radiating down the R leg, but that it can, generally when she has been up and moving around a bit. She also reports L medial knee pain and L lateral ankle pain. She has had two falls onto her knees onto her knees in the last 4-5 months. Going down stairs and vacuuming are big problems. Prior Treatments and Tests X-rays: mild R hip and knee degeneration, moderate L knee degeneration. 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 PT-OP-C Subjective Start: 01/19/19 07:30 Freq: Status: Active Protocol: Document 04/07/19 09:05 SP (Rec: 04/07/19 12:01 SP [id number]) OP-PT Subjective Patient Comments Patient Comments Pt stated her ankle feels pretty good in the am and mid day but starts to hurt later in the day. Pre PT L>R LB hurting 3-07/29, noted antalgic gait with mechanics L hip depression during RLE advancement gait. PT-OP-F Manual Assessment Start: 01/19/19 07:30 Freq: Status: Active Protocol: Document 01/19/19 09:00 AMB (Rec: 01/19/19 16:13 AMB [email or web address]) Manual Assessments Joint Mobility Assessment Joint Mobility Assessment Tightness and pain at tibiofemoral joint on L, hypomobile patella, but no pain with mobilization at patellofemoral joint PT-OP-G Mobility & Gait Start: 01/19/19 07:30 Freq: Status: Active Protocol: Document 01/19/19 09:00 AMB (Rec: 01/19/19 16:21 AMB [email or web address]) OP Gait Assessment Comments Gait Comments WBOS, excessive lateral weightbearing through the foot , lack of trunk rotation, increased lateral deviation PT-OP-J Posture/Palpation/Skin Start: 01/19/19 07:30 Freq: Status: Active Protocol: Document 01/19/19 09:00 AMB (Rec: 01/19/19 16:21 AMB [email or web address]) Palpation Assessment Location One Palpation Location L ankle Palpation Details tenderness at fibularis longus insertion, and at achilles insertion into heel. Swelling in feet makes palpation somewhat challenging. PT-OP-K Range of Motion Start: 01/19/19 07:30 Freq: Status: Active Protocol: Document 01/19/19 09:00 AMB (Rec: 01/19/19 16:21 AMB [email or web address]) Knee Goniometric Range of Motion Knee Right Flexion Active (degrees) 120 Extension Active (degrees) 0 Left Flexion Active (degrees) 112 Extension Active (degrees) 0 PT-OP-M Strength Start: 01/19/19 07:30 Freq: Status: Active Protocol: Document 01/19/19 09:00 AMB (Rec: 01/19/19 16:21 AMB [email or web address]) Hip Strength Hip Manual Muscle Testing Right Flexion (L2) 4 Good Extension (S1) 4 Good Abduction 4- Good- Left Flexion (L2) 4 Good Extension (S1) 4- Good- Abduction 3+ Fair+ Knee Strength Knee Manual Muscle Testing Right Flexion (S2) 4 Good Extension (L3) 4+ Good+ Left Flexion (S2) 4 Good Extension (L3) 4 Good Ankle/Foot Strength Ankle and Foot Manual Muscle Testing Right Dorsiflexion (L4) 4+ Good+ Plantarflexion (S1) 3+ Fair+ Inversion 4+ Good+ Eversion (S1) 4+ Good+ Left Dorsiflexion (L4) 4- Good- Plantarflexion (S1) 3+ Fair+ Inversion 3 Fair Eversion (S1) 3 Fair PT-OP-Q Treatments Start: 01/19/19 07:30 Freq: Status: Active Protocol: Document 04/07/19 09:05 SP (Rec: 04/07/19 12:01 SP [id number]) Therapeutic Exercises Sitting Exercises 2 Sitting Exercise Name glut/PF stretch (fig 4) IR/ER Side bilateral Reps/Minutes 30 x2 each direction 1 Sitting Exercise Name sit to stand Equipment Used 18 chair Reps/Minutes x10 Comments cued slow pacing with no UE support Standing Exercises NATIVIDAD calf stretch Side bilateral Reps/Minutes 10 sec x2 Manual Therapy Treatment Soft Tissue Mobilization 1 Body Location Glut med, Hip ERs Mobilization Type Cross-Friction,Myofascial Release,Sustained Pressure Intensity/Depth Moderate Body Position Prone Comments cued for sustained pressure initially then small cross friction Taping 1 Body Location L heel fat pad and distal armando taping Type of Tape [place] Skin Inspection intact at heel, dry skin Comments Heel taping 1 base layer cover roll, 2 layer heel fat pad taping then cover roll top layer. Assist distal achlled attachment and fat pad support . Neuro Re-Education Treatment Balance Activities Uneven surface obstacle course Comments close SBA, CGA up on step, over shalom, cushions 2 Details blue foam pad Reps/Duration 1 min x2 Comments NBOS: eyes closed then eyes open horizontal head turns modified tandem Details 2 foot position (1in off) Surface blue foam Reps/Duration 30 sec x2 PT-OP-R Modalities Start: 01/19/19 07:30 Freq: Status: Active Protocol: Document 04/07/19 09:05 SP (Rec: 04/07/19 12:01 SP [id number]) Hot Pack/Cold Pack Treatment cryocuff Location L ankle Patient Position Supine Treatment Duration (minutes) 10 Patient Tolerance Good PT-OP-T Assessment and Plan Start: 01/19/19 07:30 Freq: Status: Active Protocol: Document 04/07/19 09:05 SP (Rec: 04/07/19 12:01 SP [id number]) Physical Therapy Assessment Goals 2 Impairment standing/ walking Short Term Goal (STG) [place] 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 STG Duration 4 weeks [facility] Goal (LTG) [place] will walk for 20 minutes at a time without an increase in baseline pain. PROGRESS MADE BUT NOT YET MET LTG Duration 8 weeks 1 Impairment stairs Short Term Goal (STG) [place] will ascend and descend 4 stairs with an alternating gait pattern. STG Duration 4 weeks Library Sales Consultant Goal (LTG) [place] will descend 4 stairs without an increase in baseline pain. 03/11: intermittently met, pt prefers step to patterning and then does not have pain. LTG Duration 8 weeks Assessment Summary Assessment Tx initially focused on manual STM to B gluteal region to decrease reported pain with positive feedback, sensitive to pressure and adjustted per patient feedback with demonstration of self using ball at wall (hand out provide next tx, forgot today) and added glut stretch to assist hip ROM with positive feedback results no pain. Pt reported little more irritation lateral L achilles at heel but tolerated balance activies including newly added uneven obstacle course. Pt requested reapplication of [place] and leukotaping to heel to support distal attachment irritation end of tx and provided reminders to check skin integrity and remove if irritation adverse affects but can wear until next tx. Pt reported didnt' feel much of anything end of tx and noted decreased antalgic gait when leaving, slight trunk wt shift and improved level p [email or web address]. Physical Therapy Plan Frequency and Duration Frequency of Treatment 2x/Week Duration of Treatment 6 weeks Plan of Care Start Date 03/11/19 Plan of Care End Date 04/22/19 Therapeutic Interventions Therapeutic Interventions Balance Training,Gait Training ,Home Exercise Program,Joint Mobilizations,Manual Therapy, Neuromuscular Re-education, Patient/Caregiver Education, Soft Tissue Mobilization, Therapeutic Activities, Therapeutic Exercises Modalities Cold Pack/Ice Massage,Electric Stimulation,Ultrasound Next Visit Focus/Plan Next Visit Plan Assess response to last tx, manual, glut stretching and obstacle course activities. Pt doing well with taping and balance exercises, if pt keeps doing well, may be able to plan d/c soon.
--- NOTE | 2019-04-13 09:45 | PT.OTN ---
Current Diagnoses Lesion of sciatic nerve, right lower limb (04/13/19) Pain in left knee (04/13/19) Trochanteric bursitis, right hip (04/13/19) Peroneal tendinitis, left leg (04/13/19) Physical Therapy Treatment Note PT-OP-A Visit Information Start: 01/19/19 07:30 Freq: Status: Active Protocol: Document 04/13/19 09:04 SP (Rec: 04/13/19 12:55 SP [id number]) Out-Patient Physical Therapy Visit Information Visit Information Visit Type Treatment Note Visit Start Time 09:04 Visit Stop Time 09:45 Total Visit Minutes 41 Visit Number 18 Number of PROCESS LABORATORY SPECIALIST Visits 2 PT-OP-B Current Condition Start: 01/19/19 07:30 Freq: Status: Active Protocol: Document 01/19/19 09:00 AMB (Rec: 01/19/19 16:13 AMB [email or web address]) Current Condition History of Current Condition Onset Date last few months Current Complaints R back pain, L knee pain, L ankle pain History of Current Condition [place] presents with multiple pain complaints. She states that right now her sciatica is not radiating down the R leg, but that it can, generally when she has been up and moving around a bit. She also reports L medial knee pain and L lateral ankle pain. She has had two falls onto her knees onto her knees in the last 4-5 months. Going down stairs and vacuuming are big problems. Prior Treatments and Tests X-rays: mild R hip and knee degeneration, moderate L knee degeneration. 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 PT-OP-C Subjective Start: 01/19/19 07:30 Freq: Status: Active Protocol: Document 04/13/19 09:04 SP (Rec: 04/13/19 12:55 SP [id number]) OP-PT Subjective Patient Comments Patient Comments Pt arrived forward flexed trunk antalgic gait. Pt stated able to walk longer now at store if use cart, can walk while carrying groceries just not as long distances as she' d like yet. It's taking long time for that L inside/outside heel tendons to heal. The L great toe is hurting more than anywhere else today. I still haven't heard back about getting a lymph edema therapy . PT-OP-F Manual Assessment Start: 01/19/19 07:30 Freq: Status: Active Protocol: Document 01/19/19 09:00 AMB (Rec: 01/19/19 16:13 AMB [email or web address]) Manual Assessments Joint Mobility Assessment Joint Mobility Assessment Tightness and pain at tibiofemoral joint on L, hypomobile patella, but no pain with mobilization at patellofemoral joint PT-OP-G Mobility & Gait Start: 01/19/19 07:30 Freq: Status: Active Protocol: Document 01/19/19 09:00 AMB (Rec: 01/19/19 16:21 AMB [email or web address]) OP Gait Assessment Comments Gait Comments WBOS, excessive lateral weightbearing through the foot , lack of trunk rotation, increased lateral deviation PT-OP-J Posture/Palpation/Skin Start: 01/19/19 07:30 Freq: Status: Active Protocol: Document 01/19/19 09:00 AMB (Rec: 01/19/19 16:21 AMB [email or web address]) Palpation Assessment Location One Palpation Location L ankle Palpation Details tenderness at fibularis longus insertion, and at achilles insertion into heel. Swelling in feet makes palpation somewhat challenging. PT-OP-K Range of Motion Start: 01/19/19 07:30 Freq: Status: Active Protocol: Document 01/19/19 09:00 AMB (Rec: 01/19/19 16:21 AMB [email or web address]) Knee Goniometric Range of Motion Knee Right Flexion Active (degrees) 120 Extension Active (degrees) 0 Left Flexion Active (degrees) 112 Extension Active (degrees) 0 PT-OP-M Strength Start: 01/19/19 07:30 Freq: Status: Active Protocol: Document 01/19/19 09:00 AMB (Rec: 01/19/19 16:21 AMB [email or web address]) Hip Strength Hip Manual Muscle Testing Right Flexion (L2) 4 Good Extension (S1) 4 Good Abduction 4- Good- Left Flexion (L2) 4 Good Extension (S1) 4- Good- Abduction 3+ Fair+ Knee Strength Knee Manual Muscle Testing Right Flexion (S2) 4 Good Extension (L3) 4+ Good+ Left Flexion (S2) 4 Good Extension (L3) 4 Good Ankle/Foot Strength Ankle and Foot Manual Muscle Testing Right Dorsiflexion (L4) 4+ Good+ Plantarflexion (S1) 3+ Fair+ Inversion 4+ Good+ Eversion (S1) 4+ Good+ Left Dorsiflexion (L4) 4- Good- Plantarflexion (S1) 3+ Fair+ Inversion 3 Fair Eversion (S1) 3 Fair PT-OP-Q Treatments Start: 01/19/19 07:30 Freq: Status: Active Protocol: Document 04/13/19 09:04 SP (Rec: 04/13/19 12:55 SP [id number]) Cardio Equipment Recumbent Bicycle Duration (Minutes) 8 Resistance 6 Seat Position 10 Therapeutic Exercises Sitting Exercises QL stretch Side bilateral Reps/Minutes 30 x2 2 Sitting Exercise Name glut/PF stretch (fig 4) IR/ER Side bilateral Reps/Minutes 30 x2 each direction 1 Sitting Exercise Name sit to stand Equipment Used 18 box Reps/Minutes 2x10 Comments cued slow pacing with no UE support Gait Training Gait Activity stair mgt Comments ascend/descend step over step LHR (ascend), cued for forward facing (reports L anterior knee discomfort descending) Manual Therapy Treatment Taping 1 Body Location L heel fat pad and distal armando taping Type of Tape [place] Skin Inspection intact at heel, dry skin Comments instruction on self Heel taping 1 base layer cover roll , 2 layer heel fat pad taping leukotape then cover roll top layer. Assist distal achlled attachment and fat pad support . Neuro Re-Education Treatment Balance Activities single stance Surface stable Reps/Duration 30 sec each le Comments intermittent contact support RLE, CG to min LLE 1 Details forward/ lateral Surface level Equipment 6 hurdles Reps/Duration 2 laps each direction Comments step to patterning with no contact required, cued for slow pacing arm distance progressed to step over step x2 lap with cued slow pacing. Lateral stepping more difficult. PT-OP-R Modalities Start: 01/19/19 07:30 Freq: Status: Active Protocol: Document 04/07/19 09:05 SP (Rec: 04/07/19 12:01 SP [id number]) Hot Pack/Cold Pack Treatment cryocuff Location L ankle Patient Position Supine Treatment Duration (minutes) 10 Patient Tolerance Good PT-OP-T Assessment and Plan Start: 01/19/19 07:30 Freq: Status: Active Protocol: Document 04/13/19 09:04 SP (Rec: 04/13/19 12:55 SP [id number]) Physical Therapy Assessment Goals 2 Impairment standing/ walking Short Term Goal (STG) [place] will stand to barbecue cook for 30 minutes without increasing her baseline pain. STG Duration 4 weeks [facility] Goal (LTG) [place] will walk for 20 minutes at a time without an increase in baseline pain. PROGRESS MADE BUT NOT YET MET LTG Duration 8 weeks 1 Impairment stairs Short Term Goal (STG) [place] will ascend and descend 4 stairs with an alternating gait pattern. STG Duration 4 weeks [facility] Goal (LTG) [place] will descend 4 stairs without an increase in baseline pain. 03/11: intermittently met, pt prefers step to patterning and then does not have pain. LTG Duration 8 weeks Assessment Summary Assessment Tx focused on upright posture, balance to improve trunk alignment during gait. Pt stated decreased LB and achilles discomfort when is aware of posture. Cued for COG over FAMILIA during SLS and [employer] M[employer] AND LATHE OPERATOR as needed for self feedback on self trunk righting corrections with cross over to shalom stepping initially step to then progressed to step over step patterning. Cued for slow pacing, upright posture which improved SLS quality and energy conservation, decreased noted breathing rate than initially demonstrated step over step. Pt has made gains in balance, strength and some decreased low back and achilles pain overall. Pt stated no modalities needed for pain control today but does feel good. Physical Therapy Plan Frequency and Duration Frequency of Treatment 2x/Week Duration of Treatment 6 weeks Plan of Care Start Date 03/11/19 Plan of Care End Date 04/22/19 Therapeutic Interventions Therapeutic Interventions Balance Training,Gait Training ,Home Exercise Program,Joint Mobilizations,Manual Therapy, Neuromuscular Re-education, Patient/Caregiver Education, Soft Tissue Mobilization, Therapeutic Activities, Therapeutic Exercises Modalities Cold Pack/Ice Massage,Electric Stimulation,Ultrasound Next Visit Focus/Plan Next Visit Plan Assess response to last tx balance activities and self taping achilles to be able to do at home herself. Pt has one more tx with PT next. May be able to plan d/c soon.
--- NOTE | 2019-04-28 16:00 | PT.OTN ---
Current Diagnoses Lesion of sciatic nerve, right lower limb (04/28/19) Pain in left knee (04/28/19) Trochanteric bursitis, right hip (04/28/19) Peroneal tendinitis, left leg (04/28/19) Physical Therapy Treatment Note PT-OP-A Visit Information Start: 01/19/19 07:30 Freq: Status: Active Protocol: Document 04/28/19 13:45 AMB (Rec: 04/29/19 09:37 AMB [id number]) Out-Patient Physical Therapy Visit Information Visit Information Visit Type Discharge Summary Visit Start Time 13:45 Visit Stop Time 14:30 Total Visit Minutes 45 Visit Number 19 Number of RAIL CAR PAINTER/SANDBLASTER Visits 0 PT-OP-B Current Condition Start: 01/19/19 07:30 Freq: Status: Active Protocol: Document 01/19/19 09:00 AMB (Rec: 01/19/19 16:13 AMB [email or web address]) Current Condition History of Current Condition Onset Date last few months Current Complaints R back pain, L knee pain, L ankle pain History of Current Condition [place] presents with multiple pain complaints. She states that right now her sciatica is not radiating down the R leg, but that it can, generally when she has been up and moving around a bit. She also reports L medial knee pain and L lateral ankle pain. She has had two falls onto her knees onto her knees in the last 4-5 months. Going down stairs and vacuuming are big problems. Prior Treatments and Tests X-rays: mild R hip and knee degeneration, moderate L knee degeneration. 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 PT-OP-C Subjective Start: 01/19/19 07:30 Freq: Status: Active Protocol: Document 04/28/19 13:45 AMB (Rec: 04/29/19 09:37 AMB [id number]) OP-PT Subjective Patient Comments Patient Comments Pt has been approved for lymphedema PT, so she is ready for d/c from working on her LE pain for now, but might want to come back in the future. PT-OP-F Manual Assessment Start: 01/19/19 07:30 Freq: Status: Active Protocol: Document 01/19/19 09:00 AMB (Rec: 01/19/19 16:13 AMB [email or web address]) Manual Assessments Joint Mobility Assessment Joint Mobility Assessment Tightness and pain at tibiofemoral joint on L, hypomobile patella, but no pain with mobilization at patellofemoral joint PT-OP-G Mobility & Gait Start: 01/19/19 07:30 Freq: Status: Active Protocol: Document 01/19/19 09:00 AMB (Rec: 01/19/19 16:21 AMB [email or web address]) OP Gait Assessment Comments Gait Comments WBOS, excessive lateral weightbearing through the foot , lack of trunk rotation, increased lateral deviation PT-OP-J Posture/Palpation/Skin Start: 01/19/19 07:30 Freq: Status: Active Protocol: Document 01/19/19 09:00 AMB (Rec: 01/19/19 16:21 AMB [email or web address]) Palpation Assessment Location One Palpation Location L ankle Palpation Details tenderness at fibularis longus insertion, and at achilles insertion into heel. Swelling in feet makes palpation somewhat challenging. PT-OP-K Range of Motion Start: 01/19/19 07:30 Freq: Status: Active Protocol: Document 01/19/19 09:00 AMB (Rec: 01/19/19 16:21 AMB [email or web address]) Knee Goniometric Range of Motion Knee Right Flexion Active (degrees) 120 Extension Active (degrees) 0 Left Flexion Active (degrees) 112 Extension Active (degrees) 0 PT-OP-M Strength Start: 01/19/19 07:30 Freq: Status: Active Protocol: Document 01/19/19 09:00 AMB (Rec: 01/19/19 16:21 AMB [email or web address]) Hip Strength Hip Manual Muscle Testing Right Flexion (L2) 4 Good Extension (S1) 4 Good Abduction 4- Good- Left Flexion (L2) 4 Good Extension (S1) 4- Good- Abduction 3+ Fair+ Knee Strength Knee Manual Muscle Testing Right Flexion (S2) 4 Good Extension (L3) 4+ Good+ Left Flexion (S2) 4 Good Extension (L3) 4 Good Ankle/Foot Strength Ankle and Foot Manual Muscle Testing Right Dorsiflexion (L4) 4+ Good+ Plantarflexion (S1) 3+ Fair+ Inversion 4+ Good+ Eversion (S1) 4+ Good+ Left Dorsiflexion (L4) 4- Good- Plantarflexion (S1) 3+ Fair+ Inversion 3 Fair Eversion (S1) 3 Fair PT-OP-Q Treatments Start: 01/19/19 07:30 Freq: Status: Active Protocol: Document 04/28/19 13:45 AMB (Rec: 04/29/19 09:37 AMB [id number]) Therapeutic Exercises Sitting Exercises 2 Sitting Exercise Name glut/PF stretch (fig 4) IR/ER Side bilateral Reps/Minutes 30 x2 each direction 1 Sitting Exercise Name sit to stand Equipment Used 20 mat table Reps/Minutes 2x10 Comments cued slow pacing with no UE support Standing Exercises step downs Standing Exercise Name lateral Side bilateral Resistance 4 step Reps/Minutes x10 Comments only able to tolerated 10 reps secondary to knee Single stance Side bilateral Equipment Used Occasional bar contact Reps/Minutes 20 sec x3 Comments cued for COG over FAMILIA Neuro Re-Education Treatment Balance Activities 1 Details forward/ lateral Surface level Equipment 6 hurdles Reps/Duration 2 laps each direction Comments step to patterning with no contact required, cued for slow pacing arm distance progressed to step over step x2 lap with cued slow pacing. Lateral stepping more difficult. PT-OP-R Modalities Start: 01/19/19 07:30 Freq: Status: Active Protocol: Document 04/07/19 09:05 SP (Rec: 04/07/19 12:01 SP [id number]) Hot Pack/Cold Pack Treatment cryocuff Location L ankle Patient Position Supine Treatment Duration (minutes) 10 Patient Tolerance Good PT-OP-T Assessment and Plan Start: 01/19/19 07:30 Freq: Status: Active Protocol: Document 04/28/19 13:55 AMB (Rec: 04/28/19 14:02 AMB [id number]) Physical Therapy Assessment Goals 2 Impairment standing/ walking Short Term Goal (STG) [place] will stand to school cafeteria head cook for 30 minutes without increasing her baseline pain. STG Duration INTERMITTENTLY MET [facility] Goal (LTG) [place] will walk for 20 minutes at a time without an increase in baseline pain. PROGRESS MADE BUT NOT YET MET LTG Duration NOT MET 1 Impairment stairs Short Term Goal (STG) [place] will ascend and descend 4 stairs with an alternating gait pattern. STG Duration PROGRESS MADE Mcfp Goal (LTG) [place] will descend 4 stairs without an increase in baseline pain. 03/11: intermittently met, pt prefers step to patterning and then does not have pain. LTG Duration PROGRESS MADE Assessment Summary Assessment Pt has less pain in her left leg than at eval, but continues to have pain with extended walking or standing. Hip, knee, and ankle pain continues to limit her with shopping and stairs. Pt is going to be discharged now to work on lymphedema for now. Physical Therapy Plan Discharge Physical Therapy Discharge Reasons Patient Request Discharge Comments Pt is going to be doing lymphedema therapy now.
--- NOTE | 2019-04-29 15:14 | PT.OPPOC ---
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) Pain in left knee (04/28/19) Trochanteric bursitis, right hip (04/28/19) Peroneal tendinitis, left leg (04/28/19) Visit Care Team Role Provider Type Rebecca Webber MD Attending Provider Physician Primary Care Provider Specialty: Family Practice Address: [address] [place] [address], [facility], [place], [place], [facility] Email: [email or web address] Plan Of Care PT-OP-T Assessment and Plan Start: 01/19/19 07:30 Freq: Status: Active Protocol: Document 04/28/19 13:55 AMB (Rec: 04/28/19 14:02 AMB [id number]) Physical Therapy Assessment Goals 2 Impairment standing/ walking Short Term Goal (STG) [place] will stand to mash tub cooker operator for 30 minutes without increasing her baseline pain. STG Duration INTERMITTENTLY MET Insurance Loss Assessor Goal (LTG) [place] will walk for 20 minutes at a time without an increase in baseline pain. PROGRESS MADE BUT NOT YET MET LTG Duration NOT MET 1 Impairment stairs Short Term Goal (STG) [place] will ascend and descend 4 stairs with an alternating gait pattern. STG Duration PROGRESS MADE [facility] Goal (LTG) [place] will descend 4 stairs without an increase in baseline pain. 03/11: intermittently met, pt prefers step to patterning and then does not have pain. LTG Duration PROGRESS MADE Assessment Summary Assessment Pt has less pain in her left leg than at [facility], but continues to have pain with extended walking or standing. Hip, knee, and ankle pain continues to limit her with shopping and stairs. Pt is going to be discharged now to work on lymphedema for now. Physical Therapy Plan Frequency and Duration Frequency of Treatment 1x/Week Duration of Treatment 1 week Plan of Care Start Date 04/22/19 Plan of Care End Date 04/29/19 Therapeutic Interventions Therapeutic Interventions Balance Training,Gait Training ,Home Exercise Program,Joint Mobilizations,Manual Therapy, Neuromuscular Re-education, Patient/Caregiver Education, Soft Tissue Mobilization, Therapeutic Activities, Therapeutic Exercises Modalities Cold Pack/Ice Massage,Electric Stimulation,Ultrasound Discharge Physical Therapy Discharge Reasons Patient Request Discharge Comments Pt is going to be doing lymphedema therapy now. Plan of Care Dates Plan of Care Start Date 04/22/19 Plan of Care End Date 04/29/19 Electronically Signed by: Anila Kinney, PT 04/29/19 [id number] Please Sign and Return: I have reviewed this Plan of Care and certify that the skilled therapy services above are required to meet the patient?s needs. Physician Signature Date Printed Name and Credentials Clinical Instructor Signature Printed Name and Credentials
--- NOTE | 2019-04-29 15:14 | PT.OPPOC ---
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) Pain in left knee (04/28/19) Trochanteric bursitis, right hip (04/28/19) Peroneal tendinitis, left leg (04/28/19) Visit Care Team Role Provider Type Rebecca Webber MD Attending Provider Physician Primary Care Provider Specialty: Family Practice Address: [address] [place] [address], [facility] [place], [place], [facility] Email: [email or web address] Plan Of Care PT-OP-T Assessment and Plan Start: 01/19/19 07:30 Freq: Status: Active Protocol: Document 04/28/19 13:55 AMB (Rec: 04/28/19 14:02 AMB [id number]) Physical Therapy Assessment Goals 2 Impairment standing/ walking Short Term Goal (STG) [place] will stand to restaurant line cook for 30 minutes without increasing her baseline pain. STG Duration INTERMITTENTLY MET Vessel Traffic Officer Goal (LTG) [place] will walk for 20 minutes at a time without an increase in baseline pain. PROGRESS MADE BUT NOT YET MET LTG Duration NOT MET 1 Impairment stairs Short Term Goal (STG) [place] will ascend and descend 4 stairs with an alternating gait pattern. STG Duration PROGRESS MADE [facility] Goal (LTG) [place] will descend 4 stairs without an increase in baseline pain. 03/11: intermittently met, pt prefers step to patterning and then does not have pain. LTG Duration PROGRESS MADE Assessment Summary Assessment Pt has less pain in her left leg than at [facility], but continues to have pain with extended walking or standing. Hip, knee, and ankle pain continues to limit her with shopping and stairs. Pt is going to be discharged now to work on lymphedema for now. Physical Therapy Plan Frequency and Duration Frequency of Treatment 1x/Week Duration of Treatment 1 week Plan of Care Start Date 04/22/19 Plan of Care End Date 04/29/19 Therapeutic Interventions Therapeutic Interventions Balance Training,Gait Training ,Home Exercise Program,Joint Mobilizations,Manual Therapy, Neuromuscular Re-education, Patient/Caregiver Education, Soft Tissue Mobilization, Therapeutic Activities, Therapeutic Exercises Modalities Cold Pack/Ice Massage,Electric Stimulation,Ultrasound Discharge Physical Therapy Discharge Reasons Patient Request Discharge Comments Pt is going to be doing lymphedema therapy now. Plan of Care Dates Plan of Care Start Date 04/22/19 Plan of Care End Date 04/29/19 Electronically Signed by: Anila Kinney, PT 04/29/19 [id number] Please Sign and Return: I have reviewed this Plan of Care and certify that the skilled therapy services above are required to meet the patient?s needs. Physician Signature Date Printed Name and Credentials Clinical Instructor Signature Printed Name and Credentials
== END 2019-04-28 15:45 | disposition home or self-care (01) ==
LOC: PHYS 13:45
PROVIDERS: PCP Family Medicine; Visit Provider Family Medicine
DX: G57.01 Lesion of sciatic nerve, right lower limb (principal); M70.61 Trochanteric bursitis, right hip; M25.562 Pain in left knee; M76.72 Peroneal tendinitis, left leg
CPT/HCPCS: 97010; 97035; 97110; 97112; 97140; 97161

== ENCOUNTER 2019-07-13 10:30 | Outpatient (RCR) | payer OTHER, SELFPAY ==
--- NOTE | 2019-06-22 15:18 | PT.OIE ---
Current Diagnoses Lymphedema, not elsewhere classified (06/22/19) Other specified soft tissue disorders (06/22/19) Past Medical History (Last Reviewed 05/27/19 @ 16:16 by LEAH Macdonald) Anxiety (Chronic 02/01/16) Bursitis, shoulder (Chronic) Cataract (Resolved 2014) Chicken pox (Resolved) Chronic headaches (Chronic) Chronic interstitial cystitis (Chronic 02/01/16) Depression (Chronic) Depression (Chronic) Eczema (Chronic 1989) Edema (Chronic 02/01/16) Essential hypertension (Chronic 02/01/16) Fractures (Resolved 2004) Gastroesophageal reflux disease without esophagitis (Chronic 1999) Hearing loss (Chronic 2012) Hemorrhoids (Chronic 1989) History of heavy periods (Resolved) Insomnia (Chronic 02/01/16) Measles (Resolved 1963) Migraines (Chronic) Mumps (Resolved) Osteopenia (Chronic 2015) Rubella (Resolved 1963) Skin cancer (Resolved) Tinnitus (Chronic 2012) Urinary incontinence (Chronic 2011) Past Surgical History (Last Reviewed 05/27/19 @ 16:16 by LEAH Macdonald) Anesthesia (Resolved) History of arm fracture (Resolved ~194) History of cataract removal with insertion of prosthetic lens (Resolved 01/2016) History of tonsillectomy (Resolved ~194) Visit Care Team Role Provider Type Rebecca Webber MD Attending Provider Physician Primary Care Provider Referring Provider Specialty: [facility] Address: [address] [place] [address], [facility] Email: [email or web address] Physical Therapy Initial Evaluation PT-OP-A Visit Information Start: 05/06/19 10:40 Freq: Status: Active Protocol: Document 06/22/19 09:06 SAK (Rec: 06/22/19 13:07 SAK [id number]) Out-Patient Physical Therapy Visit Information Visit Information Visit Type Initial Evaluation Visit Start Time 09:00 Visit Stop Time 10:30 Total Visit Minutes 90 Visit Number 1 Evaluation Information Evaluation Date 06/22/19 Precautions Precautions history of arthritis, back pain, falls,headaches PT-OP-B Current Condition Start: 05/06/19 10:40 Freq: Status: Active Protocol: Document 06/22/19 09:06 SAK (Rec: 06/22/19 13:07 SAK [id number]) Current Condition History of Current Condition Onset Date 10 yrs ago Current Complaints bilateral LE edema History of Current Condition Reports 10 year history of worsening bilateral LE, initially starting edema lateral right lateral LE edema . Was first given diuretic wasn't helpful, edema gradually worsening, now moving up higher in her upper legs legs. Has knee high compression stockings 20-30 mm Hg but reports not helpful. Has not worn thigh high. 1 episode of cellulitis right LE approx 2 years ago. Minimal decrease swelling with elevation. Is frustrated by continued worsening of her edema and lack of effective treatment for it. Reports legs feel heavy and cause increasing difficulty with her mobility Prior Treatments and Tests negative for DVT Treatment Goals Patient/Caregiver Goals Decrease LE swelling to improve her quality of life Prior Functional Status Baseline Function- ADL's Independent Baseline Function- Mobility Independent Baseline Function- Gait independent Current Functional Impairments (Reported) Functional Limitations- ADL's Takes more time, LE's heavy Functional Limitations- Mobility/Gait limited to household, short distance community Personal Factors Other Personal Factors That May Effect Helps to care for her Therapy/Recovery who has dementia PT-OP-F Manual Assessment Start: 05/06/19 10:40 Freq: Status: Active Protocol: Document 06/22/19 09:06 [facility] (Rec: 06/22/19 13:07 [facility] [id number]) Manual Assessments Soft Tissue Assessment Soft Tissue Mobility Assessment No palpable soft tissue fibrosis. PT-OP-J Posture/Palpation/Skin Start: 05/06/19 10:40 Freq: Status: Active Protocol: Document 06/22/19 09:06 [facility] (Rec: 06/22/19 13:07 [facility] [id number]) Palpation Assessment Location bilateral LE Palpation Findings Edema Palpation Details no palpable tissue fibrosis, right LE more swollen than left. Stemmer sign negative. Non-pitting PT-OP-N Lymphedema Start: 05/06/19 10:40 Freq: Status: Active Protocol: Document 06/22/19 09:06 [facility] (Rec: 06/22/19 13:07 [facility] [id number]) Lymphedema Measurements Lower Extremity Circumference Measurements Left MT Heads 22 cm Medial Malleolus 27.5 cm 10 cm From Medial Malleolus 37.3 cm 20 cm From Medial Malleolus 46.4 cm 30 cm From Medial Malleolus 49.9 cm 40 cm From Medial Malleolus 47.9 cm 50 cm From Medial Malleolus 56.4 cm 60 cm From Medial Malleolus 65.7 cm 70 cm From Medial Malleolus 72.9 cm 80 cm From Medial Malleolus 79.5 cm right MT Heads 23.5 cm Medial Malleolus 28.4 cm 10 cm From Medial Malleolus 35.3 cm 20 cm From Medial Malleolus 44.2 cm 30 cm From Medial Malleolus 49 cm 40 cm From Medial Malleolus 48.5 cm 50 cm From Medial Malleolus 57.9 cm 60 cm From Medial Malleolus 68.6 cm 70 cm From Medial Malleolus 78.9 cm 80 cm From Medial Malleolus 88.4 cm PT-OP-Q Treatments Start: 05/06/19 10:40 Freq: Status: Active Protocol: Document 06/22/19 09:06 KEITH (Rec: 06/22/19 13:32 [facility] [id number]) Lymphedema Treatment Manual Lymphatic Drainage Comments No MLD due to time constraints but Lymphoderm lotion applied to bilateral LE's and importance of skin care stressed Lymphedema Wrapping Body Location bilateral LE's Materials Artiflex and Comprilan MTP's to upper thighs Other Patient instructed to remove wraps if uncomfortable, toes purple Sequential Lymphedema Exercises Comments instructed to perform ankle pumps, LAQ, marching, hip IR/ ER Patient Education Sequential Lymphedema Exercises verbal instruction Other instructed in importance of skin care PT-OP-T Assessment and Plan Start: 05/06/19 10:40 Freq: Status: Active Protocol: Document 06/22/19 09:06 KEITH (Rec: 06/22/19 13:07 KEITH [id number]) Physical Therapy Assessment Rehab Potential Rehabilitation Potential Good Evaluation Complexity Number of Personal Factors/Comorbidities 1-2 Number of Body Systems Impaired 3 Clinical Presentation at Evaluation Evolving Impairments Impairments Edema,Functional Mobility Goals 4 Impairment Lymphedema life impact scale Group Home Goal (LTG) reduce lymphedema life impact scale by 50% LTG Duration 08/06/19 3 Impairment decline in functional mobility Group Home Goal (LTG) Patient to report a return to prior level of mobility within her home and the community, including ability to take walks of at least 15 minutes for purposes of community mobility LTG Duration 08/06/19 2 Impairment knowledge deficit Short Term Goal (STG) Patient will be instructed in all aspects of self-management for edema including skin care , self-wrapping, self-massage, lymphedema exercises STG Duration 07/06/19 Flower Grower Goal (LTG) Patient to be fit with appropriate compression garment and be able to don and doff, and demonstrate good understanding and independence with all aspects of edema management. 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 Recommended treatment is complete decongestive therapy to help reduce the lymphedema component of her edema as much as possible and have her fit with appropriate compression garment which I feel is panty- hose style at 30-40mm Hg. Without appropriate treatment this patient is at high risk for further worsening of her edema with potential complications to include cellulitis (has history of 1 episode), continued decline in mobility, and potential for wounds. She is highly motivated and receptive to treatment which this date consisted of lymphedema wrapping bilateral LE's. With treatment feel we can reduce her edema, educate her in self care, and get her fit with appropriate compression stockings to decrease risk of complications and improve her mobility and quality of life. Physical Therapy Plan Frequency and Duration Frequency of Treatment 12 visits x 6 wks Duration of Treatment 6 wks Plan of Care Start Date 06/22/19 Plan of Care End Date 08/06/19 Therapeutic Interventions Therapeutic Interventions Lymphedema Management,Manual Therapy,Patient/Caregiver Education,Self-Care/Home Management,Therapeutic Exercises Next Visit Focus/Plan Next Note Type Treatment Note Next Visit Plan Evaluate response to lymphedema wrapping, continue CDT.
--- NOTE | 2019-06-22 15:19 | PT.OPPOC ---
Physical, Occupational & Speech Therapy At [facility] Current Diagnoses Lymphedema, not elsewhere classified (06/22/19) Other specified soft tissue disorders (06/22/19) Visit Care Team Role Provider Type Rebecca Webber MD Attending Provider Physician Primary Care Provider Referring Provider Specialty: [facility] Practice Address: [address] [place] [address], [employer] Email: [email or web address] Plan Of Care PT-OP-T Assessment and Plan Start: 05/06/19 10:40 Freq: Status: Active Protocol: Document 06/22/19 09:06 KEITH (Rec: 06/22/19 13:07 KEITH [id number]) Physical Therapy Assessment Rehab Potential Rehabilitation Potential Good Evaluation Complexity Number of Personal Factors/Comorbidities 1-2 Number of Body Systems Impaired 3 Clinical Presentation at Evaluation Evolving Impairments Impairments Edema,Functional Mobility Goals 4 Impairment Lymphedema life impact scale Fpc Goal (LTG) reduce lymphedema life impact scale by 50% LTG Duration 08/06/19 3 Impairment decline in functional mobility Gas Stove Servicer Helper Goal (LTG) Patient to report a return to prior level of mobility within her home and the community, including ability to take walks of at least 15 minutes for purposes of community mobility LTG Duration 08/06/19 2 Impairment knowledge deficit Short Term Goal (STG) Patient will be instructed in all aspects of self-management for edema including skin care , self-wrapping, self-massage, lymphedema exercises STG Duration 07/06/19 [facility] Goal (LTG) Patient to be fit with appropriate compression garment and be able to don and doff, and demonstrate good understanding and independence with all aspects of edema management. 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 Recommended treatment is complete decongestive therapy to help reduce the lymphedema component of her edema as much as possible and have her fit with appropriate compression garment which I feel is panty- hose style at 30-40mm Hg. Without appropriate treatment this patient is at high risk for further worsening of her edema with potential complications to include cellulitis (has history of 1 episode), continued decline in mobility, and potential for wounds. She is highly motivated and receptive to treatment which this date consisted of lymphedema wrapping bilateral LE's. With treatment feel we can reduce her edema, educate her in self care, and get her fit with appropriate compression stockings to decrease risk of complications and improve her mobility and quality of life. Physical Therapy Plan Frequency and Duration Frequency of Treatment 12 visits x 6 wks Duration of Treatment 6 wks Plan of Care Start Date 06/22/19 Plan of Care End Date 08/06/19 Therapeutic Interventions Therapeutic Interventions Lymphedema Management,Manual Therapy,Patient/Caregiver Education,Self-Care/Home Management,Therapeutic Exercises Next Visit Focus/Plan Next Note Type Treatment Note Next Visit Plan Evaluate response to lymphedema wrapping, continue CDT. Plan of Care Dates Plan of Care Start Date 06/22/19 Plan of Care End Date 08/06/19 Electronically Signed by: Fannie Hernandes, PT 06/22/19 [id number] Please Sign and Return: I have reviewed this Plan of Care and certify that the skilled therapy services above are required to meet the patient?s needs. Physician Signature Date Printed Name and Credentials Clinical Instructor Signature Printed Name and Credentials
--- NOTE | 2019-06-24 14:58 | PT.OTN ---
Current Diagnoses Lymphedema, not elsewhere classified (06/24/19) Other specified soft tissue disorders (06/24/19) Physical Therapy Treatment Note PT-OP-A Visit Information Start: 05/06/19 10:40 Freq: Status: Active Protocol: Document 06/24/19 14:39 SAK (Rec: 06/24/19 14:57 [facility] [id number]) Out-Patient Physical Therapy Visit Information Visit Information Visit Type Treatment Note Visit Start Time 09:00 Visit Stop Time 10:30 Total Visit Minutes 90 Visit Number 2 Evaluation Information Evaluation Date 06/24/19 Precautions Precautions history of arthritis, back pain, falls,headaches PT-OP-B Current Condition Start: 05/06/19 10:40 Freq: Status: Active Protocol: Document 06/24/19 14:39 SAK (Rec: 06/24/19 14:57 [facility] [id number]) Current Condition History of Current Condition Onset Date 10 yrs ago Current Complaints bilateral LE edema History of Current Condition Reports 10 year history of worsening bilateral LE, initially starting edema lateral right lateral LE edema . Was first given diuretic wasn't helpful, edema gradually worsening, now moving up higher in her upper legs legs. Has knee high compression stockings 20-30 mm Hg but reports not helpful. Has not worn thigh high. 1 episode of cellulitis right LE approx 2 years ago. Minimal decrease swelling with elevation. Is frustrated by continued worsening of her edema and lack of effective treatment for it. Reports legs feel heavy and cause increasing difficulty with her mobility Prior Treatments and Tests negative for DVT Treatment Goals Patient/Caregiver Goals Decrease LE swelling to improve her quality of life PT-OP-C Subjective Start: 05/06/19 10:40 Freq: Status: Active Protocol: Document 06/24/19 14:39 SAK (Rec: 06/24/19 14:57 [facility] [id number]) OP-PT Subjective Patient Comments Patient Comments Reports wraps slid down on thighs, felt good on lower legs. Brought and caregiver to observe, for training. PT-OP-F Manual Assessment Start: 05/06/19 10:40 Freq: Status: Active Protocol: Document 06/22/19 09:06 SAK (Rec: 06/22/19 13:07 SAK [id number]) Manual Assessments Soft Tissue Assessment Soft Tissue Mobility Assessment No palpable soft tissue fibrosis. PT-OP-J Posture/Palpation/Skin Start: 05/06/19 10:40 Freq: Status: Active Protocol: Document 06/22/19 09:06 [facility] (Rec: 06/22/19 13:07 [facility] [id number]) Palpation Assessment Location bilateral LE Palpation Findings Edema Palpation Details no palpable tissue fibrosis, right LE more swollen than left. Stemmer sign negative. Non-pitting PT-OP-N Lymphedema Start: 05/06/19 10:40 Freq: Status: Active Protocol: Document 06/22/19 09:06 [facility] (Rec: 06/22/19 13:07 [facility] [id number]) Lymphedema Measurements Lower Extremity Circumference Measurements Left MT Heads 22 cm Medial Malleolus 27.5 cm 10 cm From Medial Malleolus 37.3 cm 20 cm From Medial Malleolus 46.4 cm 30 cm From Medial Malleolus 49.9 cm 40 cm From Medial Malleolus 47.9 cm 50 cm From Medial Malleolus 56.4 cm 60 cm From Medial Malleolus 65.7 cm 70 cm From Medial Malleolus 72.9 cm 80 cm From Medial Malleolus 79.5 cm right MT Heads 23.5 cm Medial Malleolus 28.4 cm 10 cm From Medial Malleolus 35.3 cm 20 cm From Medial Malleolus 44.2 cm 30 cm From Medial Malleolus 49 cm 40 cm From Medial Malleolus 48.5 cm 50 cm From Medial Malleolus 57.9 cm 60 cm From Medial Malleolus 68.6 cm 70 cm From Medial Malleolus 78.9 cm 80 cm From Medial Malleolus 88.4 cm PT-OP-Q Treatments Start: 05/06/19 10:40 Freq: Status: Active Protocol: Document 06/24/19 14:39 [facility] (Rec: 06/24/19 14:57 [facility] [id number]) Lymphedema Treatment Manual Lymphatic Drainage Location MLD bilateral LE's supine and sidelying Duration 40 Lymphedema Wrapping Body Location bilateral LE's Materials Artiflex and Comprilan MTP's to upper thighs Other Patient instructed to remove wraps if uncomfortable, toes purple Sequential Lymphedema Exercises Comments reviewed HEP: ankle pumps, LAQ , marching, hip IR/ER Patient Education Lymphedema Pathology verbal and use of posters Lymphedema Prevention verbal instructions Lymphedema Precautions verbal instruction Compression Garments options discussed Other Other Education of caregiver in importance of skin care, demonstrated home wrapping and written handout given. PT-OP-T Assessment and Plan Start: 05/06/19 10:40 Freq: Status: Active Protocol: Document 06/24/19 14:39 KEITH (Rec: 06/24/19 14:57 [facility] [id number]) Physical Therapy Assessment Goals 4 Impairment Lymphedema life impact scale Technical Writer Goal (LTG) reduce lymphedema life impact scale by 50% LTG Duration 08/06/19 3 Impairment decline in functional mobility Long-Term Goal (LTG) Patient to report a return to prior level of mobility within her home and the community, including ability to take walks of at least 15 minutes for purposes of community mobility LTG Duration 08/06/19 2 Impairment knowledge deficit Short Term Goal (STG) Patient will be instructed in all aspects of self-management for edema including skin care , self-wrapping, self-massage, lymphedema exercises STG Duration 07/06/19 Technical Writer Goal (LTG) Patient to be fit with appropriate compression garment and be able to don and doff, and demonstrate good understanding and independence with all aspects of edema management. LTG Duration 08/06/19 1 Impairment edema bilateral LE's Technical Writer Goal (LTG) Decrease and stabilize LE lymphedema (no increase or decrease of circumferential measurements greater than 1 cm over the course of 1 week) LTG Duration 08/06/19 Physical Therapy Plan Frequency and Duration Frequency of Treatment 12 visits x 6 wks Duration of Treatment 6 wks Plan of Care Start Date 06/22/19 Plan of Care End Date 08/06/19 Therapeutic Interventions Therapeutic Interventions Lymphedema Management,Manual Therapy,Patient/Caregiver Education,Self-Care/Home Management,Therapeutic Exercises Next Visit Focus/Plan Next Note Type Treatment Note Next Visit Plan Circumferential measurements, assess ability of caregiver to wrap LE's, further discussion of compression options. Continue to educate regarding self-care.
--- NOTE | 2019-06-30 16:30 | PT.OTN ---
Current Diagnoses Lymphedema, not elsewhere classified (06/29/19) Other specified soft tissue disorders (06/29/19) Physical Therapy Treatment Note PT-OP-A Visit Information Start: 05/06/19 10:40 Freq: Status: Active Protocol: Document 06/29/19 16:36 SAK (Rec: 06/30/19 16:29 [facility] [id number]) Out-Patient Physical Therapy Visit Information Visit Information Visit Type Treatment Note Visit Start Time 13:45 Visit Stop Time 15:15 Total Visit Minutes 90 Visit Number 3 Evaluation Information Evaluation Date 06/24/19 Precautions Precautions history of arthritis, back pain, falls,headaches PT-OP-B Current Condition Start: 05/06/19 10:40 Freq: Status: Active Protocol: Document 06/24/19 14:39 SAK (Rec: 06/24/19 14:57 [facility] [id number]) Current Condition History of Current Condition Onset Date 10 yrs ago Current Complaints bilateral LE edema History of Current Condition Reports 10 year history of worsening bilateral LE, initially starting edema lateral right lateral LE edema . Was first given diuretic wasn't helpful, edema gradually worsening, now moving up higher in her upper legs legs. Has knee high compression stockings 20-30 mm Hg but reports not helpful. Has not worn thigh high. 1 episode of cellulitis right LE approx 2 years ago. Minimal decrease swelling with elevation. Is frustrated by continued worsening of her edema and lack of effective treatment for it. Reports legs feel heavy and cause increasing difficulty with her mobility Prior Treatments and Tests negative for DVT Treatment Goals Patient/Caregiver Goals Decrease LE swelling to improve her quality of life PT-OP-C Subjective Start: 05/06/19 10:40 Freq: Status: Active Protocol: Document 06/29/19 16:36 SAK (Rec: 06/30/19 16:29 [facility] [id number]) OP-PT Subjective Patient Comments Patient Comments Improved wrapping at home, reports feels swelling went down. Removed wraps last night, hasn't had back on since. PT-OP-F Manual Assessment Start: 05/06/19 10:40 Freq: Status: Active Protocol: Document 06/22/19 09:06 SAK (Rec: 06/22/19 13:07 [facility] [id number]) Manual Assessments Soft Tissue Assessment Soft Tissue Mobility Assessment No palpable soft tissue fibrosis. PT-OP-J Posture/Palpation/Skin Start: 05/06/19 10:40 Freq: Status: Active Protocol: Document 06/22/19 09:06 [facility] (Rec: 06/22/19 13:07 [facility] [id number]) Palpation Assessment Location bilateral LE Palpation Findings Edema Palpation Details no palpable tissue fibrosis, right LE more swollen than left. Stemmer sign negative. Non-pitting PT-OP-N Lymphedema Start: 05/06/19 10:40 Freq: Status: Active Protocol: Document 06/29/19 16:36 [facility] (Rec: 06/30/19 16:29 [facility] [id number]) Lymphedema Measurements Lower Extremity Circumference Measurements Left MT Heads 23 cm Medial Malleolus 27.7 cm 10 cm From Medial Malleolus 36.2 cm 20 cm From Medial Malleolus 45.3 cm 30 cm From Medial Malleolus 49.2 cm 40 cm From Medial Malleolus 47 cm 50 cm From Medial Malleolus 56.1 cm 60 cm From Medial Malleolus 65.2 cm 70 cm From Medial Malleolus 73.5 cm 80 cm From Medial Malleolus 79.5 cm right MT Heads 23.4 cm Medial Malleolus 27 cm 10 cm From Medial Malleolus 33.4 cm 20 cm From Medial Malleolus 42.9 cm 30 cm From Medial Malleolus 47 cm 40 cm From Medial Malleolus 49.5 cm 50 cm From Medial Malleolus 59 cm 60 cm From Medial Malleolus 69 cm 70 cm From Medial Malleolus 78.4 cm 80 cm From Medial Malleolus 87.5 cm PT-OP-Q Treatments Start: 05/06/19 10:40 Freq: Status: Active Protocol: Document 06/29/19 16:36 [facility] (Rec: 06/30/19 16:29 [facility] [id number]) Lymphedema Treatment Manual Lymphatic Drainage Location MLD bilateral LE's supine and sidelying Duration 40 Lymphedema Wrapping Body Location bilateral LE's Materials Artiflex and Comprilan MTP's to upper thighs (Cetaphil applied prior for skin care) Other Patient instructed to remove wraps if uncomfortable, toes purple Sequential Lymphedema Exercises Comments Issued written handout after review Patient Education Compression Garments further discussion, due to reduction continue wrapping PT-OP-T Assessment and Plan Start: 05/06/19 10:40 Freq: Status: Active Protocol: Document 06/29/19 16:36 [facility] (Rec: 06/30/19 16:29 [facility] [id number]) Physical Therapy Assessment Goals 4 Impairment Lymphedema life impact scale Custodial Goal (LTG) reduce lymphedema life impact scale by 50% LTG Duration 08/06/19 3 Impairment decline in functional mobility [employer] Structural [employer] Fitter Goal (LTG) Patient to report a return to prior level of mobility within her home and the community, including ability to take walks of at least 15 minutes for purposes of community mobility LTG Duration 08/06/19 2 Impairment knowledge deficit Short Term Goal (STG) Patient will be instructed in all aspects of self-management for edema including skin care , self-wrapping, self-massage, lymphedema exercises STG Duration 07/06/19 Custodial Goal (LTG) Patient to be fit with appropriate compression garment and be able to don and doff, and demonstrate good understanding and independence with all aspects of edema management. LTG Duration 08/06/19 1 Impairment edema bilateral LE's Custodial Goal (LTG) Decrease and stabilize LE lymphedema (no increase or decrease of circumferential measurements greater than 1 cm over the course of 1 week) LTG Duration 08/06/19 Assessment Summary Assessment Reduction achieved in bilateral LE's especially lower legs, potential for further reduction with current treatment, especially if doesn't leave wraps off; reviewed need to keep wrapped 24/7 at this time for best reduction; patient and caregiver demonstrated good understanding. Physical Therapy Plan Frequency and Duration Frequency of Treatment 12 visits x 6 wks Duration of Treatment 6 wks Plan of Care Start Date 06/22/19 Plan of Care End Date 08/06/19 Therapeutic Interventions Therapeutic Interventions Lymphedema Management,Manual Therapy,Patient/Caregiver Education,Self-Care/Home Management,Therapeutic Exercises Next Visit Focus/Plan Next Note Type Treatment Note Next Visit Plan Show compression alternative wrap, continue lymphedema management. Review self care, home program for lymphedema management.
--- NOTE | 2019-07-01 15:57 | PT.OTN ---
Current Diagnoses Lymphedema, not elsewhere classified (07/01/19) Other specified soft tissue disorders (07/01/19) Physical Therapy Treatment Note PT-OP-A Visit Information Start: 05/06/19 10:40 Freq: Status: Active Protocol: Document 07/01/19 15:43 SAK (Rec: 07/01/19 15:57 [facility] [id number]) Out-Patient Physical Therapy Visit Information Visit Information Visit Type Treatment Note Visit Start Time 13:00 Visit Stop Time 14:30 Total Visit Minutes 90 Visit Number 4 Evaluation Information Evaluation Date 06/24/19 Precautions Precautions history of arthritis, back pain, falls,headaches PT-OP-B Current Condition Start: 05/06/19 10:40 Freq: Status: Active Protocol: Document 06/24/19 14:39 SAK (Rec: 06/24/19 14:57 [facility] [id number]) Current Condition History of Current Condition Onset Date 10 yrs ago Current Complaints bilateral LE edema History of Current Condition Reports 10 year history of worsening bilateral LE, initially starting edema lateral right lateral LE edema . Was first given diuretic wasn't helpful, edema gradually worsening, now moving up higher in her upper legs legs. Has knee high compression stockings 20-30 mm Hg but reports not helpful. Has not worn thigh high. 1 episode of cellulitis right LE approx 2 years ago. Minimal decrease swelling with elevation. Is frustrated by continued worsening of her edema and lack of effective treatment for it. Reports legs feel heavy and cause increasing difficulty with her mobility Prior Treatments and Tests negative for DVT Treatment Goals Patient/Caregiver Goals Decrease LE swelling to improve her quality of life PT-OP-C Subjective Start: 05/06/19 10:40 Freq: Status: Active Protocol: Document 07/01/19 15:43 SAK (Rec: 07/01/19 15:57 [facility] [id number]) OP-PT Subjective Patient Comments Patient Comments Left her LE's wrapped after PT last session, overall felt they were still effective and didn't want to have to rewrap. PT-OP-F Manual Assessment Start: 05/06/19 10:40 Freq: Status: Active Protocol: Document 06/22/19 09:06 SAK (Rec: 06/22/19 13:07 SAK [id number]) Manual Assessments Soft Tissue Assessment Soft Tissue Mobility Assessment No palpable soft tissue fibrosis. PT-OP-J Posture/Palpation/Skin Start: 05/06/19 10:40 Freq: Status: Active Protocol: Document 06/22/19 09:06 SAK (Rec: 06/22/19 13:07 [facility] [id number]) Palpation Assessment Location bilateral LE Palpation Findings Edema Palpation Details no palpable tissue fibrosis, right LE more swollen than left. Stemmer sign negative. Non-pitting PT-OP-N Lymphedema Start: 05/06/19 10:40 Freq: Status: Active Protocol: Document 07/01/19 15:43 [facility] (Rec: 07/01/19 15:57 [facility] [id number]) Lymphedema Measurements Lower Extremity Circumference Measurements Left MT Heads 22 cm Medial Malleolus 26.7 cm 10 cm From Medial Malleolus 36.1 cm 20 cm From Medial Malleolus 44 cm 30 cm From Medial Malleolus 49.2 cm 40 cm From Medial Malleolus 45.6 cm 50 cm From Medial Malleolus 56.3 cm 60 cm From Medial Malleolus 65 cm 70 cm From Medial Malleolus 72.7 cm 80 cm From Medial Malleolus 80.5 cm right MT Heads 23.5 cm Medial Malleolus 25.2 cm 10 cm From Medial Malleolus 33.4 cm 20 cm From Medial Malleolus 42.9 cm 30 cm From Medial Malleolus 47 cm 40 cm From Medial Malleolus 47.5 cm 50 cm From Medial Malleolus 58 cm 60 cm From Medial Malleolus 69 cm 70 cm From Medial Malleolus 79.1 cm 80 cm From Medial Malleolus 86.3 cm PT-OP-Q Treatments Start: 05/06/19 10:40 Freq: Status: Active Protocol: Document 07/01/19 15:43 [facility] (Rec: 07/01/19 15:57 [facility] [id number]) Lymphedema Treatment Manual Lymphatic Drainage Location MLD bilateral LE's supine and sidelying Duration 40 Lymphedema Wrapping Body Location bilateral LE's Materials Artiflex and Comprilan MTP's to upper thighs (Cetaphil applied prior for skin care) Other Patient instructed to remove wraps if uncomfortable, toes purple Sequential Lymphedema Exercises Location bilateral LE's Comments Sci-Fit recumbant elliptical x 10 min L1 to facilitate further lymphatic flow after MLD and lymphedema wrapping. Patient Education Compression Garments shown sample of compression alternative. Other Other Continued education of caregiver in lymphedema wrapping. PT-OP-T Assessment and Plan Start: 05/06/19 10:40 Freq: Status: Active Protocol: Document 07/01/19 15:43 [facility] (Rec: 07/01/19 15:57 [facility] [id number]) Physical Therapy Assessment Goals 4 Impairment Lymphedema life impact scale Custodial Goal (LTG) reduce lymphedema life impact scale by 50% LTG Duration 08/06/19 3 Impairment decline in functional mobility Custodial Goal (LTG) Patient to report a return to prior level of mobility within her home and the community, including ability to take walks of at least 15 minutes for purposes of community mobility LTG Duration 08/06/19 2 Impairment knowledge deficit Short Term Goal (STG) Patient will be instructed in all aspects of self-management for edema including skin care , self-wrapping, self-massage, lymphedema exercises STG Duration 07/06/19 Manager Mail Goal (LTG) Patient to be fit with appropriate compression garment and be able to don and doff, and demonstrate good understanding and independence with all aspects of edema management. LTG Duration 08/06/19 1 Impairment edema bilateral LE's Custodial Goal (LTG) Decrease and stabilize LE lymphedema (no increase or decrease of circumferential measurements greater than 1 cm over the course of 1 week) LTG Duration 08/06/19 Assessment Summary Assessment Continued reduction in bilateral circumfrence in most measurements. Caregiver demonstrating improving understanding of lymphedema wrapping. Patient left wraps on until PT session today per instruction. Good tolerance for Sci-Fit. Physical Therapy Plan Frequency and Duration Frequency of Treatment 12 visits x 6 wks Duration of Treatment 6 wks Plan of Care Start Date 06/22/19 Plan of Care End Date 08/06/19 Therapeutic Interventions Therapeutic Interventions Lymphedema Management,Manual Therapy,Patient/Caregiver Education,Self-Care/Home Management,Therapeutic Exercises Next Visit Focus/Plan Next Note Type Treatment Note Next Visit Plan Continue lymphedema management . Refer for compression garment/compression alternative when measurements stable.
--- NOTE | 2019-07-06 13:25 | PT-OP ANOTE ---
DNS for PT appointment
--- NOTE | 2019-07-06 15:54 | PT.OTN ---
Current Diagnoses Lymphedema, not elsewhere classified (07/06/19) Other specified soft tissue disorders (07/06/19) Physical Therapy Treatment Note PT-OP-A Visit Information Start: 05/06/19 10:40 Freq: Status: Active Protocol: Document 07/06/19 15:41 SAK (Rec: 07/06/19 15:53 SAK [id number]) Out-Patient Physical Therapy Visit Information Visit Information Visit Type Treatment Note Visit Note Patient arrived at wrong appointment time but was able to be seen due to other cancellation for this PT. Visit Start Time 13:50 Visit Stop Time 15:20 Total Visit Minutes 90 Visit Number 5 Evaluation Information Evaluation Date 06/24/19 Precautions Precautions history of arthritis, back pain, falls,headaches PT-OP-B Current Condition Start: 05/06/19 10:40 Freq: Status: Active Protocol: Document 06/24/19 14:39 SAK (Rec: 06/24/19 14:57 SAK [id number]) Current Condition History of Current Condition Onset Date 10 yrs ago Current Complaints bilateral LE edema History of Current Condition Reports 10 year history of worsening bilateral LE, initially starting edema lateral right lateral LE edema . Was first given diuretic wasn't helpful, edema gradually worsening, now moving up higher in her upper legs legs. Has knee high compression stockings 20-30 mm Hg but reports not helpful. Has not worn thigh high. 1 episode of cellulitis right LE approx 2 years ago. Minimal decrease swelling with elevation. Is frustrated by continued worsening of her edema and lack of effective treatment for it. Reports legs feel heavy and cause increasing difficulty with her mobility Prior Treatments and Tests negative for DVT Treatment Goals Patient/Caregiver Goals Decrease LE swelling to improve her quality of life PT-OP-C Subjective Start: 05/06/19 10:40 Freq: Status: Active Protocol: Document 07/06/19 15:41 SAK (Rec: 07/06/19 15:53 SAK [id number]) OP-PT Subjective Patient Comments Patient Comments Patient reports caregiver wrapped her LE's 2x since last seen for PT, not sure how they did. PT-OP-F Manual Assessment Start: 05/06/19 10:40 Freq: Status: Active Protocol: Document 06/22/19 09:06 SAK (Rec: 06/22/19 13:07 SAK [id number]) Manual Assessments Soft Tissue Assessment Soft Tissue Mobility Assessment No palpable soft tissue fibrosis. PT-OP-J Posture/Palpation/Skin Start: 05/06/19 10:40 Freq: Status: Active Protocol: Document 06/22/19 09:06 [facility] (Rec: 06/22/19 13:07 [facility] [id number]) Palpation Assessment Location bilateral LE Palpation Findings Edema Palpation Details no palpable tissue fibrosis, right LE more swollen than left. Stemmer sign negative. Non-pitting PT-OP-N Lymphedema Start: 05/06/19 10:40 Freq: Status: Active Protocol: Document 07/06/19 15:41 [facility] (Rec: 07/06/19 15:53 [facility] [id number]) Lymphedema Measurements Lower Extremity Circumference Measurements Left MT Heads 23 cm Medial Malleolus 28.4 cm 10 cm From Medial Malleolus 37.6 cm 20 cm From Medial Malleolus 45.3 cm 30 cm From Medial Malleolus 49.1 cm 40 cm From Medial Malleolus 47 cm 50 cm From Medial Malleolus 55.7 cm 60 cm From Medial Malleolus 66.4 cm 70 cm From Medial Malleolus 71.4 cm 80 cm From Medial Malleolus 79.1 cm right MT Heads 24 cm Medial Malleolus 27 cm 10 cm From Medial Malleolus 34 cm 20 cm From Medial Malleolus 42.1 cm 30 cm From Medial Malleolus 47 cm 40 cm From Medial Malleolus 51.4 cm 50 cm From Medial Malleolus 60.6 cm 60 cm From Medial Malleolus 71.3 cm 70 cm From Medial Malleolus 71 cm 80 cm From Medial Malleolus 82.5 cm PT-OP-Q Treatments Start: 05/06/19 10:40 Freq: Status: Active Protocol: Document 07/06/19 15:41 [facility] (Rec: 07/06/19 15:53 [facility] [id number]) Lymphedema Treatment Manual Lymphatic Drainage Location MLD bilateral LE's supine and sidelying Duration 40 Lymphedema Wrapping Body Location bilateral LE's Materials Artiflex and Comprilan MTP's to upper thighs (Cetaphil applied prior for skin care) Other Patient instructed to remove wraps if uncomfortable, toes purple Sequential Lymphedema Exercises Location bilateral LE's Comments Sci-Fit recumbant elliptical x 10 min L1 to facilitate further lymphatic flow after MLD and lymphedema wrapping. Other Other Education of patient to not have feet looser than rest of wraps because swelling was pushed into her feet as evidenced visually and with circumferential measurements today. Wraps overall were too lose causing increase in measurements PT-OP-T Assessment and Plan Start: 05/06/19 10:40 Freq: Status: Active Protocol: Document 07/06/19 15:41 SAK (Rec: 07/06/19 15:53 [facility] [id number]) Physical Therapy Assessment Goals 4 Impairment Lymphedema life impact scale Prison Goal (LTG) reduce lymphedema life impact scale by 50% LTG Duration 08/06/19 3 Impairment decline in functional mobility Prison Goal (LTG) Patient to report a return to prior level of mobility within her home and the community, including ability to take walks of at least 15 minutes for purposes of community mobility LTG Duration 08/06/19 2 Impairment knowledge deficit Short Term Goal (STG) Patient will be instructed in all aspects of self-management for edema including skin care , self-wrapping, self-massage, lymphedema exercises STG Duration 07/06/19 [facility] [employer] Goal (LTG) Patient to be fit with appropriate compression garment and be able to don and doff, and demonstrate good understanding and independence with all aspects of edema management. LTG Duration 08/06/19 1 Impairment edema bilateral LE's [facility] Goal (LTG) Decrease and stabilize LE lymphedema (no increase or decrease of circumferential measurements greater than 1 cm over the course of 1 week) LTG Duration 08/06/19 Assessment Summary Assessment Circumferential measurements increased since patient last seen due to lack of effective wrapping at home. Caregiver not able to come to appointment today. Able to get patient scheduled again tomorrow and caregiver will come. Feel more frequent visits to maximally reduce then get fit with compression alternatives will be very helpful. Physical Therapy Plan Frequency and Duration Frequency of Treatment 12 visits x 6 wks Duration of Treatment 6 wks Plan of Care Start Date 06/22/19 Plan of Care End Date 08/06/19 Therapeutic Interventions Therapeutic Interventions Lymphedema Management,Manual Therapy,Patient/Caregiver Education,Self-Care/Home Management,Therapeutic Exercises Next Visit Focus/Plan Next Note Type Treatment Note Next Visit Plan Continue lymphedema management . Local garment business closed for 2 weeks, this PT may do measurements to assist with order.
--- NOTE | 2019-07-07 14:53 | PT.OTN ---
Current Diagnoses Lymphedema, not elsewhere classified (07/07/19) Other specified soft tissue disorders (07/07/19) Physical Therapy Treatment Note PT-OP-A Visit Information Start: 05/06/19 10:40 Freq: Status: Active Protocol: Document 07/07/19 14:46 SAK (Rec: 07/07/19 14:53 [facility] [id number]) Out-Patient Physical Therapy Visit Information Visit Information Visit Type Treatment Note Visit Start Time 13:00 Visit Stop Time 14:30 Total Visit Minutes 90 Visit Number 6 Evaluation Information Evaluation Date 06/24/19 Precautions Precautions history of arthritis, back pain, falls,headaches PT-OP-B Current Condition Start: 05/06/19 10:40 Freq: Status: Active Protocol: Document 06/24/19 14:39 SAK (Rec: 06/24/19 14:57 SAK [id number]) Current Condition History of Current Condition Onset Date 10 yrs ago Current Complaints bilateral LE edema History of Current Condition Reports 10 year history of worsening bilateral LE, initially starting edema lateral right lateral LE edema . Was first given diuretic wasn't helpful, edema gradually worsening, now moving up higher in her upper legs legs. Has knee high compression stockings 20-30 mm Hg but reports not helpful. Has not worn thigh high. 1 episode of cellulitis right LE approx 2 years ago. Minimal decrease swelling with elevation. Is frustrated by continued worsening of her edema and lack of effective treatment for it. Reports legs feel heavy and cause increasing difficulty with her mobility Prior Treatments and Tests negative for DVT Treatment Goals Patient/Caregiver Goals Decrease LE swelling to improve her quality of life PT-OP-C Subjective Start: 05/06/19 10:40 Freq: Status: Active Protocol: Document 07/07/19 14:46 SAK (Rec: 07/07/19 14:53 [facility] [id number]) OP-PT Subjective Patient Comments Patient Comments States she feels her legs have gone down in swelling after yesterday's treatment. Caregiver present for PT session. PT-OP-F Manual Assessment Start: 05/06/19 10:40 Freq: Status: Active Protocol: Document 06/22/19 09:06 SAK (Rec: 06/22/19 13:07 SAK [id number]) Manual Assessments Soft Tissue Assessment Soft Tissue Mobility Assessment No palpable soft tissue fibrosis. PT-OP-J Posture/Palpation/Skin Start: 05/06/19 10:40 Freq: Status: Active Protocol: Document 06/22/19 09:06 [facility] (Rec: 06/22/19 13:07 [facility] [id number]) Palpation Assessment Location bilateral LE Palpation Findings Edema Palpation Details no palpable tissue fibrosis, right LE more swollen than left. Stemmer sign negative. Non-pitting PT-OP-N Lymphedema Start: 05/06/19 10:40 Freq: Status: Active Protocol: Document 07/06/19 15:41 [facility] (Rec: 07/06/19 15:53 [facility] [id number]) Lymphedema Measurements Lower Extremity Circumference Measurements Left MT Heads 23 cm Medial Malleolus 28.4 cm 10 cm From Medial Malleolus 37.6 cm 20 cm From Medial Malleolus 45.3 cm 30 cm From Medial Malleolus 49.1 cm 40 cm From Medial Malleolus 47 cm 50 cm From Medial Malleolus 55.7 cm 60 cm From Medial Malleolus 66.4 cm 70 cm From Medial Malleolus 71.4 cm 80 cm From Medial Malleolus 79.1 cm right MT Heads 24 cm Medial Malleolus 27 cm 10 cm From Medial Malleolus 34 cm 20 cm From Medial Malleolus 42.1 cm 30 cm From Medial Malleolus 47 cm 40 cm From Medial Malleolus 51.4 cm 50 cm From Medial Malleolus 60.6 cm 60 cm From Medial Malleolus 71.3 cm 70 cm From Medial Malleolus 71 cm 80 cm From Medial Malleolus 82.5 cm PT-OP-Q Treatments Start: 05/06/19 10:40 Freq: Status: Active Protocol: Document 07/07/19 14:46 [facility] (Rec: 07/07/19 14:53 [facility] [id number]) Lymphedema Treatment Manual Lymphatic Drainage Location MLD bilateral LE's supine and sidelying Duration 40 Lymphedema Wrapping Body Location bilateral LE's Materials Artiflex and Comprilan MTP's to upper thighs (Cetaphil applied prior for skin care) Other Patient instructed to remove wraps if uncomfortable, toes purple Sequential Lymphedema Exercises Location bilateral LE's Comments Sci-Fit recumbant elliptical x 10 min L1 to facilitate further lymphatic flow after MLD and lymphedema wrapping. Patient Education Other caregiver took video of PT doing lymphedema wrapping Other Other leave wraps on until PT appointment tomorrow, august measure for compression alternatives PT-OP-T Assessment and Plan Start: 05/06/19 10:40 Freq: Status: Active Protocol: Document 07/07/19 14:46 [facility] (Rec: 07/07/19 14:53 [facility] [id number]) Physical Therapy Assessment Goals 4 Impairment Lymphedema life impact scale Security Escort Goal (LTG) reduce lymphedema life impact scale by 50% LTG Duration 08/06/19 3 Impairment decline in functional mobility Security [employer]ort Goal (LTG) Patient to report a return to prior level of mobility within her home and the community, including ability to take walks of at least 15 minutes for purposes of community mobility LTG Duration 08/06/19 2 Impairment knowledge deficit Short Term Goal (STG) Patient will be instructed in all aspects of self-management for edema including skin care , self-wrapping, self-massage, lymphedema exercises STG Duration 07/06/19 [employer] Goal (LTG) Patient to be fit with appropriate compression garment and be able to don and doff, and demonstrate good understanding and independence with all aspects of edema management. LTG Duration 08/06/19 1 Impairment edema bilateral LE's [employer] Goal (LTG) Decrease and stabilize LE lymphedema (no increase or decrease of circumferential measurements greater than 1 cm over the course of 1 week) LTG Duration 08/06/19 Assessment Summary Assessment Reduction observable in bilateral LE's today. Did further education of caregiver including use of phone to video wrapping, she demonstrated good understanding. Physical Therapy Plan Frequency and Duration Frequency of Treatment 12 visits x 6 wks Duration of Treatment 6 wks Plan of Care Start Date 06/22/19 Plan of Care End Date 08/06/19 Therapeutic Interventions Therapeutic Interventions Lymphedema Management,Manual Therapy,Patient/Caregiver Education,Self-Care/Home Management,Therapeutic Exercises Next Visit Focus/Plan Next Note Type Treatment Note Next Visit Plan Circumferential measurements bilateral LE's for compression alternatives if edema continues reduction.
--- NOTE | 2019-07-08 16:02 | PT.OTN ---
Current Diagnoses Lymphedema, not elsewhere classified (07/08/19) Other specified soft tissue disorders (07/08/19) Physical Therapy Treatment Note PT-OP-A Visit Information Start: 05/06/19 10:40 Freq: Status: Active Protocol: Document 07/08/19 15:53 [facility]AK (Rec: 07/08/19 16:01 [facility] [id number]) Out-Patient Physical Therapy Visit Information Visit Information Visit Type Treatment Note Visit Start Time 13:45 Visit Stop Time 15:15 Total Visit Minutes 90 Visit Number 7 Evaluation Information Evaluation Date 06/24/19 Precautions Precautions history of arthritis, back pain, falls,headaches PT-OP-B Current Condition Start: 05/06/19 10:40 Freq: Status: Active Protocol: Document 06/24/19 14:39 SAK (Rec: 06/24/19 14:57 SAK [id number]) Current Condition History of Current Condition Onset Date 10 yrs ago Current Complaints bilateral LE edema History of Current Condition Reports 10 year history of worsening bilateral LE, initially starting edema lateral right lateral LE edema . Was first given diuretic wasn't helpful, edema gradually worsening, now moving up higher in her upper legs legs. Has knee high compression stockings 20-30 mm Hg but reports not helpful. Has not worn thigh high. 1 episode of cellulitis right LE approx 2 years ago. Minimal decrease swelling with elevation. Is frustrated by continued worsening of her edema and lack of effective treatment for it. Reports legs feel heavy and cause increasing difficulty with her mobility Prior Treatments and Tests negative for DVT Treatment Goals Patient/Caregiver Goals Decrease LE swelling to improve her quality of life PT-OP-C Subjective Start: 05/06/19 10:40 Freq: Status: Active Protocol: Document 07/08/19 15:53 SAK (Rec: 07/08/19 16:01 SAK [id number]) OP-PT Subjective Patient Comments Patient Comments No new c/o, reports wraps slide down on upper thighs pretty quickly but otherwise did well. Agreeable to be measured for compression alternatives. PT-OP-F Manual Assessment Start: 05/06/19 10:40 Freq: Status: Active Protocol: Document 06/22/19 09:06 SAK (Rec: 06/22/19 13:07 SAK [id number]) Manual Assessments Soft Tissue Assessment Soft Tissue Mobility Assessment No palpable soft tissue fibrosis. PT-OP-J Posture/Palpation/Skin Start: 05/06/19 10:40 Freq: Status: Active Protocol: Document 06/22/19 09:06 [facility] (Rec: 06/22/19 13:07 [facility] [id number]) Palpation Assessment Location bilateral LE Palpation Findings Edema Palpation Details no palpable tissue fibrosis, right LE more swollen than left. Stemmer sign negative. Non-pitting PT-OP-N Lymphedema Start: 05/06/19 10:40 Freq: Status: Active Protocol: Document 07/06/19 15:41 [facility] (Rec: 07/06/19 15:53 [facility] [id number]) Lymphedema Measurements Lower Extremity Circumference Measurements Left MT Heads 23 cm Medial Malleolus 28.4 cm 10 cm From Medial Malleolus 37.6 cm 20 cm From Medial Malleolus 45.3 cm 30 cm From Medial Malleolus 49.1 cm 40 cm From Medial Malleolus 47 cm 50 cm From Medial Malleolus 55.7 cm 60 cm From Medial Malleolus 66.4 cm 70 cm From Medial Malleolus 71.4 cm 80 cm From Medial Malleolus 79.1 cm right MT Heads 24 cm Medial Malleolus 27 cm 10 cm From Medial Malleolus 34 cm 20 cm From Medial Malleolus 42.1 cm 30 cm From Medial Malleolus 47 cm 40 cm From Medial Malleolus 51.4 cm 50 cm From Medial Malleolus 60.6 cm 60 cm From Medial Malleolus 71.3 cm 70 cm From Medial Malleolus 71 cm 80 cm From Medial Malleolus 82.5 cm PT-OP-Q Treatments Start: 05/06/19 10:40 Freq: Status: Active Protocol: Document 07/08/19 15:53 [facility] (Rec: 07/08/19 16:01 [facility] [id number]) Lymphedema Treatment Manual Lymphatic Drainage Location MLD bilateral LE's supine and sidelying Duration 40 Lymphedema Wrapping Body Location bilateral LE's Materials Artiflex and Comprilan MTP's to upper thighs (Cetaphil applied prior for skin care) Other Patient instructed to remove wraps if uncomfortable, toes purple Sequential Lymphedema Exercises Location bilateral LE's Comments Sci-Fit recumbant elliptical x 10 min L1 to facilitate further lymphatic flow after MLD and lymphedema wrapping. Other Other measurement for compression alternative, mesurements faxed to [employer]. PT-OP-T Assessment and Plan Start: 05/06/19 10:40 Freq: Status: Active Protocol: Document 07/08/19 15:53 [facility] (Rec: 07/08/19 16:01 SAK [id number]) Physical Therapy Assessment Goals 4 Impairment Lymphedema life impact scale [employer] Financial [employer]st Goal (LTG) reduce lymphedema life impact scale by 50% LTG Duration 08/06/19 3 Impairment decline in functional mobility Residential Goal (LTG) Patient to report a return to prior level of mobility within her home and the community, including ability to take walks of at least 15 minutes for purposes of community mobility LTG Duration 08/06/19 2 Impairment knowledge deficit Short Term Goal (STG) Patient will be instructed in all aspects of self-management for edema including skin care , self-wrapping, self-massage, lymphedema exercises STG Duration 07/06/19 [facility] Goal (LTG) Patient to be fit with appropriate compression garment and be able to don and doff, and demonstrate good understanding and independence with all aspects of edema management. LTG Duration 08/06/19 1 Impairment edema bilateral LE's [employer] Financial [employer]st Goal (LTG) Decrease and stabilize LE lymphedema (no increase or decrease of circumferential measurements greater than 1 cm over the course of 1 week) LTG Duration 08/06/19 Physical Therapy Plan Frequency and Duration Frequency of Treatment 12 visits x 6 wks Duration of Treatment 6 wks Plan of Care Start Date 06/22/19 Plan of Care End Date 08/06/19 Therapeutic Interventions Therapeutic Interventions Lymphedema Management,Manual Therapy,Patient/Caregiver Education,Self-Care/Home Management,Therapeutic Exercises Next Visit Focus/Plan Next Note Type Treatment Note Next Visit Plan Continue lymphedema management , further training of caregiver as needed if able to come for home wrapping. Assure correct fit of compression alternatives when they come.
--- NOTE | 2019-07-12 11:23 | PT.OTN ---
Current Diagnoses Lymphedema, not elsewhere classified (07/12/19) Other specified soft tissue disorders (07/12/19) Physical Therapy Treatment Note PT-OP-A Visit Information Start: 05/06/19 10:40 Freq: Status: Active Protocol: Document 07/12/19 11:15 SAK (Rec: 07/12/19 11:23 SAK [id number]) Out-Patient Physical Therapy Visit Information Visit Information Visit Type Treatment Note Visit Start Time 09:00 Visit Stop Time 10:30 Total Visit Minutes 90 Visit Number 8 Evaluation Information Evaluation Date 07/12/19 Precautions Precautions history of arthritis, back pain, falls,headaches PT-OP-B Current Condition Start: 05/06/19 10:40 Freq: Status: Active Protocol: Document 06/24/19 14:39 SAK (Rec: 06/24/19 14:57 SAK [id number]) Current Condition History of Current Condition Onset Date 10 yrs ago Current Complaints bilateral LE edema History of Current Condition Reports 10 year history of worsening bilateral LE, initially starting edema lateral right lateral LE edema . Was first given diuretic wasn't helpful, edema gradually worsening, now moving up higher in her upper legs legs. Has knee high compression stockings 20-30 mm Hg but reports not helpful. Has not worn thigh high. 1 episode of cellulitis right LE approx 2 years ago. Minimal decrease swelling with elevation. Is frustrated by continued worsening of her edema and lack of effective treatment for it. Reports legs feel heavy and cause increasing difficulty with her mobility Prior Treatments and Tests negative for DVT Treatment Goals Patient/Caregiver Goals Decrease LE swelling to improve her quality of life PT-OP-C Subjective Start: 05/06/19 10:40 Freq: Status: Active Protocol: Document 07/12/19 11:15 SAK (Rec: 07/12/19 11:23 SAK [id number]) OP-PT Subjective Patient Comments Patient Comments Reports she is frustrated that her caregiver isn't aable to wrap adequately, loses ground when not seen in PT. Feel out of bed last night, sore great toe on left, otherwise ok. PT-OP-F Manual Assessment Start: 05/06/19 10:40 Freq: Status: Active Protocol: Document 06/22/19 09:06 SAK (Rec: 06/22/19 13:07 SAK [id number]) Manual Assessments Soft Tissue Assessment Soft Tissue Mobility Assessment No palpable soft tissue fibrosis. PT-OP-J Posture/Palpation/Skin Start: 05/06/19 10:40 Freq: Status: Active Protocol: Document 06/22/19 09:06 [facility] (Rec: 06/22/19 13:07 [facility] [id number]) Palpation Assessment Location bilateral LE Palpation Findings Edema Palpation Details no palpable tissue fibrosis, right LE more swollen than left. Stemmer sign negative. Non-pitting PT-OP-N Lymphedema Start: 05/06/19 10:40 Freq: Status: Active Protocol: Document 07/06/19 15:41 [facility] (Rec: 07/06/19 15:53 [facility] [id number]) Lymphedema Measurements Lower Extremity Circumference Measurements Left MT Heads 23 cm Medial Malleolus 28.4 cm 10 cm From Medial Malleolus 37.6 cm 20 cm From Medial Malleolus 45.3 cm 30 cm From Medial Malleolus 49.1 cm 40 cm From Medial Malleolus 47 cm 50 cm From Medial Malleolus 55.7 cm 60 cm From Medial Malleolus 66.4 cm 70 cm From Medial Malleolus 71.4 cm 80 cm From Medial Malleolus 79.1 cm right MT Heads 24 cm Medial Malleolus 27 cm 10 cm From Medial Malleolus 34 cm 20 cm From Medial Malleolus 42.1 cm 30 cm From Medial Malleolus 47 cm 40 cm From Medial Malleolus 51.4 cm 50 cm From Medial Malleolus 60.6 cm 60 cm From Medial Malleolus 71.3 cm 70 cm From Medial Malleolus 71 cm 80 cm From Medial Malleolus 82.5 cm PT-OP-Q Treatments Start: 05/06/19 10:40 Freq: Status: Active Protocol: Document 07/12/19 11:15 [facility] (Rec: 07/12/19 11:23 [facility] [id number]) Lymphedema Treatment Manual Lymphatic Drainage Location MLD bilateral LE's supine and sidelying Duration 40 Lymphedema Wrapping Body Location bilateral LE's Materials Artiflex and Comprilan MTP's to upper thighs (Cetaphil applied prior for skin care) Other Patient instructed to remove wraps if uncomfortable, toes purple Sequential Lymphedema Exercises Location bilateral LE's Comments Sci-Fit recumbant elliptical x 10 min L1 to facilitate further lymphatic flow after MLD and lymphedema wrapping. Other Other updated measurements taken today and faxed to [facility] with form used by [facility] PT-OP-T Assessment and Plan Start: 05/06/19 10:40 Freq: Status: Active Protocol: Document 07/12/19 11:15 [facility] (Rec: 07/12/19 11:23 [facility] [id number]) Physical Therapy Assessment Goals 4 Impairment Lymphedema life impact scale Mcfp Goal (LTG) reduce lymphedema life impact scale by 50% LTG Duration 08/06/19 3 Impairment decline in functional mobility Mcfp Goal (LTG) Patient to report a return to prior level of mobility within her home and the community, including ability to take walks of at least 15 minutes for purposes of community mobility LTG Duration 08/06/19 2 Impairment knowledge deficit Short Term Goal (STG) Patient will be instructed in all aspects of self-management for edema including skin care , self-wrapping, self-massage, lymphedema exercises STG Duration 07/06/19 Mcfp Goal (LTG) Patient to be fit with appropriate compression garment and be able to don and doff, and demonstrate good understanding and independence with all aspects of edema management. LTG Duration 08/06/19 1 Impairment edema bilateral LE's Lathe Turner Goal (LTG) Decrease and stabilize LE lymphedema (no increase or decrease of circumferential measurements greater than 1 cm over the course of 1 week) LTG Duration 08/06/19 Assessment Summary Assessment Some increase in measurements over weekend. Caregiver not wrapping adequately. Have sent measurements to [facility]. Would benefit from further PT but given the possibility of closure of this clinic due to Covid-19, feel ordering compression alternatives appropriate at this time. Physical Therapy Plan Frequency and Duration Frequency of Treatment 12 visits x 6 wks Duration of Treatment 6 wks Plan of Care Start Date 06/22/19 Plan of Care End Date 08/06/19 Therapeutic Interventions Therapeutic Interventions Lymphedema Management,Manual Therapy,Patient/Caregiver Education,Self-Care/Home Management,Therapeutic Exercises Discharge Physical Therapy Discharge Reasons Patient Request Discharge Comments Pt is going to be doing lymphedema therapy now. Next Visit Focus/Plan Next Note Type Treatment Note Next Visit Plan Continue lymphedema management , further training of caregiver as needed if able to come for home wrapping. Assure correct fit of compression alternatives when they come.
--- NOTE | 2019-07-13 12:25 | PT.OTN ---
Current Diagnoses Lymphedema, not elsewhere classified (07/13/19) Other specified soft tissue disorders (07/13/19) Physical Therapy Treatment Note PT-OP-A Visit Information Start: 05/06/19 10:40 Freq: Status: Active Protocol: Document 07/13/19 12:12 SAK (Rec: 07/13/19 12:25 [facility] [id number]) Out-Patient Physical Therapy Visit Information Visit Information Visit Type Treatment Note Visit Start Time 10:30 Visit Stop Time 12:00 Total Visit Minutes 90 Visit Number 9 Evaluation Information Evaluation Date 07/12/19 Precautions Precautions history of arthritis, back pain, falls,headaches PT-OP-B Current Condition Start: 05/06/19 10:40 Freq: Status: Active Protocol: Document 06/24/19 14:39 SAK (Rec: 06/24/19 14:57 SAK [id number]) Current Condition History of Current Condition Onset Date 10 yrs ago Current Complaints bilateral LE edema History of Current Condition Reports 10 year history of worsening bilateral LE, initially starting edema lateral right lateral LE edema . Was first given diuretic wasn't helpful, edema gradually worsening, now moving up higher in her upper legs legs. Has knee high compression stockings 20-30 mm Hg but reports not helpful. Has not worn thigh high. 1 episode of cellulitis right LE approx 2 years ago. Minimal decrease swelling with elevation. Is frustrated by continued worsening of her edema and lack of effective treatment for it. Reports legs feel heavy and cause increasing difficulty with her mobility Prior Treatments and Tests negative for DVT Treatment Goals Patient/Caregiver Goals Decrease LE swelling to improve her quality of life PT-OP-C Subjective Start: 05/06/19 10:40 Freq: Status: Active Protocol: Document 07/13/19 12:12 SAK (Rec: 07/13/19 12:25 [facility] [id number]) OP-PT Subjective Patient Comments Patient Comments States PT wrapping felt good, no discomfort, decreases swelling. Wanting to make sure she has information for [facility] to be able to get her compression alternatives; information given again. All information on measurements has been sent to Indira at [facility] and has been received per email this am. PT-OP-F Manual Assessment Start: 05/06/19 10:40 Freq: Status: Active Protocol: Document 06/22/19 09:06 SAK (Rec: 06/22/19 13:07 SAK [id number]) Manual Assessments Soft Tissue Assessment Soft Tissue Mobility Assessment No palpable soft tissue fibrosis. PT-OP-J Posture/Palpation/Skin Start: 05/06/19 10:40 Freq: Status: Active Protocol: Document 06/22/19 09:06 [facility] (Rec: 06/22/19 13:07 [facility] [id number]) Palpation Assessment Location bilateral LE Palpation Findings Edema Palpation Details no palpable tissue fibrosis, right LE more swollen than left. Stemmer sign negative. Non-pitting PT-OP-N Lymphedema Start: 05/06/19 10:40 Freq: Status: Active Protocol: Document 07/06/19 15:41 [facility] (Rec: 07/06/19 15:53 [facility] [id number]) Lymphedema Measurements Lower Extremity Circumference Measurements Left MT Heads 23 cm Medial Malleolus 28.4 cm 10 cm From Medial Malleolus 37.6 cm 20 cm From Medial Malleolus 45.3 cm 30 cm From Medial Malleolus 49.1 cm 40 cm From Medial Malleolus 47 cm 50 cm From Medial Malleolus 55.7 cm 60 cm From Medial Malleolus 66.4 cm 70 cm From Medial Malleolus 71.4 cm 80 cm From Medial Malleolus 79.1 cm right MT Heads 24 cm Medial Malleolus 27 cm 10 cm From Medial Malleolus 34 cm 20 cm From Medial Malleolus 42.1 cm 30 cm From Medial Malleolus 47 cm 40 cm From Medial Malleolus 51.4 cm 50 cm From Medial Malleolus 60.6 cm 60 cm From Medial Malleolus 71.3 cm 70 cm From Medial Malleolus 71 cm 80 cm From Medial Malleolus 82.5 cm PT-OP-Q Treatments Start: 05/06/19 10:40 Freq: Status: Active Protocol: Document 07/13/19 12:12 [facility] (Rec: 07/13/19 12:25 [facility] [id number]) Lymphedema Treatment Manual Lymphatic Drainage Location MLD bilateral LE's supine and sidelying Duration 40 Lymphedema Wrapping Body Location bilateral LE's Materials Artiflex and Comprilan MTP's to upper thighs (Cetaphil applied prior for skin care) Other Patient instructed to remove wraps if uncomfortable, toes purple Sequential Lymphedema Exercises Location bilateral LE's Comments Sci-Fit recumbant elliptical x 10 min L1 to facilitate further lymphatic flow after MLD and lymphedema wrapping. PT-OP-T Assessment and Plan Start: 05/06/19 10:40 Freq: Status: Active Protocol: Document 07/13/19 12:12 [facility] (Rec: 07/13/19 12:25 [facility] [id number]) Physical Therapy Assessment Goals 4 Impairment Lymphedema life impact scale Embedded Software Architect Goal (LTG) reduce lymphedema life impact scale by 50% LTG Duration 08/06/19 3 Impairment decline in functional mobility Care Home Goal (LTG) Patient to report a return to prior level of mobility within her home and the community, including ability to take walks of at least 15 minutes for purposes of community mobility LTG Duration 08/06/19 2 Impairment knowledge deficit Short Term Goal (STG) Patient will be instructed in all aspects of self-management for edema including skin care , self-wrapping, self-massage, lymphedema exercises STG Duration 07/06/19 Care Home Goal (LTG) Patient to be fit with appropriate compression garment and be able to don and doff, and demonstrate good understanding and independence with all aspects of edema management. LTG Duration 08/06/19 1 Impairment edema bilateral LE's Care Home Goal (LTG) Decrease and stabilize LE lymphedema (no increase or decrease of circumferential measurements greater than 1 cm over the course of 1 week) LTG Duration 08/06/19 Assessment Summary Assessment PT clinic to be closed end of day today due to Covid-19. Will be closed until end july, then reassess opening. May benefit from further PT after reopening. Patient has PT contact information if she has problems during closure. Physical Therapy Plan Frequency and Duration Frequency of Treatment 12 visits x 6 wks Duration of Treatment 6 wks Plan of Care Start Date 06/22/19 Plan of Care End Date 08/06/19 Therapeutic Interventions Therapeutic Interventions Lymphedema Management,Manual Therapy,Patient/Caregiver Education,Self-Care/Home Management,Therapeutic Exercises
--- NOTE | 2019-10-28 09:13 | PT-OP ANOTE ---
Left voicemail message with patient to see if any questions or further PT inicated
--- NOTE | 2019-11-04 11:39 | PT.OTN ---
Current Diagnoses Lymphedema, not elsewhere classified (07/13/19) Other specified soft tissue disorders (07/13/19) Physical Therapy Treatment Note PT-OP-A Visit Information Start: 05/06/19 10:40 Freq: Status: Active Protocol: Document 11/04/19 11:38 SAK (Rec: 11/04/19 11:39 SAK [id number]) Out-Patient Physical Therapy Visit Information Visit Information Visit Type Discharge Summary Visit Note Called and left message with patient regarding any further PT needs following PT closure for Covid19 Call not returned . Will be discharged from PT. PT-OP-B Current Condition Start: 05/06/19 10:40 Freq: Status: Active Protocol: Document 06/24/19 14:39 SAK (Rec: 06/24/19 14:57 SAK [id number]) Current Condition History of Current Condition Onset Date 10 yrs ago Current Complaints bilateral LE edema History of Current Condition Reports 10 year history of worsening bilateral LE, initially starting edema lateral right lateral LE edema . Was first given diuretic wasn't helpful, edema gradually worsening, now moving up higher in her upper legs legs. Has knee high compression stockings 20-30 mm Hg but reports not helpful. Has not worn thigh high. 1 episode of cellulitis right LE approx 2 years ago. Minimal decrease swelling with elevation. Is frustrated by continued worsening of her edema and lack of effective treatment for it. Reports legs feel heavy and cause increasing difficulty with her mobility Prior Treatments and Tests negative for DVT Treatment Goals Patient/Caregiver Goals Decrease LE swelling to improve her quality of life PT-OP-C Subjective Start: 05/06/19 10:40 Freq: Status: Active Protocol: Document 07/13/19 12:12 SAK (Rec: 07/13/19 12:25 SAK [id number]) OP-PT Subjective Patient Comments Patient Comments States PT wrapping felt good, no discomfort, decreases swelling. Wanting to make sure she has information for [facility] to be able to get her compression alternatives; information given again. All information on measurements has been sent to Indira at [facility] and has been received per email this am. PT-OP-F Manual Assessment Start: 05/06/19 10:40 Freq: Status: Active Protocol: Document 06/22/19 09:06 SAK (Rec: 06/22/19 13:07 SAK [id number]) Manual Assessments Soft Tissue Assessment Soft Tissue Mobility Assessment No palpable soft tissue fibrosis. PT-OP-J Posture/Palpation/Skin Start: 05/06/19 10:40 Freq: Status: Active Protocol: Document 06/22/19 09:06 [facility] (Rec: 06/22/19 13:07 [facility] [id number]) Palpation Assessment Location bilateral LE Palpation Findings Edema Palpation Details no palpable tissue fibrosis, right LE more swollen than left. Stemmer sign negative. Non-pitting PT-OP-N Lymphedema Start: 05/06/19 10:40 Freq: Status: Active Protocol: Document 07/06/19 15:41 [facility] (Rec: 07/06/19 15:53 [facility] [id number]) Lymphedema Measurements Lower Extremity Circumference Measurements Left MT Heads 23 cm Medial Malleolus 28.4 cm 10 cm From Medial Malleolus 37.6 cm 20 cm From Medial Malleolus 45.3 cm 30 cm From Medial Malleolus 49.1 cm 40 cm From Medial Malleolus 47 cm 50 cm From Medial Malleolus 55.7 cm 60 cm From Medial Malleolus 66.4 cm 70 cm From Medial Malleolus 71.4 cm 80 cm From Medial Malleolus 79.1 cm right MT Heads 24 cm Medial Malleolus 27 cm 10 cm From Medial Malleolus 34 cm 20 cm From Medial Malleolus 42.1 cm 30 cm From Medial Malleolus 47 cm 40 cm From Medial Malleolus 51.4 cm 50 cm From Medial Malleolus 60.6 cm 60 cm From Medial Malleolus 71.3 cm 70 cm From Medial Malleolus 71 cm 80 cm From Medial Malleolus 82.5 cm PT-OP-Q Treatments Start: 05/06/19 10:40 Freq: Status: Active Protocol: Document 07/13/19 12:12 [facility] (Rec: 07/13/19 12:25 [facility] [id number]) Lymphedema Treatment Manual Lymphatic Drainage Location MLD bilateral LE's supine and sidelying Duration 40 Lymphedema Wrapping Body Location bilateral LE's Materials Artiflex and Comprilan MTP's to upper thighs (Cetaphil applied prior for skin care) Other Patient instructed to remove wraps if uncomfortable, toes purple Sequential Lymphedema Exercises Location bilateral LE's Comments Sci-Fit recumbant elliptical x 10 min L1 to facilitate further lymphatic flow after MLD and lymphedema wrapping. PT-OP-T Assessment and Plan Start: 05/06/19 10:40 Freq: Status: Active Protocol: Document 11/04/19 11:38 [facility] (Rec: 11/04/19 11:39 [facility] [id number]) Physical Therapy Plan Discharge Physical Therapy Discharge Reasons No Longer Attending PT
== END 2019-11-18 09:21 ==
LOC: PHYS 10:30
PROVIDERS: PCP Family Medicine; Referring Provider Family Medicine; Visit Provider Family Medicine
DX: I89.0 Lymphedema, not elsewhere classified (principal); M79.89 Other specified soft tissue disorders
CPT/HCPCS: 97110; 97140; 97162; 97535

== ENCOUNTER → 2019-10-11 16:06 | Outpatient (CLI) | payer OTHER, SELFPAY ==
[2019-10-11 20:16] LABS: BUN Creatinine Ratio 26.1 (6-22); Blood Urea Nitrogen 18 mg/dL (7-17); Calcium 9.4 mg/dL (8.4-10.2); Carbon Dioxide 27 mmol/L (22-32); Chloride 105 mmol/L (98-107); Estimated Glomerular Filt Rate > 60.0 mL/min (>60); Glucose 82 mg/dL (80-110); HEMOLYSIS < 15 (0-50); Potassium 4.4 mmol/L (3.4-5.1); Sodium 138 mmol/L (137-145)
== END ==
PROVIDERS: PCP Family Medicine; Referring Provider Family Medicine; Visit Provider Family Medicine
DX: Z51.81 Encounter for therapeutic drug level monitoring (principal); Z79.1 Long term (current) use of non-steroidal anti-inflammatories (NSAID)
CPT/HCPCS: 36415; 80048

== ENCOUNTER → 2020-02-08 15:00 | Outpatient (CLI) | payer OTHER, SELFPAY | PROVIDERS: PCP Family Medicine; Referring Provider Family Medicine; Visit Provider Family Medicine | DX: Z13.820 Encounter for screening for osteoporosis (principal); M81.0 Age-related osteoporosis without current pathological fracture; Z78.0 Asymptomatic menopausal state | CPT/HCPCS: 77080 ==

== ENCOUNTER → 2020-04-11 10:39 | Outpatient (CLI) | payer OTHER, SELFPAY ==
--- NOTE | 2020-04-11 14:48 | DIET.PN ---
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 Pt reports she has gained weight over the past year secondary to the gym shutting down and increased snacking. 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 Pt reports sleeping poorly because of frequent interruptions from spouse in the night. HT: 5'4 WT: pt declines weight check but wants to lose 50# UBW: 104kg BMI: 39.5 (2y ago) Prior to global pandemic pt had personal lines sales executive 3x/w and was swimming also. Now pt swims 2-3x/w. Usual Day: doesn't sleep very well, gets best sleep in morning hours often sleeps until noon wakes cup black coffee at 10am fresh bread c butter and Slater peanut butter 1-230pm lunch (wants to change to 12:30-1pm): half sandwich c LS deli meat and cheese, soup-tomato, fruit (doesn't like chicken noodle, doesn't like spicy), c water, coffee, soda ([place] Dry) to settle stomach pt snacks on grapes and apples, no sodium mixed nuts 6-7pm eats dinner: fresh salad c small amount of ranch or vinaigrette, fresh meat (beef, pork chop, chicken, turkey), chicken pot pie, soups from crock pot, casseroles tends to graze at night (fruit, crackers, nuts) Nutrition Diagnosis: morbid obesity r/t physical inactivity and undesirable food choices aeb pt BMI 39.5 two years ago, pt reports having gained weight since then, 60 min physical activity/week, pt has chronic px and lymphedema complicated by excess weight, food recall showing daily consumption of soda, inconsistent meal timing, and frequent snacking. Interventions: 1. To promote self-care and increase motivation for weight loss, pt wake by 10am daily and set standardized meal times of 10:30am breakfast, 1pm lunch, 6pm dinner. 2. To support weight loss by increasing physical activity, pt will continue to go to the pool 3x/w and add chair workouts through [employer] an additional two days per week. Provided pt and central service tech c information. Pt goal is -1#/week for total of 52# over one year. 3. To support weight loss by making better choices, pt will eat breakfast of coffee, half apple, and pb toast. Pts central service tech will find recipes for homemade soups rather than relying on canned. RD provided recipe for lentil soup. Pt and central service tech will use [employer] Well resources for making one new healthy dinner per week to add to rotation with focus on low sodium and higher fiber. 4. To support weight loss, pt will limit soda consumption to one can q3d or less. Instructed pt on limiting added sugar to 20g/d. Pts central service tech will purchase lemon david tea and simmer lemon with fresh david and add to fizzy water for a sugar free alternative. Pt allowed to have stevia sweetened soda if available. Monitoring/Evaluations: pt will call to schedule f/u as needed
== END ==
PROVIDERS: PCP Family Medicine; Referring Provider Family Medicine; Visit Provider Family Medicine
DX: E66.9 Obesity, unspecified (principal); M25.559 Pain in unspecified hip; I89.0 Lymphedema, not elsewhere classified; Z71.3 Dietary counseling and surveillance
CPT/HCPCS: 97802

== ENCOUNTER → 2020-06-15 11:29 | Outpatient (CLI) | payer OTHER, SELFPAY ==
[2020-06-15 12:51] LABS: Alanine Aminotransferase 37 IU/L (<35); Albumin Globulin Ratio 1.4 (1.0-2.8); Alkaline Phosphatase 68 U/L (38-126); Aspartate Aminotransferase 34 IU/L (14-36); BUN Creatinine Ratio 37.3 (6-22); Bilirubin Total 0.4 mg/dL (0.2-1.3); Blood Urea Nitrogen 22 mg/dL (7-17); Calcium 9.3 mg/dL (8.4-10.2); Carbon Dioxide 29 mmol/L (22-32); Chloride 106 mmol/L (98-107); Estimated Glomerular Filt Rate > 60.0 mL/min (>60); Globulin 2.9 g/dL (1.7-4.1); Glucose 118 mg/dL (80-110); HEMOLYSIS < 15 (0-50); Sodium 138 mmol/L (137-145); Total Protein 6.9 g/dL (6.3-8.2)
== END ==
PROVIDERS: PCP Family Medicine; Referring Provider Family Medicine; Visit Provider Family Medicine
DX: I10 Essential (primary) hypertension (principal)
CPT/HCPCS: 36415; 80053

== ENCOUNTER → 2020-06-16 13:26 | Outpatient (CLI) | payer OTHER, SELFPAY ==
--- NOTE | 2020-06-16 13:27 | DI.RAD.S_ITS ---
PROCEDURE: XR HIP W PEL IF DONE LT MIN 4V INDICATIONS: bilateral hip pain TECHNIQUE: AP pelvis with lateral view(s) of the both hip(s). COMPARISON: [facility], [place], XR HIP W PEL IF DONE RT 2V, 01/01/2019, 12:28. [facility], [place], HIPBILAT 3TO4V W PEL IF PERFD, 06/05/2017, 12:54. FINDINGS: Bones: No fractures or dislocations. Mild symmetric hip DJD. Pelvic ring appears intact. Overall findings similar to the prior exam. Degenerative change at the pubic symphysis and lower lumbar spine. No suspicious bony lesions. Soft tissues: The visualized bowel gas pattern is normal. No suspicious soft tissue calcifications. IMPRESSION: Mild bilateral hip DJD. Dictated by: Ti Perdomo M.D. on 06/16/2020 at 17:48 Approved by: Ti Perdomo M.D. on 06/16/2020 at 17:50
--- NOTE | 2020-06-16 13:27 | DI.RAD.S_ITS ---
PROCEDURE: XR KNEE RT 3V INDICATIONS: bilateral knee pain TECHNIQUE: 3 views of the knee were acquired. COMPARISON: [facility], , XR KNEE RT 3V, 01/01/2019, 12:28. FINDINGS: Bones: No fractures or dislocations. Tricompartmental osteophytosis. Mild joint space narrowing. Findings similar to 2019. No suspicious bony lesions. Soft tissues: No joint effusion. No suspicious soft tissue calcifications. IMPRESSION: [id number] right knee DJD. Dictated by: Ti Perdomo M.D. on 06/16/2020 at 17:45 Approved by: Ti Perdomo M.D. on 06/16/2020 at 17:46
--- NOTE | 2020-06-16 13:27 | DI.RAD.S_ITS ---
PROCEDURE: XR KNEE LT 3V INDICATIONS: bilateral knee pain TECHNIQUE: 3 views of the knee were acquired. COMPARISON: [facility], [place], XR KNEE LT 3V, 01/01/2019, 12:28. [facility], [place], XR KNEE RT 3V, 01/01/2019, 12:28. FINDINGS: Bones: No fractures or dislocations. Advanced joint space narrowing in the medial femoral tibial compartment. Tricompartmental osteophytosis. Findings appear progressed compared to 2019. No suspicious bony lesions. Soft tissues: No joint effusion. No suspicious soft tissue calcifications. IMPRESSION: Moderate to severe left knee DJD most pronounced in the medial compartment. Dictated by: Ti Perdomo M.D. on 06/16/2020 at 17:46 Approved by: Ti Perdomo M.D. on 06/16/2020 at 17:48
== END ==
PROVIDERS: PCP Family Medicine; Referring Provider Family Medicine; Visit Provider Family Medicine
DX: M25.551 Pain in right hip (principal); M25.552 Pain in left hip; M16.0 Bilateral primary osteoarthritis of hip; M25.561 Pain in right knee; M25.562 Pain in left knee; M17.0 Bilateral primary osteoarthritis of knee
CPT/HCPCS: 73522; 73562

== ENCOUNTER → 2020-06-26 14:21 | Outpatient (CLI) | payer OTHER, SELFPAY ==
--- NOTE | 2020-06-26 14:23 | DI.RAD.S_ITS ---
PROCEDURE: XR LUMBAR SPINE MIN 4V INDICATIONS: LBP with bilateral hip pain TECHNIQUE: 5 views of the lumbar spine were acquired, including bilateral oblique views. COMPARISON: None. FINDINGS: Bones: 5 nonrib-bearing vertebrae are present. There is grade 1 anterolisthesis of L3 on L4 and L4 on L5. Grade 1 retrolisthesis of L2 on L3 is also seen. Degenerative endplate changes are noted throughout lumbar spine more prominent at L2-3, L4-5 and L5-S1 levels. Bilateral facet arthrosis are also seen. No vertebral body compression fractures. No suspicious bony lesions. Soft tissues: Overlying bowel gas pattern is normal. No suspicious soft tissue calcifications. Oblique images: No obvious pars defects. There is suggestion of bilateral bony foraminal stenosis at L3-4 and L4-5 levels. IMPRESSION: Likely degenerative spondylolisthesis at L2-3 through L4-5 levels. No obvious pars defects are seen. No acute compression fracture. Suggestion of bilateral bony foraminal stenosis at L3-4 and L4-5 levels. Dictated by: Michael Condon M.D. on 06/26/2020 at 14:44 Approved by: Michael Condon M.D. on 06/26/2020 at 14:56
== END ==
PROVIDERS: PCP Family Medicine; Referring Provider Physical Medicine & Rehabilitation; Visit Provider Physical Medicine & Rehabilitation
DX: M54.16 Radiculopathy, lumbar region (principal); M25.551 Pain in right hip; M25.552 Pain in left hip; M81.0 Age-related osteoporosis without current pathological fracture; M17.11 Unilateral primary osteoarthritis, right knee; M17.12 Unilateral primary osteoarthritis, left knee; M70.61 Trochanteric bursitis, right hip; M70.62 Trochanteric bursitis, left hip
CPT/HCPCS: 72110; 99214

== ENCOUNTER → 2020-07-21 07:55 | Outpatient (CLI) | payer OTHER, SELFPAY ==
--- NOTE | 2020-07-21 07:57 | DI.MRI.S_ITS ---
PROCEDURE: MR LUMBAR SPINE WO CON INDICATIONS: INCREASE BACK PAIN TECHNIQUE: Noncontrast sagittal T1 spin echo and T2 fast echo, sagittal STIR, axial T1 and T2 fast spin echo through the lumbar spine. In cases with scoliosis, additional coronal T2 fast spin echo may be performed. COMPARISON: [facility], CR, XR LUMBAR SPINE MIN 4V, 06/26/2020, 14:23. FINDINGS: Image quality: Excellent. Alignment and Curvature: 5 lumbar type vertebral bodies are present by plain film. There is mild grade 1 retrolisthesis of L2 on L3 and L5 on S1. Mild grade 1 anterolisthesis of L3 on L4 and L4 on L5. Bone Marrow: Marrow is of normal overall signal. No acute vertebral body compression fractures. There is mild reactive signal within the endplates adjacent to the L2-L3, L3-L4, L4-L5, and L5-S1 intervertebral discs. Spinal Cord: Conus medullaris terminates at the L2-L3 disc space level. Visualized cord demonstrates normal signal and size. Paraspinous Soft Tissues: No paravertebral masses. T12-L1: Mild disc desiccation. Mild facet and ligamentum flavum hypertrophy. No significant canal, or foraminal stenosis. L1-L2: Mild disc desiccation. Mild facet and ligamentum flavum hypertrophy. Mild canal stenosis. Mild bilateral foraminal stenosis. L2-L3: Moderate disc height loss and desiccation. Mild diffuse disc bulge. Mild facet and ligamentum flavum hypertrophy. Mild canal stenosis. Moderate subarticular foraminal stenosis bilaterally. L3-L4: Moderate disc desiccation. Mild disc height loss. Moderate diffuse disc bulge. Mild facet and ligamentum flavum hypertrophy. Mild epidural lipomatosis. Severe canal stenosis. Moderate subarticular foraminal stenosis bilaterally. L4-L5: Moderate disc height loss and desiccation. Moderate diffuse disc bulge with superimposed broad-based left posterolateral and far lateral protrusion. Mild facet and ligamentum flavum hypertrophy. Mild epidural lipomatosis. Moderate to severe canal stenosis. Moderate bilateral subarticular foraminal stenosis, left greater than right. L5-S1: Moderate disc height loss and desiccation. Mild diffuse disc bulge with small superimposed left far lateral/foraminal disc extrusion. Mild facet and ligamentum flavum hypertrophy. Mild canal stenosis. Severe left and moderate right foraminal stenosis. Left L5 nerve root compression. IMPRESSION: 1. Multilevel degenerative disc and facet disease, as well as ligamentum flavum hypertrophy and epidural lipomatosis. 2. Multilevel canal stenoses, worst at L3-L4 and L4-L5 as described above. 3. Multilevel foraminal stenosis, worst at L5-S1 on the left where there is associated intraforaminal nerve root compression. Recommend correlation with clinical symptoms to ascertain relevance of this finding. Dictated by: Sandy Berkowitz M.D. on 07/24/2020 at 9:09 Approved by: Sandy Berkowitz M.D. on 07/24/2020 at 12:32
== END ==
PROVIDERS: PCP Family Medicine; Referring Provider Physical Medicine & Rehabilitation; Visit Provider Physical Medicine & Rehabilitation
DX: M54.16 Radiculopathy, lumbar region (principal); M51.36 Other intervertebral disc degeneration, lumbar region; E88.2 Lipomatosis, not elsewhere classified; M48.061 Spinal stenosis, lumbar region without neurogenic claudication; M47.817 Spondylosis without myelopathy or radiculopathy, lumbosacral region
CPT/HCPCS: 72148

== ENCOUNTER → 2020-09-11 08:25 | Outpatient (CLI) | payer OTHER, SELFPAY ==
[2020-09-11 15:28] LABS: COVID19 -Nasal RAPID Negative (Negative)
== END ==
PROVIDERS: PCP Family Medicine; Visit Provider Physical Medicine & Rehabilitation
DX: Z20.822 Contact with and (suspected) exposure to COVID-19 (principal)
CPT/HCPCS: 87635; C9803

== ENCOUNTER 2020-09-12 14:18 | Outpatient (CLI) | payer OTHER, SELFPAY ==
[2020-09-12] VITALS (12 sets, daily range): BP systolic 89–126; BP diastolic 50–64; PULSE 56–87; RESP 15–21; TEMP 36.6; O2SAT 91–96
--- NOTE | 2020-09-12 14:21 | DI.RAD.S_ITS ---
PROCEDURE: PAIN L INTERLAMINAR/CAUDAL INJ INDICATIONS: SPONDYLOSIS COMPARISON: None. FINDINGS: Fluoroscopic spot filming was performed to verify placement of spinal needles at the L3-L4 level(s), as labeled on the films. Appropriate location(s) of the needle tip(s) was confirmed by injection of iodinated contrast. Dictated by: Lorne Leo M.D. on 09/12/2020 at 16:01 Approved by: Lorne Leo M.D. on 09/12/2020 at 16:02
[2020-09-12] MEDS: MIDAZOLAM 5 MG/5 ML VIAL IV (15:05)
[2020-09-12] MEDS: fentaNYL 100 MCG/2 ML INJ 50 MCG IV (15:05)
[2020-09-12] MEDS: IOPAMIDOL 15 ML VIAL 3 ML INJ (15:08)
[2020-09-12] MEDS: DEXAMETHASONE 10 MG/ML VIAL 20 MG INJ (15:09)
[2020-09-12] MEDS: BUPIVACAINE 0.25% (PF) VIAL 2 ML INJ (15:09)
[2020-09-12] MEDS: BETAMETHASONE 30 MG/5 ML MDV 6 MG INJ (15:09)
--- NOTE | 2020-09-12 15:21 | P.PCN_ITS ---
Date/Time/Diagnoses Date of procedure: 09/12/20 Time of procedure: 15:22 Pre-procedure diagnosis: 1. FACET ARTHROPATHY Post-procedure diagnosis: same Procedure Notes Procedure: 1. BILATERAL- L4, L5 and S1 DIAGNOSTIC MB BLOCKS with LA Anesthetic Indications: [place] is referred by Dr. Webber for treatment of Bilateral Axial LBP. Physician: Kin Grant Total Fluoroscopy time (seconds): 14 Total sedation minutes: 14 Complications: none Procedure in detail & Post-procedure care: DESCRIPTION OF PROCEDURE Fluoroscopically guided, contrast-controlled bilateral L4, L5 and S1 medial branch blocks with 0.5cc of 0.5% Marcaine. Following review of allergy and review of potential side effects and complications, including, but not necessarily limited to, infection, allergic reaction, local tissue breakdown, nerve injury, paralysis, stroke and possible , the patient indicated that the patient understood and agreed to proceed. An informed consent document was signed by the patient, witnessed by a nurse, and placed in the patient's chart. After review of previous anaesthesic history and IV conscious sedation the patient was deemed safe to proceed with today's procedure with IV conscious sedation as ASA class II designation. Safety time-out was performed to confirm patient ID, procedure to be performed and site of procedure. IV sedation was accomplished with a combination of 2mg of Versed and 50mcg of Fentanyl was administered by the RN after DO order, titrated to patient comfort during the course of the procedure while the patient remained responsive to all verbal commands In the prone position, following sterile prep and drape of the lumbar region, the right L4, L5 and S1 anatomical location of the medial branch of the dorsal ramus was identified fluoroscopically. Subsequently an anesthetic skin wheal using 1% lidocaine solution was initiated at each of the anatomical spots. Subsequently then a 22-gauge 3.5-inch spinal needle was atraumatically introduced and advanced under fluoroscopic guidance at each of the corresponding sites at the right L4, L5 and S1 MB. After negative aspiration, 0.2cc of Isovue 200 was injected, confirming placement without vascular or intrathecal uptake. Subsequently then 0.5cc of 0.5% Marcaine solution was injected at each of the corresponding sites at the right L4, L5 and S1 medial branch locations. The identical procedure was replicated on the left. The patient tolerated the procedure well without signs or symptoms of complications prior to transfer to the recovery area continued monitoring without incident. Post-procedure, the patient was monitored initiating provocative activities to measure the amount of relief from block of the facetogenic pain. The patient reported a VAS of 7 prior to the procedure and a post-procedure VAS of 1. It has been a pleasure to assist in the diagnostic and therapeutic care of your patient. POST OP INSTRUCTIONS The patient was provided with a Pain Log to complete over the next several hours and subsequent days prior to the patient's follow up with the ordering physician. If the patient has supervisor component assembler relief to the solution applied, then they may be a candidate for medial branch rhizotomy. The patient is aware, was provided, once again, with a Pain Log and will follow up with the referring physician for review and clinical correlation
--- NOTE | 2020-10-09 08:44 | P.PCN_ITS ---
Date/Time/Diagnoses Date of procedure: 09/12/20 Time of procedure: 15:22 Pre-procedure diagnosis: 1. HNP WITH RADICULAR FEATURES, 2. MULTILEVEL CENTRAL STENOSIS, Post-procedure diagnosis: same Procedure Notes Procedure: 1. FLUOROSCOPICALLY GUIDED CONTRAST CONTROLLED INTERLAMINAR EPIDURAL STEROID INJECTION - L3/4 Indications: [place] is referred by Dr. Webber for treatment of Bilateral Foraminal Stenosis L>R LE symptoms. Physician: Kin Grant Total Fluoroscopy time (seconds): 14 Total sedation minutes: 14 Complications: none Procedure in detail & Post-procedure care: FINDINGS Multilevel Central Spinal Stenosis with Nerve Root Compression DESCRIPTION OF PROCEDURE Fluoroscopically guided, contrast-controlled L3/4 translaminar epidural steroid injection. Following review of allergy and review of potential side effects and complications, including, but not necessarily limited to, infection, allergic reaction, local tissue breakdown, temporary as well as permanent nerve injury, paralysis, stroke and possible , the patient indicated that the patient understood and agreed to proceed. An informed consent document was signed by the patient, witnessed by a nurse, and placed in the patient's chart. Additionally, other treatment options including modalities, medications, and physical therapy were reviewed with the patient. After review of previous anaesthesic history and IV conscious sedation the patient was deemed safe to proceed with today?s procedure with IV conscious sedation as ASA class II designation. Safety time-out was performed to confirm patient ID, procedure to be performed and site of procedure. IV sedation was accomplished with a combination of 2mg of Versed and 50mcg of Fentanyl was administered by the RN after DO order, titrated to patient comfort during the course of the procedure while the patient remained responsive to all verbal commands. In the prone position, following sterile prep and drape of the lumbar region, the L3/4 translaminar space was identified fluoroscopically. The skin was anesthetized via a 25-gauge, 1.5-inch needle with 1% lidocaine solution. At this point, a 22-gauge short bevel spinal needle was atraumatically introduced and advanced under fluoroscopic guidance into the region of the L3/4 translaminar space. Depth was confirmed on lateral view. Radiological data, including multiple fluoroscopic views of the lumbar spine, reveal a spinal needle at the L3/4 translaminar space. Lateral views then show placement of the needle in the epidural space. Subsequent views show contrast material flowing superiorly and inferiorly in the epidural space. No vascular or intrathecal uptake is observed. At this point, using loss of resistance technique with saline and air, the epidural space was entered. This was confirmed following negative aspiration with injection of approximately 1.5 cc of Isovue 200, showing excellent epidural flow without vascular or intrathecal uptake. At this point, 1cc of 1% lidocaine solution combined with 3cc or 20mg of dexamethasone and 6mg of betamethasone was injected without incident. The patient tolerated the procedure well without signs or symptoms of complications prior to transfer to the recovery area continued monitoring without incident. The patient was then transferred to the recovery area where they were observed for an appropriate period of time after the injection. The patient reported a VAS score of 6 prior to the procedure and a post- procedure VAS of 0. POST OP INSTRUCTIONS The patient was provided a Pain Log to continue to record their response to the target-specific procedure prior to follow-up visit with their referring physician. Additionally, specific post-injection care instructions and a contact number to our office were provided if concerns arise regarding possible complications associated with the procedure are suspected.
== END 2020-09-12 16:00 | disposition home or self-care (01) ==
PROVIDERS: PCP Family Medicine; Referring Provider Physical Medicine & Rehabilitation; Visit Provider Physical Medicine & Rehabilitation
DX: M51.16 Intervertebral disc disorders with radiculopathy, lumbar region (principal); M48.061 Spinal stenosis, lumbar region without neurogenic claudication
CPT/HCPCS: 62323; 99152; J0702; J1100; J2250; J3010

== ENCOUNTER → 2020-10-04 19:04 | Outpatient (CLI) | payer OTHER, SELFPAY ==
--- NOTE | 2020-10-04 19:07 | DI.MRI.S_ITS ---
PROCEDURE: MR KNEE RT WO CON INDICATIONS: right knee pain TECHNIQUE: Noncontrast sagittal PD fast spin echo and T2 fast spin echo with fat saturation, sagittal 3-D FLASH with fat saturation; coronal T1 spin echo and PD fast spin echo with fat saturation, and axial PD fast spin echo with fat saturation through the knee. COMPARISON: None. FINDINGS: Menisci: Medial meniscus: Medial meniscal tear involving the body with abnormal signal extending to the superior and inferior articular surfaces of marked truncation of the free margin. There is also slight partial extrusion. Lateral meniscus: Mild fraying and truncation of the free margin of the body of the lateral meniscus. Cruciate ligaments: Anterior cruciate ligament: Intact. Posterior cruciate ligament: Intact. Medial structures: The medial collateral ligament: There is medial bowing of the medial collateral ligament, with mild internal signal changes and no complete rupture. There is adjacent soft tissue edema. The appearance could reflect reactive changes to medial compartment pathology, versus low-grade sprain of the MCL. Semimembranosus tendon: Intact. Visualized pes anserinus tendons: Intact. Bursal fluid: none. Lateral structures: The lateral collateral ligament intact. Biceps femoris tendon appears intact. Popliteus tendon grossly unremarkable. Iliotibial band appears intact. Anterior structures: Quadriceps tendon: Intact. Medial patellofemoral ligament: Intact. Lateral patellofemoral ligament: Intact. Patellar tendon: Mild tendinopathy. Anterior soft tissues: Prepatellar and superficial infrapatellar subcutaneous edema/fluid. Deep infrapatellar region: Normal. Bones and cartilage: Marrow: No focal marrow contusion or discrete low signal fracture line. Medial compartment: Mild diffuse partial-thickness loss of the femoral cartilage. The tibial cartilage appears intact. Lateral compartment: Partial-thickness loss and surface fraying of the tibial cartilage. Surface fraying of the femoral cartilage is noted. Patellofemoral compartment: Areas of full-thickness loss overlying the medial patellar facet. There is diffuse patellar subchondral early cystic change and marrow edema. Partial-thickness loss of the remaining patellar cartilage. There is near full-thickness loss of the medial femoral trochlear cartilage. Joint space: Small joint effusion Fuller's cyst measuring 4 cm in the cephalocaudal dimension. No specific evidence of intra-articular loose body. IMPRESSION: Medial meniscal tear involving the body with slight partial extrusion. Adjacent MCL changes as above Prominent truncation, signal change in fraying of the free margin of the body of the lateral meniscus. Recommend clinical correlation. Degenerative joint disease, most pronounced in the patellofemoral compartment Small joint effusion Fuller's cyst Dictated by: Lorne Leo M.D. on 10/05/2020 at 10:13 Approved by: Lorne Leo M.D. on 10/05/2020 at 10:22
== END ==
PROVIDERS: PCP Family Medicine; Referring Provider Family Medicine; Visit Provider Family Medicine
DX: S83.241A Other tear of medial meniscus, current injury, right knee, initial encounter (principal); M25.561 Pain in right knee; M17.11 Unilateral primary osteoarthritis, right knee; M25.461 Effusion, right knee; M71.21 Synovial cyst of popliteal space [Baker], right knee
CPT/HCPCS: 73721

== ENCOUNTER → 2020-11-27 12:01 | Outpatient (CLI) | payer OTHER, SELFPAY | PROVIDERS: PCP Family Medicine; Referring Provider Family Medicine; Visit Provider Family Medicine | DX: M81.0 Age-related osteoporosis without current pathological fracture (principal); Z78.0 Asymptomatic menopausal state | CPT/HCPCS: 77080 ==

== ENCOUNTER → 2020-12-02 12:09 | Outpatient (CLI) | payer OTHER, SELFPAY | PROVIDERS: PCP Family Medicine; Visit Provider Physician Assistant | DX: N39.0 Urinary tract infection, site not specified (principal) | CPT/HCPCS: 87086 ==

== ENCOUNTER → 2021-02-12 08:36 | Outpatient (CLI) | payer OTHER, SELFPAY ==
[2021-02-12 17:14] LABS: COVID19 -Nasal RAPID Negative (Negative)
== END ==
PROVIDERS: PCP Family Medicine; Referring Provider Physical Medicine & Rehabilitation; Visit Provider Physical Medicine & Rehabilitation
DX: Z20.822 Contact with and (suspected) exposure to COVID-19 (principal)
CPT/HCPCS: 87635; C9803

== ENCOUNTER 2021-02-13 14:52 | Outpatient (CLI) | payer OTHER, SELFPAY ==
[2021-02-13] VITALS (9 sets, daily range): BP systolic 97–142; BP diastolic 56–81; PULSE 75–98; RESP 15–23; TEMP 36.8; O2SAT 92–98
--- NOTE | 2021-02-13 14:53 | DI.RAD.S_ITS ---
PROCEDURE: PAIN L/S FACET INJ/BLK 1ST NICOLETTE COMPARISON: September 12, 2020. INDICATIONS: SPONDYLOSIS FINDINGS/ IMPRESSION: 6 fluoroscopic images of the lumbar spine demonstrate bilateral L3-5 facet needle placement by injection of iodinated contrast. Dictated by: Dami Mabry M.D. on 02/13/2021 at 16:22 Approved by: Dami Mabry M.D. on 02/13/2021 at 16:28
[2021-02-13] MEDS: MIDAZOLAM 5 MG/5 ML VIAL IV (15:42)
[2021-02-13] MEDS: fentaNYL 100 MCG/2 ML INJ 50 MCG IV (15:42)
[2021-02-13] MEDS: BUPIVACAINE 0.5% (PF) VIAL 5 ML INJ (15:48)
[2021-02-13] MEDS: BETAMETHASONE 30 MG/5 ML MDV 12 MG INJ (15:48)
[2021-02-13] MEDS: IOPAMIDOL 15 ML VIAL 3 ML INJ (15:49)
[2021-02-13] MEDS: LIDOCAINE 1% 20 ML 10 ML INJ (15:53)
--- NOTE | 2021-02-13 16:01 | PM.PROC.IR.1 ---
Date/Time/Diagnoses Date of procedure: 02/13/21 Time of procedure: 16:01 Pre-procedure diagnosis: 1. FACET ARTHROPATHY 2. AXIAL LBP 3. MULTILEVEL DDD Post-procedure diagnosis: same Procedure Notes Procedure: 1. FLUORSCOPICALLY GUIDED CONTRAST CONTROLLED FACET JOINT INJECTIONS BILATERAL L3/4, L4/5 Indications: [place] is referred by Dr. Webber for treatment of Axial LBP Physician: Kin Grant Total Fluoroscopy time (seconds): 12 Total sedation minutes: 12 Complications: none Procedure in detail & Post-procedure care: FINDINGS Multilevel Facet Arthropathy with Clinically significant axial LBP DESCRIPTION OF PROCEDURE Fluoroscopically guided, contrast-controlled bilateral L3/4, L4/5 facet joint injections. Following review of allergy and review of potential side effects and complications, including, but not necessarily limited to, infection, allergic reaction, local tissue breakdown, stroke, temporary or permanent nerve injury, paralysis, and possible , the patient indicated that the patient understood and agreed to proceed. An informed consent document was signed by the patient, witnessed by a nurse, and placed in the patient's chart. Additionally, other treatment options including medications, modalities, and physical therapy were reviewed with the patient. After review of previous anaesthesic history and IV conscious sedation the patient was deemed safe to proceed with today's procedure with IV conscious sedation as ASA class II designation. Safety time-out was performed to confirm patient ID, procedure to be performed and site of procedure. IV sedation was accomplished with a combination of 2mg of Versed and 50mcg of Fentanyl was administered by the RN after DO order, titrated to patient comfort during the course of the procedure while the patient remained responsive to all verbal commands. In the prone position, following sterile prep and drape of the lumbar region, the posterior aspect of the L3/4, L4/5 facet joints were identified fluoroscopically. The skin was anesthetized via a 25-gauge 1.5-inch needle with 1% lidocaine solution into the corresponding facet joints. At this point, a 22-gauge 3.5-inch spinal needle was atraumatically introduced and advanced under fluoroscopic guidance into the corresponding facet joints. Following negative aspiration, injections of approximately 0.2cc of Isovue 200 confirmed interarticular placement without vascular uptake. The identical procedure was then performed at the L3/4, L4/5 facet joints on the left. Radiological data, including multiple fluoroscopic views of the lumbosacral spine, reveal a spinal needle at the L3/4, L4/5 facet joints bilaterally. Subsequent views show flow of contrast material both superiorly and inferiorly within the joint space without vascular or intrathecal uptake. At this point, a total of 0.5cc including a mixture of 0.25cc Marcaine and 0.25cc betamethasone was injected without complication into each of the corresponding facet joints. The patient tolerated the procedure well without signs or symptoms of complications prior to transfer to the recovery area continued monitoring without incident. The patient was then transferred to the recovery area where they were observed for an appropriate period of time after the injection. The patient reported a VAS score of 7 prior to the procedure and a post-procedure VAS of 0. POST OP INSTRUCTIONS The patient was provided a Pain Log to continue to record their response to the target-specific procedure prior to follow-up visit with their referring physician. Additionally, specific post-injection care instructions and a contact number to our office were provided if concerns arise regarding possible complications associated with the procedure are suspected.
== END 2021-02-13 16:21 | disposition home or self-care (01) ==
PROVIDERS: PCP Family Medicine; Referring Provider Physical Medicine & Rehabilitation; Visit Provider Physical Medicine & Rehabilitation
DX: M47.816 Spondylosis without myelopathy or radiculopathy, lumbar region (principal); M51.36 Other intervertebral disc degeneration, lumbar region; M54.59 Other low back pain
CPT/HCPCS: 64493; 64494; 99152; J0702; J2250; J3010

== ENCOUNTER 2021-02-18 17:31 | Emergency (ER) | payer OTHER, SELFPAY ==
[2021-02-18 17:35] VITALS: BP 134/71; PULSE 69; RESP 22; TEMP 36.7; O2SAT 96
--- NOTE | 2021-02-18 18:28 | PC.NURSE ---
Pt reports that in addition to the skin tear on her RLE, she feels she may have a UTI and would like to be checked.
--- NOTE | 2021-02-18 18:43 | PC.NURSE ---
Skin tear irrigated with 500mls NS and covered with a clean dressing
[2021-02-18 19:15] VITALS: BP 114/65; PULSE 88; O2SAT 95
[2021-02-18 19:19] LABS: Bacteria Urine Occasional (0-1); Calcium Oxalate Crystals Urine Moderate; Culture Indicated Urine Specimen Cultured; Mucus Urine 1+ (Negative); RBC Urine None Seen (0-5/HPF); Squamous Epithelial Cell Urine 1-5 /HPF (0-5/HPF); WBC Urine 5-10/HPF (0-5/HPF)
--- NOTE | 2021-02-18 19:32 | ED.SKABFB ---
HPI - Skin/Abscess/Foreign Bdy <Lee Iverson PA-C - Last Filed: 02/22/21 12:34> General Chief complaint: Skin/Abscess/Foreign Body Stated complaint: bad scratch on RT leg from cat Time Seen by Provider: 02/18/21 18:07 Source: patient Mode of arrival: Ambulatory History of Present Illness HPI narrative: Patient presents today for an evaluation a cat scratch injury sustained to the right leg earlier today. Patient states that she was sitting in a chair when she fell backward while holding a cat and as she was falling backward the cat scratched her right leg. She denies hitting her head or losing consciousness as a result of the fall. Of note, she states that she is experience cat scratches in the past that have resulted infections. Additionally, she states that she has experienced a burning sensation in her bladder for the past 2 days. She notes that she has a history of interstitial cystitis and the normal medications that she takes for IC have not been working. She denies fever, chills, chest pain, shortness of breath, dizziness, nausea, vomiting, diarrhea. No further complaints reported at this time. Related Data Home Medications Medication Instructions Recorded Confirmed multivitamin (Multiple Vitamins) 1 tab PO QDAY #0 10/25/16 01/16/21 lyderm 0.05? TOP 09/12/17 01/16/21 calcium carb 333 mg-vit D3 133 2 tab PO .qd tab 11/04/18 01/16/21 unit-mag ox 133 mg-zinc oxide 5 mg tab cholecalciferol (vitamin D3) 125 5,000 unit PO DAILY 11/04/18 01/16/21 mcg (5,000 unit) capsule turmeric 400 mg capsule 400 mg PO .qd cap 11/04/18 01/16/21 pentosan polysulfate sodium 100 mg 100 mg PO TID 01/19/20 01/16/21 capsule (Elmiron) Previous Rx's Medication Instructions Recorded [Compression Socks] #2 01/13/17 diclofenac sodium 3 % topical gel 1 applictn TOP BID #100 gram 05/05/18 mupirocin 2 % topical ointment 1 applic TOP TID #30 gram 03/01/19 lorazepam 0.5 mg tablet (Ativan) 0.5 mg PO PRN PRN #90 tab 07/23/19 hydroxyzine HCl 25 mg tablet 25 mg PO QID PRN #30 tab 12/10/19 duloxetine 20 mg capsule,delayed 20 mg PO DAILY #90 cap 01/26/20 release atenolol 25 mg tablet 50 mg PO QDAY #180 tab 05/18/20 rizatriptan 10 mg tablet (Maxalt) 10 mg PO QDAYP PRN #30 tab 06/12/20 oxybutynin chloride 5 mg tablet 5 mg PO BID #180 tab 08/18/20 oxycodone 5 mg tablet 5 mg PO BID PRN #20 tab 10/02/20 acetaminophen 300 mg-codeine 30 mg 1 tab PO DAILY PRN #30 tab 12/19/20 tablet omeprazole 20 mg capsule,delayed See Rx Instructions .ROUTE 01/02/21 release .COMPLEX #180 cap diazepam 10 mg tablet (Valium) 5 mg PO .COMPLEX PRN #10 tab 02/14/21 cephalexin 500 mg capsule 500 mg PO BID #14 cap 02/18/21 Allergies Allergy/AdvReac Type Severity Reaction Status Date / Time ranitidine [RANITIDINE] Allergy Unknown Verified 12/29/20 11:15 Review of Systems <Lee Iverson PA-C - Last Filed: 02/22/21 12:34> Constitutional Constitutional: Denies chills, Denies fever(s), Denies lethargy and Denies weakness ENT Ears, Nose, Mouth, and Throat: Denies change in voice, Denies neck pain and Denies sore throat Cardiovascular Cardiovascular: Denies chest pain, Denies irregular heart rhythm, Denies lightheadedness, Denies palpitations, Denies dyspnea, Denies dyspnea on exertion and Denies orthopnea Respiratory Respiratory: Denies cough, Denies dyspnea, Denies dyspnea on exertion and Denies wheezing Gastrointestinal Gastrointestinal: Denies abdominal pain, Denies change in bowel habits, Denies diarrhea, Denies nausea and Denies vomiting Genitourinary Genitourinary: Reports dysuria Musculoskeletal Musculoskeletal: Denies neck pain Integumentary/Breasts Skin/Breast: Denies pruritus, Denies erythema, Denies rash and Reports wounds (Right lower leg) Neurologic Neurologic: Denies weakness Endocrine Endocrine: Denies palpitations Allergic/Immunologic Allergic/Immunologic: Denies wheezing Patient History <Lee Iverson PA-C - Last Filed: 02/22/21 12:34> Medical History Anxiety (02/01/16) Bursitis, shoulder Cataract (2014) Chicken pox Chronic headaches Chronic interstitial cystitis (02/01/16) Depression Depression Eczema (1989) Edema (02/01/16) Essential hypertension (02/01/16) Facet arthropathy, lumbar Fractures (2004) Gastroesophageal reflux disease without esophagitis (1999) Hearing loss (2012) Hemorrhoids (1989) History of heavy periods Impingement syndrome of right shoulder Insomnia (02/01/16) Lumbar radiculopathy Measles (1963) Migraines Mumps Osteopenia (2015) Osteoporosis Rubella (1963) Skin cancer Tinnitus (2012) Trochanteric bursitis of both hips Urinary incontinence (2011) Surgical History Anesthesia History of arm fracture (~194) History of cataract removal with insertion of prosthetic lens (01/2016) History of tonsillectomy (~1944) Family History Daughter Breast cancer Son FSHD (facioscapulohumeral muscular dystrophy) Social History marital status: household members: spouse pets and animals: Yes education level: master's degree occupational status: other seatbelt use: always water heater temp set < 120 deg: Yes working smoke detector in home: Yes fire extinguisher in home: Yes carbon monox detector in home: Yes Smoking Status: Never smoker alcohol intake: current (rare) during the past year weight has: increased > 10 lbs well-balanced diet: daily or most days daily servings fruits/ve-1 eating out: 1-3 times/week Type(s) of exercise: aerobic, bicycling and weight lifting frequency: 3-4 times per week duration: 30-45 minutes/day Smoking Status: Never smoker alcohol intake frequency: holidays/special occasions only Substance Use Type: does not use Exam <Lee Iverson PA-C - Last Filed: 02/22/21 12:34> Narrative Exam Narrative: GENERAL: 80 year old patient appears stated age. Well-developed patient, in mild distress. HEAD: Atraumatic. Normocephalic. EYES: Pupils equal round and reactive. Extraocular motions intact. No scleral icterus. No injection or drainage. ENT: Nose without bleeding, purulent drainage. Throat without erythema, tonsillar hypertrophy or exudate. Airway patent. NECK: Trachea midline. Non tender CARDIOVASCULAR: Regular rate and rhythm without murmurs, gallops, or rubs. RESPIRATORY: Clear to auscultation. Breath sounds equal bilaterally. No wheezes, rales, or rhonchi. GASTROINTESTINAL: Abdomen soft, non-tender, nondistended. EXTREMITIES: No edema or joint tenderness. BACK: Nontender without deformity or crepitance. No flank tenderness. NEURO: AOx3. SKIN: No rash or erythema of visible areas. Skin tear over the anterior aspect of the distal right leg with mild surrounding erythema. Initial Vital Signs Initial Vital Signs: Vital Signs Temperature 98.0 F 02/18/21 17:35 Pulse Rate 69 02/18/21 17:35 Respiratory Rate 22 02/18/21 17:35 Blood Pressure 134/71 02/18/21 17:35 Pulse Oximetry 96 02/18/21 17:35 <Kimberlee James MD - Last Filed: 02/25/21 21:30> Initial Vital Signs Initial Vital Signs: Vital Signs Temperature 98.0 F 02/18/21 17:35 Pulse Rate 69 02/18/21 17:35 Respiratory Rate 22 02/18/21 17:35 Blood Pressure 134/71 02/18/21 17:35 Pulse Oximetry 96 02/18/21 17:35 Course <eLe Iverson PA-C - Last Filed: 02/22/21 12:34> Course Course Narrative: Patient presents today for an evaluation a cat scratch injury sustained to the right leg earlier today. Orders Ordered: Discontinued Medications Cephalexin HCl (Cephalexin 250 Mg Capsule) 500 mg PO NOW ONE Stop: 02/18/21 20:01 Last Admin: 02/18/21 20:23 Dose: 500 mg Documented by: SOBEIDA Vital Signs Vital signs: Vital Signs - 8 hr 02/18/21 17:35 02/18/21 19:15 Temperature 98.0 F Pulse Rate 69 88 Respiratory Rate 22 Blood Pressure 134/71 114/65 Pulse Oximetry 96 95 <Kimberlee James MD - Last Filed: 02/25/21 21:30> Orders Ordered: Discontinued Medications Cephalexin HCl (Cephalexin 250 Mg Capsule) 500 mg PO NOW ONE Stop: 02/18/21 20:01 Last Admin: 02/18/21 20:23 Dose: 500 mg Documented by: KGALLAG Vital Signs Vital signs: Vital Signs - 8 hr 02/18/21 17:35 02/18/21 19:15 Temperature 98.0 F Pulse Rate 69 88 Respiratory Rate 22 Blood Pressure 134/71 114/65 Pulse Oximetry 96 95 MDM - Skin/Abscess/Foreign Bdy <Lee Iverson PA-C - Last Filed: 02/22/21 12:34> Lab Data Labs: Lab Results 02/18/21 Range/Units 18:47 Urine RBC None seen (0-5/HPF) Urine WBC 5-10/hpf H (0-5/HPF) Ur Squamous Epith Cells 1-5 /hpf (0-5/HPF) Calcium Oxalate Crystal Moderate H Urine Bacteria Occasional (0-1) (None) Urine Mucus 1+ H (Negative) Ur Culture Indicated? Specimen cultured Urine Dip Bedside Urine Glucose Negative Bedside Urine Bilirubin - Negative Bedside Urine Ketone - Negative Urine Specific [place] 1.025 Bedside Urine Occult Blood - Negative Bedside Urine pH 6 Bedside Urine Protein - Negative Bedside Urine Urobilinogen - Negative Bedside Urine Nitrite - Negative Bedside Urine Leukocytes + 70 Esterase MDM Narrative Medical decision making narrative: Patient presents today for an evaluation a cat scratch injury sustained to the right leg earlier today. To consider superficial skin tear versus cellulitis. Physical examination is reassuring as the wound is not excessively warm or erythematous. Additionally, the patient has stated that painful area has not spread or radiated to other parts of her right lower extremity and no excessive swelling surrounding the injury has been noted. Discussed with patient plan to begin antibiotic therapy, patient agrees to plan. Strict return precautions discussed with patient prior to discharge. <Kimberlee James MD - Last Filed: 02/25/21 21:30> Lab Data Labs: Lab Results 02/18/21 Range/Units 18:47 Urine RBC None seen (0-5/HPF) Urine WBC 5-10/hpf H (0-5/HPF) Ur Squamous Epith Cells 1-5 /hpf (0-5/HPF) Calcium Oxalate Crystal Moderate H Urine Bacteria Occasional (0-1) (None) Urine Mucus 1+ H (Negative) Ur Culture Indicated? Specimen cultured Urine Dip Bedside Urine Glucose Negative Bedside Urine Bilirubin - Negative Bedside Urine Ketone - Negative Urine Specific [place] 1.025 Bedside Urine Occult Blood - Negative Bedside Urine pH 6 Bedside Urine Protein - Negative Bedside Urine Urobilinogen - Negative Bedside Urine Nitrite - Negative Bedside Urine Leukocytes + 70 Esterase Discharge Plan Departure Patient Disposition: Home Clinical Impression: Skin tear, Acute UTI Instructions: DI for Urinary Tract Infection (UTI), DI for Wound Infection Activity Restrictions/Additional Instructions: *You have been diagnosed with skin tear in acute UTI *What to do: *Please continue to take your regular medications as directed. [X] New medication prescriptions sent to your pharmacy: [facility] (Cephalexin) [ ] New medication written as a paper prescription [ ] No new medications given *Please follow up with your primary care provider in 2-3 days, call for an appointment. Let them know you were seen in the Emergency Department and that we ask that you be seen in follow up. We will electronically transmit a record of today's note if your PCP is in our system *If you do not have a primary care provider please contact the [facility] Resource line at [phone]. They will ask some questions about your medical history and help get you set up with a doctor in the community. *Return to Emergency Department if you should have any new, worsening or concerning symptoms, such as fever greater than 101 F, shaking chills, worsening pain, persistent vomiting or other bothersome symptoms. Prescriptions: New cephalexin 500 mg capsule 500 mg PO BID Qty: 14 RF: 0 No Action mupirocin 2 % ointment 1 applic TOP TID Qty: 30 RF: 0 Elmiron 100 mg capsule 100 mg PO TID RF: 0 multivitamin [Multiple Vitamins] 1 EACH tablet 1 tab PO QDAY Qty: 0 RF: 0 [Compression Socks] Qty: 2 RF: 0 lorazepam [Ativan] 0.5 mg tablet 0.5 mg PO PRN PRN (Reason: anxiety) Qty: 90 RF: 0 hydroxyzine HCl 25 mg tablet 25 mg PO QID PRN (Reason: itching) Qty: 30 RF: 0 duloxetine 20 mg capsule,delayed release(DR/EC) 20 mg PO DAILY Qty: 90 RF: 3 atenolol 25 mg tablet 50 mg PO QDAY Qty: 180 RF: 3 rizatriptan [Maxalt] 10 mg tablet 10 mg PO QDAYP PRN (Reason: migraine headache) Qty: 30 RF: 1 oxycodone 5 mg tablet 5 mg PO BID PRN (Reason: pain) Qty: 20 RF: 0 acetaminophen-codeine 300-30 mg tablet 1 tab PO DAILY PRN (Reason: pain) Qty: 30 RF: 0 omeprazole 20 mg capsule,delayed release(DR/EC) See Rx Instructions .ROUTE .COMPLEX Qty: 180 RF: 1 diazepam [Valium] 10 mg tablet 5 mg PO .COMPLEX PRN (Reason: sedation) Qty: 10 RF: 0 lyderm 0.05? TOP RF: 0 calcium carb-D3-mag ox-zinc ox 333 mg-133 unit -133 mg-5 mg tablet 2 tab PO .qd RF: 0 cholecalciferol (vitamin D3) 5,000 unit capsule 5,000 unit PO DAILY RF: 0 turmeric 400 mg capsule 400 mg PO .qd RF: 0 diclofenac sodium 3 % gel 1 applictn TOP BID Qty: 100 RF: 2 oxybutynin chloride 5 mg tablet 5 mg PO BID Qty: 180 RF: 3 Referrals: Rebecca Webber MD [Primary Care Provider] - <Kimberlee James MD - Last Filed: 02/25/21 21:30> [facility] I was immediately available in the department for consultation throughout this patient's visit. I agree with documentation as above. Kimberlee James MD
[2021-02-18] MEDS: cephALEXin 250 MG CAPSULE 500 MG PO (20:23)
[2021-02-18 20:39] VITALS: BP 112/73; PULSE 90; RESP 16; O2SAT 95
== END 2021-02-18 20:39 | disposition home or self-care (01) ==
PROVIDERS: Emergency Provider Physician Assistant; PCP Family Medicine
DX: S80.811A Abrasion, right lower leg, initial encounter (principal); N39.0 Urinary tract infection, site not specified; W55.03XA Scratched by cat, initial encounter
CPT/HCPCS: 81003; 81015; 87086; 99283

== ENCOUNTER 2021-03-02 14:28 | Emergency (ER) | payer OTHER, SELFPAY ==
[2021-03-02 14:35] VITALS: BP 135/65; PULSE 90; RESP 18; TEMP 36.6; O2SAT 97; BMI 34.3
[2021-03-02 15:16] LABS: Add Manual Diff / Slide Review NO; Basophils Absolute Auto 100 /uL (0-100); Basophils Percent Auto 0.8 % (0-2); Eosinophils Absolute Auto 200 /uL (0-450); Hematocrit 41.2 % (36-46); Hemoglobin 13.7 g/dL (12.0-16.0); Lymphocytes Absolute Auto 2400 /uL (1100-4500); Lymphocytes Percent Auto 35.1 % (25-40); Mean Corpuscular HGB Conc 33.3 % (30-36); Mean Corpuscular Hemoglobin 31.7 PG (26-34); Mean Corpuscular Volume 95.4 fL (80-100); Monocytes Absolute Auto 800 /uL (0-900); Monocytes Percent Auto 11.2 % (3-14); Neutrophils Absolute Auto 3400 /uL (1500-7000); Neutrophils Percent Auto 49.9 % (50-75); Platelet Count 213 X10^3/uL (150-400); Red Blood Cell Count 4.31 X10^6/uL (4.0-5.2); Red Cell Distribution Width 14.3 % (11.6-14.8); White Blood Cell Count 6.7 X10^3/uL (4.5-11.0)
[2021-03-02 15:22] LABS: Alanine Aminotransferase 22 IU/L (<35); Albumin 4.3 g/dL (3.5-5.0); Albumin Globulin Ratio 1.7 (1.0-2.8); Alkaline Phosphatase 59 U/L (38-126); Aspartate Aminotransferase 28 IU/L (14-36); BUN Creatinine Ratio 23.7 (6-22); Bilirubin Total 0.9 mg/dL (0.2-1.3); Blood Urea Nitrogen 14 mg/dL (7-17); Calcium 9.2 mg/dL (8.4-10.2); Carbon Dioxide 28 mmol/L (22-32); Chloride 105 mmol/L (98-107); Estimated Glomerular Filt Rate > 60.0 mL/min (>60); Globulin 2.6 g/dL (1.7-4.1); Glucose 108 mg/dL (80-110); HEMOLYSIS 47 (0-50); Potassium 4.3 mmol/L (3.4-5.1); Sodium 140 mmol/L (137-145); Total Protein 6.9 g/dL (6.3-8.2)
[2021-03-02 15:31] LABS: Lipase < 10 U/L (23-300)
[2021-03-02] MEDS: PHENAZOPYRIDINE 100 MG TABLET 200 MG PO (18:02)
--- NOTE | 2021-03-02 18:08 | ED.GENADULT ---
HPI - General Adult General Chief complaint: Urogenital-Female Stated complaint: UTI Time Seen by Provider: 03/02/21 18:07 Source: patient Mode of arrival: Ambulatory Limitations: no limitations History of Present Illness HPI narrative: 89-year-old woman with a history of interstitial cystitis, hypertension, depression and anxiety, chronic pain who presents with continued lower pelvic cramping and discomfort. She was seen on February 18 with a cat scratch of the right lower extremity was treated with Keflex for that and feels that the right lower extremity wound is healing nicely and she felt that the bladder spasm was slightly improved with the Keflex. She has completed the Keflex today and is concerned the bladder spasm has a completely resolved. She does recognize that it is difficult to differentiate at times between interstitial cystitis and urinary tract infections. She has had multiple treatments in the past but is not currently on any specific medication for interstitial cystitis. Urine February 18 had white blood cells and the culture returned with no growth. She describes no fevers, cough, chills, abdominal pain, flank pain, chest pain, palpitations. She notes that the scratch to the right lower leg is healing nicely with no discharge Related Data Home Medications Medication Instructions Recorded Confirmed multivitamin (Multiple Vitamins) 1 tab PO QDAY #0 10/25/16 01/16/21 lyderm 0.05? TOP 09/12/17 01/16/21 calcium carb 333 mg-vit D3 133 2 tab PO .qd tab 11/04/18 01/16/21 unit-mag ox 133 mg-zinc oxide 5 mg tab cholecalciferol (vitamin D3) 125 5,000 unit PO DAILY 11/04/18 01/16/21 mcg (5,000 unit) capsule turmeric 400 mg capsule 400 mg PO .qd cap 11/04/18 01/16/21 pentosan polysulfate sodium 100 mg 100 mg PO TID 01/19/20 01/16/21 capsule (Elmiron) Previous Rx's Medication Instructions Recorded [Compression Socks] #2 01/13/17 diclofenac sodium 3 % topical gel 1 applictn TOP BID #100 gram 05/05/18 mupirocin 2 % topical ointment 1 applic TOP TID #30 gram 03/01/19 lorazepam 0.5 mg tablet (Ativan) 0.5 mg PO PRN PRN #90 tab 07/23/19 hydroxyzine HCl 25 mg tablet 25 mg PO QID PRN #30 tab 12/10/19 duloxetine 20 mg capsule,delayed 20 mg PO DAILY #90 cap 01/26/20 release atenolol 25 mg tablet 50 mg PO QDAY #180 tab 05/18/20 rizatriptan 10 mg tablet (Maxalt) 10 mg PO QDAYP PRN #30 tab 06/12/20 oxybutynin chloride 5 mg tablet 5 mg PO BID #180 tab 08/18/20 oxycodone 5 mg tablet 5 mg PO BID PRN #20 tab 10/02/20 acetaminophen 300 mg-codeine 30 mg 1 tab PO DAILY PRN #30 tab 12/19/20 tablet omeprazole 20 mg capsule,delayed See Rx Instructions .ROUTE 01/02/21 release .COMPLEX #180 cap diazepam 10 mg tablet (Valium) 5 mg PO .COMPLEX PRN #10 tab 02/14/21 cephalexin 500 mg capsule 500 mg PO BID #14 cap 02/18/21 phenazopyridine 100 mg tablet 100 mg PO TID PRN #30 tab 03/02/21 (Pyridium) Allergies Allergy/AdvReac Type Severity Reaction Status Date / Time ranitidine [RANITIDINE] Allergy Unknown Verified 03/02/21 14:35 Review of Systems Review of Systems Narrative: Remainder of complete review of systems is otherwise unremarkable except for that included in the HPI. Patient History Medical History Anxiety (02/01/16) Bursitis, shoulder Cataract (2014) Chicken pox Chronic headaches Chronic interstitial cystitis (02/01/16) Depression Depression Eczema (1989) Edema (02/01/16) Essential hypertension (02/01/16) Facet arthropathy, lumbar Fractures (2004) Gastroesophageal reflux disease without esophagitis (1999) Hearing loss (2012) Hemorrhoids (1989) History of heavy periods Impingement syndrome of right shoulder Insomnia (02/01/16) Lumbar radiculopathy Measles (1963) Migraines Mumps Osteopenia (2015) Osteoporosis Rubella (1963) Skin cancer Tinnitus (2012) Trochanteric bursitis of both hips Urinary incontinence (2011) Surgical History Anesthesia History of arm fracture (~194) History of cataract removal with insertion of prosthetic lens (01/2016) History of tonsillectomy (~194) Family History Daughter Breast cancer Son FSHD (facioscapulohumeral muscular dystrophy) Social History marital status: household members: spouse pets and animals: Yes education level: master's degree occupational status: other seatbelt use: always water heater temp set < 120 deg: Yes working smoke detector in home: Yes fire extinguisher in home: Yes carbon monox detector in home: Yes Smoking Status: Never smoker alcohol intake: current (rare) during the past year weight has: increased > 10 lbs well-balanced diet: daily or most days daily servings fruits/ve-1 eating out: 1-3 times/week Type(s) of exercise: aerobic, bicycling and weight lifting frequency: 3-4 times per week duration: 30-45 minutes/day Smoking Status: Never smoker alcohol intake frequency: holidays/special occasions only Substance Use Type: does not use Exam Narrative Exam Narrative: General: Healthy appearing, in no acute distress. Able to give a complete and coherent history. Well-nourished well-developed HEENT: Moist mucous membranes, normal sclera with reactive pupils, Respiratory: Lungs are clear to auscultation, no wheezing no rales no rhonchi. Full and symmetrical air movement Cardiac: Regular rate and rhythm no murmurs no bruits Abdomen: Soft, nontender, good bowel tones, minor suprapubic discomfort, no rebound or guarding. No flank pain Skin: Warm and dry, no rashes Neurologic: Grossly neurologically intact with no obvious asymmetries or abnormalities Extremities: Scratch to the right anterior fournier that is healing nicely with no evidence of continued infection, well perfused, 1+ bilateral lower extremity edema Psych: Cooperative, appropriate insight and affect Initial Vital Signs Initial Vital Signs: Vital Signs Temperature 97.8 F 03/02/21 14:35 Pulse Rate 90 03/02/21 14:35 Respiratory Rate 18 03/02/21 14:35 Blood Pressure 135/65 03/02/21 14:35 Pulse Oximetry 97 03/02/21 14:35 Course Orders Ordered: ED Orders 03/02/21 14:35 Complete Blood Count AUTO DIFF Stat Comprehensive Metabolic Panel Stat Lipase Stat Discontinued Medications Phenazopyridine HCl (Phenazopyridine 100 Mg Tablet) 200 mg PO NOW ONE Stop: 03/02/21 17:58 Last Admin: 03/02/21 18:02 Dose: 200 mg Documented by: GREG Vital Signs Vital signs: Vital Signs - 8 hr 03/02/21 14:35 Temperature 97.8 F Pulse Rate 90 Respiratory Rate 18 Blood Pressure 135/65 Pulse Oximetry 97 Medical Decision Making Lab Data Result diagrams: 03/02/21 14:35 03/02/21 14:35 Labs: Lab Results 03/02/21 03/02/21 Range/Units 14:35 14:35 WBC 6.7 (4.5-11.0) X10^3/uL RBC 4.31 (4.0-5.2) X10^6/uL Hgb 13.7 (12.0-16.0) g/dL Hct 41.2 (36-46) % MCV 95.4 (80-100) fL MCH 31.7 (26-34) PG MCHC 33.3 (30-36) % RDW 14.3 (11.6-14.8) % Plt Count 213 (150-400) X10^3/uL Neut % (Auto) 49.9 L (50-75) % Lymph % (Auto) 35.1 (25-40) % [place] % (Auto) 11.2 (3-14) % Eos % (Auto) 3.0 (2-4) % Baso % (Auto) 0.8 (0-2) % Neut # (Auto) 3400 (8262-6858) /uL Lymph # (Auto) 2400 (2505-2797) /uL [place] # (Auto) 800 (0-900) /uL Eos # (Auto) 200 (0-450) /uL Baso # (Auto) 100 (0-100) /uL Sodium 140 (137-145) mmol/L Potassium 4.3 (3.4-5.1) mmol/L Chloride 105 (98-107) mmol/L Carbon Dioxide 28 (22-32) mmol/L BUN 14 (7-17) mg/dL Creatinine 0.59 (0.52-1.04) mg/dL Estimated GFR > 60.0 (>60) mL/min BUN/Creatinine Ratio 23.7 H (6-22) Glucose 108 (80-110) mg/dL Calcium 9.2 (8.4-10.2) mg/dL Total Bilirubin 0.9 (0.2-1.3) mg/dL AST 28 (14-36) IU/L ALT 22 (<35) IU/L Alkaline Phosphatase 59 (38-126) U/L Total Protein 6.9 (6.3-8.2) g/dL Albumin 4.3 (3.5-5.0) g/dL Globulin 2.6 (1.7-4.1) g/dL Albumin/Globulin Ratio 1.7 (1.0-2.8) Lipase < 10 L (23-300) U/L Urine Dip Bedside Urine Glucose Negative Bedside Urine Bilirubin - Negative Bedside Urine Ketone - Negative Urine Specific [place] 1.020 Bedside Urine Occult Blood - Negative Bedside Urine pH 6.0 Bedside Urine Protein - Negative Bedside Urine Urobilinogen - Negative Bedside Urine Nitrite - Negative Bedside Urine Leukocytes - Negative Esterase Point of care testing: Urine Dip Bedside Urine Glucose Negative Bedside Urine Bilirubin - Negative Bedside Urine Ketone - Negative Urine Specific [place] 1.020 Bedside Urine Occult Blood - Negative Bedside Urine pH 6.0 Bedside Urine Protein - Negative Bedside Urine Urobilinogen - Negative Bedside Urine Nitrite - Negative Bedside Urine Leukocytes - Negative Esterase MDM Narrative Medical decision making narrative: 80-year-old woman with increased bladder spasm and discomfort. Clinical details today do not suggest urinary tract infection, pyelonephritis or sepsis. She was given a dose of peridium see if this might be helpful. In the past she had been on pen toe stand Francheska sulfate 100 mg daily and had found that useful. She has had bladder installations and has not found that helpful. Does not look like she has ever been on low-dose evening amitriptyline but that might be a reasonable thing to at least discuss. Suggested that she continue with the peridium for the next 5-6 days as needed and follow-up with her primary care provider. Discharge Plan Departure Patient Disposition: Home Clinical Impression: Chronic interstitial cystitis Instructions: DI for Interstitial Cystitis Activity Restrictions/Additional Instructions: I am sorry that you are suffering with this bladder spasm and pain Today, there is no evidence of overwhelming infection, no kidney function and your urine is reassuring we normal. The urine culture from February 18 did not end up showing bladder infection. I suspect that your symptoms are related to your interstitial cystitis rather than infection. I have given you a prescription for pyridium to help with the bladder spasm, this is the medicine that you are given by mouth in the emergency department. 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 Webber if to come up with a regimen that it decreases your suffering. Please schedule follow-up appointment with her, she may have some other thoughts on additional chronic medications such as low-dose amitriptyline. She will also help you with a referral to Urology or Urogynecology to see what additional options may be available. Prescriptions: New phenazopyridine [Pyridium] 100 mg tablet 100 mg PO TID PRN (Reason: pain) Qty: 30 RF: 0 No Action mupirocin 2 % ointment 1 applic TOP TID Qty: 30 RF: 0 Elmiron 100 mg capsule 100 mg PO TID RF: 0 multivitamin [Multiple Vitamins] 1 EACH tablet 1 tab PO QDAY Qty: 0 RF: 0 [Compression Socks] Qty: 2 RF: 0 lorazepam [Ativan] 0.5 mg tablet 0.5 mg PO PRN PRN (Reason: anxiety) Qty: 90 RF: 0 hydroxyzine HCl 25 mg tablet 25 mg PO QID PRN (Reason: itching) Qty: 30 RF: 0 duloxetine 20 mg capsule,delayed release(DR/EC) 20 mg PO DAILY Qty: 90 RF: 3 atenolol 25 mg tablet 50 mg PO QDAY Qty: 180 RF: 3 rizatriptan [Maxalt] 10 mg tablet 10 mg PO QDAYP PRN (Reason: migraine headache) Qty: 30 RF: 1 oxycodone 5 mg tablet 5 mg PO BID PRN (Reason: pain) Qty: 20 RF: 0 acetaminophen-codeine 300-30 mg tablet 1 tab PO DAILY PRN (Reason: pain) Qty: 30 RF: 0 omeprazole 20 mg capsule,delayed release(DR/EC) See Rx Instructions .ROUTE .COMPLEX Qty: 180 RF: 1 diazepam [Valium] 10 mg tablet 5 mg PO .COMPLEX PRN (Reason: sedation) Qty: 10 RF: 0 lyderm 0.05? TOP RF: 0 calcium carb-D3-mag ox-zinc ox 333 mg-133 unit -133 mg-5 mg tablet 2 tab PO .qd RF: 0 cholecalciferol (vitamin D3) 5,000 unit capsule 5,000 unit PO DAILY RF: 0 turmeric 400 mg capsule 400 mg PO .qd RF: 0 diclofenac sodium 3 % gel 1 applictn TOP BID Qty: 100 RF: 2 cephalexin 500 mg capsule 500 mg PO BID Qty: 14 RF: 0 oxybutynin chloride 5 mg tablet 5 mg PO BID Qty: 180 RF: 3 Referrals: Rebecca Webber MD [Primary Care Provider] -
== END 2021-03-02 18:38 | disposition home or self-care (01) ==
PROVIDERS: Emergency Medicine; Emergency Provider Emergency Medicine; PCP Family Medicine
DX: N30.10 Interstitial cystitis (chronic) without hematuria (principal)
CPT/HCPCS: 36415; 80053; 81003; 83690; 85025; 99283

== ENCOUNTER → 2021-08-20 13:12 | Outpatient (CLI) | payer OTHER, SELFPAY ==
[2021-08-20 16:22] LABS: COVID19 -Nasal RAPID Negative (Negative)
== END ==
PROVIDERS: PCP Family Medicine; Visit Provider Physical Medicine & Rehabilitation
DX: Z20.822 Contact with and (suspected) exposure to COVID-19 (principal)
CPT/HCPCS: 87635; C9803

== ENCOUNTER 2021-08-21 12:53 | Outpatient (CLI) | payer OTHER, SELFPAY ==
[2021-08-21] VITALS (8 sets, daily range): BP systolic 104–128; BP diastolic 63–72; PULSE 53–64; RESP 16–20; TEMP 36.7; O2SAT 95–100
--- NOTE | 2021-08-21 13:30 | DI.RAD.S_ITS ---
PROCEDURE: PAIN L/S FACET INJ/BLK 1ST NICOLETTE COMPARISON: [facility], , PAIN L/S FACET INJ/BLK 1ST NICOLETTE, 02/13/2021, 15:46. INDICATIONS: SPONDYLOSIS FINDINGS: Fluoroscopic spot filming was performed to verify placement of spinal needles on both sides at the L3, L4, and L5 levels, as labeled on the films. Appropriate location of the needle tips was confirmed by injection of iodinated contrast. IMPRESSION: Intraprocedural examination demonstrating appropriate positions of the needles. Dictated by: Jose Maguire M.D. on 08/21/2021 at 15:02 Approved by: Jose Maguire M.D. on 08/21/2021 at 15:03
[2021-08-21] MEDS: MIDAZOLAM 2 MG/2 ML VIAL IV (13:54)
[2021-08-21] MEDS: IOPAMIDOL 15 ML VIAL 3 ML INJ (13:59)
[2021-08-21] MEDS: BUPIVACAINE 0.5% (PF) VIAL 5 ML INJ (13:59)
[2021-08-21] MEDS: LIDOCAINE 1% 20 ML (13:59)
--- NOTE | 2021-08-21 14:15 | P.PCN_ITS ---
Date/Time/Diagnoses Date of procedure: 08/21/21 Time of procedure: 14:16 Pre-procedure diagnosis: FACET ARTHROPATHY Post-procedure diagnosis: same Procedure Notes Procedure: 1. BILATERAL L3, L4 AND L5 DIAGNOSTIC MB BLOCKS Indications: [place] is referred by Dr. Webber for treatment of Bilateral Axial LBP. Physician: Kin Grant Total Fluoroscopy time (seconds): 12 Total sedation minutes: 15 Complications: none Procedure in detail & Post-procedure care: DESCRIPTION OF PROCEDURE Fluoroscopically guided, contrast-controlled bilateral L3, L4 AND L5 medial branch blocks with 0.5cc of 0.5% Marcaine. Following review of allergy and review of potential side effects and complications, including, but not necessarily limited to, infection, allergic reaction, local tissue breakdown, nerve injury, paralysis, stroke and possible , the patient indicated that the patient understood and agreed to proceed. An informed consent document was signed by the patient, witnessed by a nurse, and placed in the patient's chart. After review of previous anaesthesic history and IV conscious sedation the patient was deemed safe to proceed with today's procedure with IV conscious sedation as ASA class II designation. Safety time-out was performed to confirm patient ID, procedure to be performed and site of procedure. IV sedation was accomplished with a combination of 2mg of Versed was administered by the RN after DO order, titrated to patient comfort during the course of the procedure while the patient remained responsive to all verbal commands In the prone position, following sterile prep and drape of the lumbar region, the right L3, L4 AND L5 anatomical location of the medial branch of the dorsal ramus was identified fluoroscopically. Subsequently an anesthetic skin wheal using 1% lidocaine solution was initiated at each of the anatomical spots. Subsequently then a 22-gauge 3.5-inch spinal needle was atraumatically introduced and advanced under fluoroscopic guidance at each of the corresponding sites at the right L3, L4 and L5 MB. After negative aspiration, 0.2cc of Isovue 200 was injected, confirming placement without vascular or intrathecal uptake. Subsequently then 0.5cc of 0.5% Marcaine solution was injected at each of the corresponding sites at the right L3, L4 and L5 medial branch locations. The identical procedure was replicated on the left. The patient tolerated the proc edure well without signs or symptoms of complications. The patient tolerated the procedure well without signs or symptoms of complications prior to transfer to the recovery area continued monitoring without incident. Post-procedure, the patient was monitored initiating provocative activities to measure the amount of relief from block of the facetogenic pain. The patient reported a VAS of 7 prior to the procedure and a post-procedure VAS of 1. It has been a pleasure to assist in the diagnostic and therapeutic care of your patient. POST OP INSTRUCTIONS The patient was provided with a Pain Log to complete over the next several hours and subsequent days prior to the patient's follow up with the ordering physician. If the patient has consulting services manager relief to the solution applied, then they may be a candidate for medial branch rhizotomy. The patient is aware, was provided, once again, with a Pain Log and will follow up with the referring physician for review and clinical correlation
== END 2021-08-21 14:34 | disposition home or self-care (01) ==
LOC: RAD 12:54
PROVIDERS: PCP Family Medicine; Referring Provider Physical Medicine & Rehabilitation; Visit Provider Physical Medicine & Rehabilitation
DX: M47.816 Spondylosis without myelopathy or radiculopathy, lumbar region (principal)
CPT/HCPCS: 64493; 64494; 99152; J2250

== ENCOUNTER → 2021-09-16 14:55 | Outpatient (CLI) | payer OTHER, SELFPAY | PROVIDERS: PCP Family Medicine; Visit Provider Physician Assistant | DX: R30.0 Dysuria (principal) | CPT/HCPCS: 87077; 87086; 87186 ==

== ENCOUNTER → 2021-09-24 15:43 | Outpatient (CLI) | payer OTHER, SELFPAY | PROVIDERS: PCP Family Medicine; Visit Provider Physician Assistant | DX: N34.3 Urethral syndrome, unspecified (principal) | CPT/HCPCS: 87077; 87086; 87186 ==

== ENCOUNTER → 2021-10-01 14:06 | Outpatient (CLI) | payer OTHER, SELFPAY | PROVIDERS: PCP Family Medicine; Visit Provider Nurse Practitioner Family | DX: R30.0 Dysuria (principal); N89.8 Other specified noninflammatory disorders of vagina | CPT/HCPCS: 87086; 87210 ==

== ENCOUNTER → 2021-10-17 10:35 | Outpatient (CLI) | payer OTHER, SELFPAY ==
--- NOTE | 2021-10-17 10:37 | DI.RAD.S_ITS ---
PROCEDURE: XR HAND RT MIN 3V INDICATIONS: 3rd digit PIP pain TECHNIQUE: 3 views of the hand(s) acquired. COMPARISON: None. FINDINGS: Bones: No fractures or dislocations. Carpal bones are normally aligned. Joint space narrowing, sclerosis, and periarticular lucencies are present predominantly involving the DIP joints. The bones appear demineralized. Soft tissues: Thin linear density projecting adjacent to the volar aspect of the 2nd digit MCP joint is non-specific, could represent sequela of remote trauma. IMPRESSION: 1. No acute osseous abnormality. 2. Polyarticular degenerative changes, most conspicuous at the DIP joints. There are periarticular lucencies that are indeterminate for subchondral cystic change or erosions. Dictated by: Jose Deras M.D. on 10/17/2021 at 15:37 Approved by: Jose Deras M.D. on 10/17/2021 at 15:42
== END ==
PROVIDERS: PCP Family Medicine; Referring Provider Physical Medicine & Rehabilitation; Visit Provider Physical Medicine & Rehabilitation
DX: M79.644 Pain in right finger(s); M65.331 Trigger finger, right middle finger; M47.816 Spondylosis without myelopathy or radiculopathy, lumbar region; M70.61 Trochanteric bursitis, right hip; M70.62 Trochanteric bursitis, left hip
CPT/HCPCS: 73130; 99214

== ENCOUNTER → 2021-12-03 13:35 | Outpatient (CLI) | payer OTHER, SELFPAY ==
[2021-12-03 14:23] LABS: COVID19 -Nasal RAPID Negative (Negative)
== END ==
PROVIDERS: PCP Family Medicine; Visit Provider Physical Medicine & Rehabilitation
DX: Z20.822 Contact with and (suspected) exposure to COVID-19 (principal)
CPT/HCPCS: 87635; C9803

== ENCOUNTER 2021-12-04 15:33 | Outpatient (CLI) | payer OTHER, SELFPAY ==
[2021-12-04] VITALS (8 sets, daily range): BP systolic 110–145; BP diastolic 56–75; PULSE 55–64; RESP 14–23; TEMP 36.7; O2SAT 95–98
--- NOTE | 2021-12-04 15:37 | DI.RAD.S_ITS ---
PROCEDURE: PAIN L/S FACET INJ/BLK 1ST NICOLETTE COMPARISON: [facility], XA, PAIN L/S FACET INJ/BLK 1ST NICOLETTE, 08/21/2021, 14:00. INDICATIONS: SPONDYLOSIS FINDINGS: Intraoperative fluoroscopic images shows spinal needle placement on right-side of L3, L4 and L5 left as labeled on the films. IMPRESSION: Fluoro guidance was provided intraoperatively for bilateral L3 through L5 medial branch block to be performed by the ordering physician. Dictated by: Michael Condon M.D. on 12/04/2021 at 17:06 Approved by: Michael Condon M.D. on 12/04/2021 at 17:08
[2021-12-04] MEDS: MIDAZOLAM 2 MG/2 ML VIAL IV (16:28)
[2021-12-04] MEDS: BUPIVACAINE 0.5% (PF) VIAL 5 ML INJ (16:30)
[2021-12-04] MEDS: IOPAMIDOL 15 ML VIAL 3 ML INJ (16:30)
[2021-12-04] MEDS: LIDOCAINE 1% 20 ML INJ (16:31)
--- NOTE | 2021-12-04 16:48 | PM.PROC.IR.1 ---
Date/Time/Diagnoses Date of procedure: 12/04/21 Time of procedure: 16:48 Pre-procedure diagnosis: 1. FACET ARTHROPATHY Post-procedure diagnosis: same Procedure Notes Procedure: 1. BILATERAL L3, L4 AND L5 DIAGNOSTIC MB BLOCKS Indications: [place] is referred by Dr. Webber for treatment of Bilateral Axial LBP. Physician: Kin Grant Total Fluoroscopy time (seconds): 10 Total sedation minutes: 14 Complications: none Procedure in detail & Post-procedure care: DESCRIPTION OF PROCEDURE Fluoroscopically guided, contrast-controlled bilateral L3, L4 AND L5 medial branch blocks with 0.5cc of 2% Lidocaine. Following review of allergy and review of potential side effects and complications, including, but not necessarily limited to, infection, allergic reaction, local tissue breakdown, nerve injury, paralysis, stroke and possible , the patient indicated that the patient understood and agreed to proceed. An informed consent document was signed by the patient, witnessed by a nurse, and placed in the patient's chart. After review of previous anaesthesic history and IV conscious sedation the patient was deemed safe to proceed with today's procedure with IV conscious sedation as ASA class II designation. Safety time-out was performed to confirm patient ID, procedure to be performed and site of procedure. IV sedation was accomplished with a combination of 2mg of Versed was administered by the RN after DO order, titrated to patient comfort during the course of the procedure while the patient remained responsive to all verbal commands In the prone position, following sterile prep and drape of the lumbar region, the right L3, L4 AND L5 anatomical location of the medial branch of the dorsal ramus was identified fluoroscopically. Subsequently an anesthetic skin wheal using 1% lidocaine solution was initiated at each of the anatomical spots. Subsequently then a 22-gauge 3.5-inch spinal needle was atraumatically introduced and advanced under fluoroscopic guidance at each of the corresponding sites at the right L3, L4 and L5 MB. After negative aspiration, 0.2cc of Isovue 200 was injected, confirming placement without vascular or intrathecal uptake. Subsequently then 0.5cc of 2% Lidocaine solution was injected at each of the corresponding sites at the right L3, L4 and L5 medial branch locations. The identical procedure was replicated on the left. The patient tolerated the procedure well without signs or symptoms of complications. The patient tolerated the procedure well without signs or symptoms of complications prior to transfer to the recovery area continued monitoring without incident. Post-procedure, the patient was monitored initiating provocative activities to measure the amount of relief from block of the facetogenic pain. The patient reported a VAS of 7 prior to the procedure and a post-procedure VAS of 1. It has been a pleasure to assist in the diagnostic and therapeutic care of your patient. POST OP INSTRUCTIONS The patient was provided with a Pain Log to complete over the next several hours and subsequent days prior to the patient's follow up with the ordering physician. If the patient has entry level sales associate relief to the solution applied, then they may be a candidate for medial branch rhizotomy. The patient is aware, was provided, once again, with a Pain Log and will follow up with the referring physician for review and clinical correlation
== END 2021-12-04 17:08 | disposition home or self-care (01) ==
LOC: RAD 15:36
PROVIDERS: PCP Family Medicine; Referring Provider Physical Medicine & Rehabilitation; Visit Provider Physical Medicine & Rehabilitation
DX: M47.816 Spondylosis without myelopathy or radiculopathy, lumbar region (principal)
CPT/HCPCS: 64493; 64494; 99152; J2250

== ENCOUNTER → 2022-04-13 11:56 | Outpatient (CLI) | payer OTHER, SELFPAY | PROVIDERS: PCP Internal Medicine; Visit Provider Physician Assistant Medical | DX: R30.0 Dysuria (principal) | CPT/HCPCS: 87086 ==